=== PATIENT | female | born 1970 | race Caucasian/White ===

== ENCOUNTER 2017-06-05 21:13 | Emergency (ER) | payer SELFPAY ==
[~2017-06-05] VITALS: Ht 139.7 cm; Wt 93.0 kg
[2017-06-05 21:41] VITALS: BP 171/92
[2017-06-05] MEDS ORDERED: traMADol 50 MG TABLET PO ONE (22:00)
[2017-06-05] MEDS ORDERED: TRAM50TA PO (22:24)
--- NOTE | 2017-06-05 22:25 | PHYS DOC ---
Past Medical History Past Medical History: Other Additional Past Medical Histor: cycrodosis, nodules on lung, pancrease cyst, hearing problems, uterine CA Past Surgical History: Hysterectomy Alcohol Use: None Drug Use: None Adult General Chief Complaint Chief Complaint: LOWEREXTREMITY INJURY [facility] HPI Patient is a 47 year old female presents to the emergency department complaints of left knee pain. Patient states on May 26 she fell landing on the knee. She was evaluated at [facility] diagnosed with a patella fracture and asked to follow-up with orthopedics. Patient states that she was unable to follow-up with orthopedics and is here for persistent pain. Patient has been wearing an [id number] purchased knee immobilizer and she states that the immobilizer at the previous hospital was too big. Review of Systems Review of Systems Constitutional: Denies fever or chills [] Eyes: Denies change in visual acuity, redness, or eye pain [] HENT: Denies nasal congestion or sore throat [] Respiratory: Denies cough or shortness of breath [] Cardiovascular: No additional information not addressed in HPI [] GI: Denies abdominal pain, nausea, vomiting, bloody stools or diarrhea [] : Denies dysuria or hematuria [] Musculoskeletal: Left knee pain Integument: Denies rash or skin lesions [] Neurologic: Denies headache, focal weakness or sensory changes [] Endocrine: Denies polyuria or polydipsia [] Current Medications Current Medications Current Medications Medications (Trade) Dose Ordered Sig/Moraima Start Time Stop Time Status Last Admin Dose Admin Tramadol HCl (Ultram) 50 mg 1X ONCE 06/05/17 22:00 06/05/17 22:01 DC 06/05/17 21:55 50 MG Allergies Allergies Allergies Coded Allergies Type Severity Reaction Last Updated Verified No Known Drug Allergies 06/05/17 No Physical Exam Physical Exam Constitutional: Well developed, well nourished, no acute distress, non-toxic appearance. [] Neck: Normal range of motion, no tenderness, supple, no stridor. [] Cardiovascular:Heart rate regular rhythm, no murmur [] Lungs & Thorax: Bilateral breath sounds clear to auscultation [] Skin: Warm, dry, no erythema, no rash. [] Back: No tenderness, no CVA tenderness. [] Extremities: Left lower extremity exam: Left hip and left ankle exam unremarkable. Left knee without swelling without ecchymosis without apparent trauma. She is diffusely tender to palpate. Neurovascular intact distally. Neurologic: Alert and oriented X 3, normal motor function, normal sensory function, no focal deficits noted. [] Psychologic: Affect normal, judgement normal, mood normal. [] Current Patient Data Vital Signs Vital Signs Date Time Temp Pulse Resp B/P (MAP) Pulse Ox O2 Delivery O2 Flow Rate FiO2 06/05/17 21:55 16 97 Room Air 06/05/17 21:41 98.3 67 171/92 (118) 98.3 EKG EKG [] Radiology/Procedures Radiology/Procedures Right x-ray reveals a patella fracture [] Course & Med Decision Making Course & Med Decision Making Knee immobilizer placed by nursing staff. Patient tolerated well. Neurovascular intact distally. Pertinent Labs and Imaging studies reviewed. (See chart for details) [] Dragon Disclaimer Dragon Disclaimer This electronic medical record was generated, in whole or in part, using a voice recognition dictation system. Departure Departure Impression: Primary Impression: Patella fracture Disposition: 01 HOME, SELF-CARE Condition: STABLE Referrals: JOVITA RUSHING DO (PCP) Patient Instructions: Knee Immobilizer, [id number], Patellar Fracture, Adult Additional Instructions: Follow-up with Dr. Rushing tomorrow. You have been provided with a list of orthopedic physicians at [facility], please call and schedule an appointment. Scripts Tramadol Hcl (TRAMADOL HCL) 50 Mg Tablet 50 MG PO Q6H Y for PAIN, #20 TAB Prov: ADELITA SANDERS APRN 06/05/17 Problem Qualifiers Primary Impression: Patella fracture Encounter type: initial encounter Fracture type: closed Fracture morphology : transverse Fracture alignment: displaced Laterality: left Qualified Codes: S82.032A - Displaced transverse fracture of left patella, initial encounter for closed fracture ADELITA SANDERS APRN Jun 05, 2017 22:25
--- NOTE | 2017-06-06 07:18 | RAD ---
Left knee radiographs 06/05/2017 at 2158 hours Indication: History of patellar fracture Comparison: None available Technique: 4 views of the left knee are provided. Findings: There is a mildly distracted fracture of the inferior pole of the patella. The inferior fracture component appears fragmented. There is no fracture or dislocation involving the femur or tibia. There is prepatellar soft tissue swelling. No significant knee joint effusion. Mild medial femorotibial joint space narrowing. Impression: Mildly distracted fracture of the inferior pole of the patella. Correlation with prior radiographs would be of benefit to assess for any significant change.
== END 2017-06-05 23:04 | disposition home or self-care (01) ==
LOC: ER 21:13
DX: S82.092A Other fracture of left patella, initial encounter for closed fracture (principal); W18.39XA Other fall on same level, initial encounter; Y93.89 Activity, other specified; Y92.89 Other specified places as the place of occurrence of the external cause; Y99.8 Other external cause status
CPT/HCPCS: 29505; 73564; 99284-25

== ENCOUNTER 2019-08-02 20:16 | Emergency (ER) | payer MEDICARE, OTHER ==
[~2019-08-02] VITALS: Ht 139.7 cm; Wt 90.7 kg
[~2019-08-02 20:16] MED LIST: TRAM50TA PO
[2019-08-02 21:20] LABS: BILIRUBIN,URINE NEGATIVE (NEG); CLARITY,URINE CLEAR; COLOR,URINE YELLOW; NITRITE,URINE NEGATIVE (NEG); PH,URINE 6.5; PROTEIN,URINE NEGATIVE (NEG-TRACE)
[2019-08-02 21:32] LABS: RBC,URINE RARE /HPF (0-2); WBC,URINE RARE /HPF (0-4)
[2019-08-02 21:33] LABS: BACTERIA,URINE FEW /HPF (0-FEW); SQUAMOUS EPITHELIAL CELL,UR MOD /LPF
[2019-08-03] MEDS ORDERED: IV NORMAL SALINE 1000ML BAG 1,000 ML IV ONE
[2019-08-03] MEDS ORDERED: ONDANSETRON PF 4 MG/2 ML VIAL. IV ONE
[2019-08-03] MEDS ORDERED: KETOROLAC 15 MG/ML VIAL. IV ONE
[2019-08-03] MEDS ORDERED: FAMOTIDINE 20 MG/2 ML VIAL IVP ONE
[2019-08-03 00:22] LABS: BASO # 0.1 x10^3/uL (0.0-0.2); BASO % 1 % (0-3); EOS # 0.2 x10^3/uL (0.0-0.7); EOS % 2 % (0-3); HEMATOCRIT 38.6 % (36.0-47.0); HEMOGLOBIN 12.7 g/dL (12.0-15.5); LYMPH # 2.6 x10^3/uL (1.0-4.8); LYMPH % 23 % (24-48); MEAN CORPUSCULAR HEMOGLOBIN 30 pg (25-35); MEAN CORPUSCULAR HGB CONC 33 g/dL (31-37); MEAN CORPUSCULAR VOLUME 90 fL (79-100); MONO % 9 % (0-9); NEUT # 7.6 x10^3/uL (1.8-7.7); NEUT % 66 % (31-73); PLATELET COUNT 235 x10^3/uL (140-400); RED BLOOD COUNT 4.31 x10^6/uL (3.50-5.40); RED CELL DISTRIBUTION WIDTH 13.5 % (11.5-14.5); WHITE BLOOD COUNT 11.5 x10^3/uL (4.0-11.0)
[2019-08-03 00:30] LABS: CALCIUM 8.4 mg/dL (8.5-10.1); CREATININE 1.1 mg/dL (0.6-1.0); GFR 52.8; POTASSIUM 3.6 mmol/L (3.5-5.1)
[2019-08-03 00:35] LABS: PROTHROMBIN TIME PATIENT 14.5 SEC (11.7-14.0)
[2019-08-03 00:44] LABS: ALBUMIN 3.2 g/dL (3.4-5.0); ALBUMIN/GLOBULIN RATIO 0.8 (1.0-1.7); TOTAL BILIRUBIN 0.3 mg/dL (0.2-1.0); TOTAL PROTEIN 7.2 g/dL (6.4-8.2)
[2019-08-03 00:45] LABS: CREATINE KINASE 59 U/L (26-192)
[2019-08-03] MEDS ORDERED: fentaNYL PF VIAL 100 MCG/2 ML VIAL ONE (01:32)
[2019-08-03] MEDS ORDERED: fentaNYL PF VIAL 100 MCG/2 ML VIAL IV ONE (01:45)
[2019-08-03] MEDS ORDERED: IOHEXOL 240 MG/ML 50ML VIAL. PO ONE (02:00)
[2019-08-03] MEDS ORDERED: CONTRAST GIVEN. MC PRN (02:00)
[2019-08-03] MEDS ORDERED: IOHEXOL 300 MG/ML 100ML VIAL. IV ONE (02:00)
--- NOTE | 2019-08-03 02:38 | PHYS DOC ---
Past Medical History Past Medical History: Cancer, Depression, Hypertension, Hypothyroid, Other Additional Past Medical Histor: sarcoidosis, nodules on lung, pancreatic cyst, hearing problems, uterine CA Past Surgical History: Cholecystectomy, Hysterectomy, Tonsillectomy, Other Additional Past Surgical Histo: Bilateral ear tubes, L mastoidectomy, multiple hernia sx, B hammer toes Past Surgical History hernia repair Additional Information: Nonsmoker Alcohol Use: None Drug Use: None Adult General Chief Complaint Chief Complaint: ABDOMINAL PAIN HPI HPI 49-year-old female presents with worsening abdominal pain over last several d ays. Reports his been having similar type pain for several months. Patient is following currently with a general surgeon with concern for continued hernia despite mesh repair. General surgeon is waiting for patient to lose some extra weight. Patient denies any nausea or vomiting. Denies diarrhea. Denies fever or chills. Patient reports pain became worse and therefore patient presented to the ER for further evaluation. Denies known trauma. Review of Systems Review of Systems Constitutional: Denies fever or chills Eyes: Denies redness or eye pain HENT: Denies nasal congestion or sore throat Respiratory: Denies cough or shortness of breath Cardiovascular: Denies chest pain or palpitations GI: Reports abdominal pain; denies nausea or vomiting : Denies dysuria or hematuria Musculoskeletal: Denies back pain or joint pain Integument: Denies rash or skin lesions Neurologic: Denies headache, focal weakness or sensory changes Complete systems were reviewed and found to be within normal limits, except as documented in this note. Current Medications Current Medications Current Medications Medications (Trade) Dose Ordered Sig/Moraima Start Time Stop Time Status Last Admin Dose Admin Famotidine (Pepcid Vial) 20 mg 1X ONCE 08/03/19 00:00 08/03/19 00:05 DC 08/03/19 00:38 20 MG Fentanyl Citrate (Fentanyl 2ml Vial) 100 mcg STK-MED ONCE 08/03/19 01:32 08/03/19 01:33 DC Info (CONTRAST GIVEN -- Rx MONITORING) 1 each PRN DAILY PRN 08/03/19 02:00 08/05/19 01:59 Iohexol (Omnipaque 240 Mg/ml) 30 ml 1X ONCE 08/03/19 02:00 08/03/19 02:01 DC 08/03/19 02:25 30 ML Iohexol (Omnipaque 300 Mg/ml) 60 ml 1X ONCE 08/03/19 02:00 08/03/19 02:01 DC 08/03/19 02:25 60 ML Ketorolac Tromethamine (Toradol 15mg Vial) 15 mg 1X ONCE 08/03/19 00:00 08/03/19 00:05 DC 08/03/19 00:38 15 MG Ondansetron HCl (Zofran) 4 mg 1X ONCE 08/03/19 00:00 08/03/19 00:05 DC 08/03/19 00:38 4 MG Sodium Chloride 1,000 ml @ 1,000 mls/hr 1X ONCE 08/03/19 00:00 08/03/19 00:59 DC 08/03/19 00:38 1,000 MLS/HR Allergies Allergies Allergies Coded Allergies Type Severity Reaction Last Updated Verified erythromycin base Allergy Unknown GI Upset 08/02/19 Yes Physical Exam Physical Exam Constitutional: Well developed, well nourished, no acute distress, non-toxic appearance HENT: Normocephalic, atraumatic, oropharynx moist Eyes: Conjunctiva normal, no discharge Neck: Normal range of motion, no tenderness, supple Cardiovascular: Heart rate normal, regular rhythm Lungs & Thorax: Bilateral breath sounds clear to auscultation, no wheezing Abdomen: Soft, upper abdominal tenderness bilaterally, obese. Skin: Warm, dry, no erythema, no rash Back: No tenderness, no CVA tenderness Extremities: No tenderness, ROM intact, no edema Neurologic: Alert and oriented X 3, no focal deficits noted Psychologic: Affect normal, judgement normal Current Patient Data Vital Signs Vital Signs Date Time Temp Pulse Resp B/P (MAP) Pulse Ox O2 Delivery O2 Flow Rate FiO2 08/03/19 01:37 69 115/60 (78) 96 Room Air 08/02/19 21:20 97.7 17 97.7 Lab Values Laboratory Tests Test 08/02/19 21:05 08/02/19 21:09 08/03/19 00:05 Urine Collection Type Void Urine Color Yellow Urine Clarity Clear Urine pH 6.5 Urine Specific [place] >=1.030 Urine Protein Negative mg/dL (NEG-TRACE) Urine Glucose (UA) Negative mg/dL (NEG) Urine Ketones (Stick) Negative mg/dL (NEG) Urine Blood Negative (NEG) Urine Nitrite Negative (NEG) Urine Bilirubin Negative (NEG) Urine Urobilinogen Dipstick 1.0 mg/dL (0.2 mg/dL) Urine Leukocyte Esterase Negative (NEG) Urine RBC Rare /HPF (0-2) Urine WBC Rare /HPF (0-4) Urine Squamous Epithelial Cells Mod /LPF Urine Bacteria Few /HPF (0-FEW) Urine Mucus Marked /LPF POC Urine HCG, Qualitative Hcg negative (Negative) White Blood Count 11.5 x10^3/uL (4.0-11.0) H Red Blood Count 4.31 x10^6/uL (3.50-5.40) Hemoglobin 12.7 g/dL (12.0-15.5) Hematocrit 38.6 % (36.0-47.0) Mean Corpuscular Volume 90 fL (79-100) Mean Corpuscular Hemoglobin 30 pg (25-35) Mean Corpuscular Hemoglobin Concent 33 g/dL (31-37) Red Cell Distribution Width 13.5 % (11.5-14.5) Platelet Count 235 x10^3/uL (140-400) Neutrophils (%) (Auto) 66 % (31-73) Lymphocytes (%) (Auto) 23 % (24-48) L Monocytes (%) (Auto) 9 % (0-9) Eosinophils (%) (Auto) 2 % (0-3) Basophils (%) (Auto) 1 % (0-3) Neutrophils # (Auto) 7.6 x10^3/uL (1.8-7.7) Lymphocytes # (Auto) 2.6 x10^3/uL (1.0-4.8) Monocytes # (Auto) 1.0 x10^3/uL (0.0-1.1) Eosinophils # (Auto) 0.2 x10^3/uL (0.0-0.7) Basophils # (Auto) 0.1 x10^3/uL (0.0-0.2) Prothrombin Time 14.5 SEC (11.7-14.0) H Prothrombin Time INR 1.2 (0.8-1.1) H Activated Partial Thromboplast Time 33 SEC (24-38) Sodium Level 144 mmol/L (136-145) Potassium Level 3.6 mmol/L (3.5-5.1) Chloride Level 105 mmol/L (98-107) Carbon Dioxide Level 33 mmol/L (21-32) H Anion Gap 6 (6-14) Blood Urea Nitrogen 18 mg/dL (7-20) Creatinine 1.1 mg/dL (0.6-1.0) H Estimated GFR (Cockcroft-Gault) 52.8 BUN/Creatinine Ratio 16 (6-20) Glucose Level 95 mg/dL (70-99) Calcium Level 8.4 mg/dL (8.5-10.1) L Total Bilirubin 0.3 mg/dL (0.2-1.0) Aspartate Amino Transferase (AST) 28 U/L (15-37) Alanine Aminotransferase (ALT) 36 U/L (14-59) Alkaline Phosphatase 100 U/L (46-116) Creatine Kinase 59 U/L (26-192) Creatine Kinase MB (Mass) 0.9 ng/mL (0.0-3.6) Creatine Kinase MB Relative Index % (0-4) Troponin I Quantitative < 0.017 ng/mL (0.000-0.055) Total Protein 7.2 g/dL (6.4-8.2) Albumin 3.2 g/dL (3.4-5.0) L Albumin/Globulin Ratio 0.8 (1.0-1.7) L Lipase 181 U/L (73-393) Laboratory Tests 08/03/19 00:05 Laboratory Tests 08/03/19 00:05 EKG EKG @0008 NSR at 80bpm, NO ST elevation, V1-V3 nonspecific t wave inversion Radiology/Procedures Radiology/Procedures PROCEDURE: CT ABD PELV W/ORAL&IV CONTRAST CT ABD PELV W/ORAL IV CONTRAST History: Abdominal pain Comparison: None. Technique: After administration of intravenous contrast, helical CT of the abdomen and pelvis was performed from the lung bases through the ischial tuberosities. Coronal and sagittal reconstructions were obtained. 60 mL of Omnipaque renal were used. One or more of the following dose reduction techniques were utilized: Automated exposure control (AEC), Adjustment of mA and/or kV according to patient size, Use of iterative reconstruction technique such as ASiR, CT scan done according to ALARA and image gently/image wisely Abdomen Findings: No consolidation. Right lower lobe calcified granuloma. Multiple small pancreatic parenchyma calcifications consistent with chronic pancreatitis. Anterior along the anterior margin of the head of the pancreas there is a heterogeneous structure with surrounding inflammatory stranding measuring 3.5 x 2.2 x 3.1 cm. Portion of this structure demonstrates peripheral calcification. The liver, spleen, and bilateral adrenal glands are normal. Cholecystectomy. Symmetric renal enhancement. There is no focal renal mass. There is no hydronephrosis. The visualized loops of small bowel are normal. The visualized loops of large bowel are normal. There is no evidence of bowel obstruction. Appendix is normal. There is no free fluid. There is no mesenteric or retroperitoneal adenopathy. The abdominal aorta is normal in caliber. Pelvis Findings: Urinary bladder is normal. No pelvic free fluid. There is no pelvic or inguinal adenopathy. There is no acute bony abnormality. Wide neck ventral hernia containing large and small bowel without evidence of incarceration. IMPRESSION: Along the anterior margin of the pancreatic head is an indeterminate lesion measuring up to 3.5 cm with surrounding inflammatory stranding. This might represent acute on chronic pancreatitis, or possibly sequela of chronic pancreatitis such as calcified pseudocyst. Correlate with laboratory values. Further evaluation with nonemergent MRI should be considered, as a neoplastic process could have a similar appearance. Electronically signed by: Tyrel Leo MD (08/03/2019 3:12 AM) [facility] Course & Med Decision Making Course & Med Decision Making Pertinent Labs and Imaging studies reviewed. (See chart for details) Patient presents with upper abdominal pain with past surgical history of prior hernia repair requiring revision. Patient denies any nausea or vomiting. Symptomatic treatment provided. IV fluid hydration given. EKG stable. Labs obtained and posted to chart. CT abdomen/pelvis with nonspecific pancreatic swelling. Hx of pseudocyst. Lipase WNL. Patient offered admission vs outpatient follow-up with GI. Patient elects to follow up as outpatient. Patient stable for discharge with outpatient follow-up with PCP/GI/General Surgery with contrast. Discussed findings and plan with patient and family, who acknowledge understanding and agreement. Dragon Disclaimer Dragon Disclaimer This electronic medical record was generated, in whole or in part, using a voice recognition dictation system. Departure Departure Impression: Primary Impression: Abdominal pain Additional Impression: Pancreatic lesion Disposition: HOME, SELF-CARE Condition: STABLE Referrals: ROSEANN ESCAMILLA MD (PCP) CORINNE GARCIA MD, SCOTT S MD Patient Instructions: Abdominal Pain (Nonspecific), Incidental Abdominal Radiological Finding Scripts Oxycodone HCl/Acetaminophen (Percocet 5-325 mg Tablet) 1 Each Tablet 0.5-1 EACH PO Q6HRS PRN for PAIN, #14 TAB Prov: CYNTHIA JARRETT DO 08/03/19 Problem Qualifiers Primary Impression: Abdominal pain Abdominal location: upper abdomen, unspecified Qualified Codes: R10.10 - Upper abdominal pain, unspecified CYNTHIA JARRETT DO Aug 03, 2019 02:38
--- NOTE | 2019-08-03 03:16 | RAD ---
CT ABD PELV W/ORAL IV CONTRAST History: Abdominal pain Comparison: None. Technique: After administration of intravenous contrast, helical CT of the abdomen and pelvis was performed from the lung bases through the ischial tuberosities. Coronal and sagittal reconstructions were obtained. 60 mL of Omnipaque renal were used. One or more of the following dose reduction techniques were utilized: Automated exposure control (AEC), Adjustment of mA and/or kV according to patient size, Use of iterative reconstruction technique such as ASiR, CT scan done according to ALARA and image gently/image wisely Abdomen Findings: No consolidation. Right lower lobe calcified granuloma. Multiple small pancreatic parenchyma calcifications consistent with chronic pancreatitis. Anterior along the anterior margin of the head of the pancreas there is a heterogeneous structure with surrounding inflammatory stranding measuring 3.5 x 2.2 x 3.1 cm. Portion of this structure demonstrates peripheral calcification. The liver, spleen, and bilateral adrenal glands are normal. Cholecystectomy. Symmetric renal enhancement. There is no focal renal mass. There is no hydronephrosis. The visualized loops of small bowel are normal. The visualized loops of large bowel are normal. There is no evidence of bowel obstruction. Appendix is normal. There is no free fluid. There is no mesenteric or retroperitoneal adenopathy. The abdominal aorta is normal in caliber. Pelvis Findings: Urinary bladder is normal. No pelvic free fluid. There is no pelvic or inguinal adenopathy. There is no acute bony abnormality. Wide neck ventral hernia containing large and small bowel without evidence of incarceration. IMPRESSION: Along the anterior margin of the pancreatic head is an indeterminate lesion measuring up to 3.5 cm with surrounding inflammatory stranding. This might represent acute on chronic pancreatitis, or possibly sequela of chronic pancreatitis such as calcified pseudocyst. Correlate with laboratory values. Further evaluation with nonemergent MRI should be considered, as a neoplastic process could have a similar appearance. Electronically signed by: Tyrel Leo MD (08/03/2019 3:12 AM) [facility]
[2019-08-03 03:18] VITALS: BP 124/71
[2019-08-03] MEDS ORDERED: OXYC-325 PO (03:38)
--- NOTE | 2019-08-03 05:20 | EKG ---
[facility] [address] [place] [address] Test Date: 2019-08-03 Test Time: 00:09:34 Pat Name: RODERICK JAVIER Department: Room: Gender: F Ampoule Filler: : 1970 Requested By: CYNTHIA JARRETT Order Number: [id number] Reading MD: Measurements Intervals [place] Rate: 80 P: 38 MI: 132 QRS: 32 QRSD: 86 T: 53 QT: 394 QTc: 458 Interpretive Statements SINUS RHYTHM QRS(T) CONTOUR ABNORMALITY CONSIDER ANTEROLATERAL MYOCARDIAL DAMAGE CONSIDER INFERIOR MYOCARDIAL DAMAGE POSSIBLY ABNORMAL ECG RI6.01 No previous ECG available for comparison
== END 2019-08-03 03:54 | disposition home or self-care (01) ==
LOC: ER 20:16
DX: K86.89 Other specified diseases of pancreas (principal); I10 Essential (primary) hypertension; E03.9 Hypothyroidism, unspecified; Z90.49 Acquired absence of other specified parts of digestive tract; Z90.710 Acquired absence of both cervix and uterus; Z98.890 Other specified postprocedural states; Z88.1 Allergy status to other antibiotic agents
CPT/HCPCS: 36415; 74177; 80053; 81001; 81025; 82553; 83690; 84484; 85025; 85610; 85730; 93005; 96374; 96375; 99285; J1885; J2405; J3010; J3490; J7030; Q9966; Q9967

== ENCOUNTER 2019-08-08 19:20 | Inpatient (IN) | payer MEDICARE, OTHER ==
[~2019-08-08] VITALS: Ht 139.7 cm; Wt 90.7 kg
[~2019-08-08 19:20] MED LIST changes: +OXYC-325 PO
[2019-08-08 20:10] LABS: BILIRUBIN,URINE NEGATIVE (NEG); CLARITY,URINE CLEAR; COLOR,URINE YELLOW; NITRITE,URINE NEGATIVE (NEG); PROTEIN,URINE NEGATIVE (NEG-TRACE); UROBILINOGEN,URINE 0.2 mg/dL (0.2 mg/dL)
--- NOTE | 2019-08-08 20:12 | PHYS DOC ---
Past Medical History Past Medical History: Cancer, Depression, Hypertension, Hypothyroid, Other Additional Past Medical Histor: sarcoidosis, nodules on lung, pancreatic cyst, hearing problems, uterine CA Past Surgical History: Cholecystectomy, Hysterectomy, Tonsillectomy, Other Additional Past Surgical Histo: Bilateral ear tubes, L mastoidectomy, multiple hernia sx, B hammer toes Additional Information: Nonsmoker Alcohol Use: None Drug Use: None Adult General Chief Complaint Chief Complaint: ABDOMINAL PAIN HPI HPI 49-year-old female presents with 3 week history of continued abdominal pain with some associated nausea. Patient had been seen in the emergency department on 08/02/19. Patient at that time had had some CT imaging which was concerning for pancreatitis however lipase was within normal limits. 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 Patient was offered admission at that time but had elected to try to follow-up as an outpatient. Patient reports she has been unable to follow up with a GI specialist or her PCP and reports her pain medication is not helping. Denies any fever or chills. Denies trauma. Patient reports a headache today. Review of Systems Review of Systems Constitutional: Denies fever or chills; ports generalized malaise Eyes: Denies redness or eye pain HENT: Denies nasal congestion or sore throat Respiratory: Denies cough or shortness of breath Cardiovascular: Denies chest pain or palpitations GI: Reports abdominal pain and nausea; denies vomiting or diarrhea : Denies dysuria or hematuria Musculoskeletal: Denies back pain or joint pain Integument: Denies rash or skin lesions Neurologic: Reports headache; denies focal weakness or sensory changes Complete systems were reviewed and found to be within normal limits, except as documented in this note. Current Medications Current Medications Current Medications Medications (Trade) Dose Ordered Sig/Moraima Start Time Stop Time Status Last Admin Dose Admin Famotidine (Pepcid Vial) 20 mg 1X ONCE 08/08/19 20:30 08/08/19 20:31 DC 08/08/19 20:33 20 MG Fluconazole (Diflucan) 200 mg 1X ONCE 08/08/19 21:00 08/08/19 21:01 DC 08/08/19 20:47 200 MG Ketorolac Tromethamine (Toradol 15mg Vial) 15 mg 1X ONCE 08/08/19 20:15 08/08/19 20:16 DC 08/08/19 20:33 15 MG Ondansetron HCl (Zofran) 4 mg 1X ONCE 08/08/19 20:30 08/08/19 20:31 DC 08/08/19 20:33 4 MG Sodium Chloride 1,000 ml @ 1,000 mls/hr 1X ONCE 08/08/19 20:30 08/08/19 21:29 DC 08/08/19 20:33 1,000 MLS/HR Allergies Allergies Allergies Coded Allergies Type Severity Reaction Last Updated Verified acetaminophen Allergy Intermediate 08/08/19 Yes oxycodone Allergy Intermediate 08/08/19 Yes erythromycin base Adverse Reaction Intermediate GI Upset 08/08/19 Yes Physical Exam Physical Exam Constitutional: Well developed, well nourished, obese, uncomfortable, non-toxic appearance HENT: Normocephalic, atraumatic, oropharynx moist Eyes: Conjunctiva normal, no discharge Neck: Normal range of motion, no tenderness, supple Cardiovascular: Heart rate normal, regular rhythm Lungs & Thorax: Bilateral breath sounds clear to auscultation, no wheezing Abdomen: Soft, distended, left upper quadrant abdominal tenderness on palpation, no rebound tenderness, no guarding Skin: Warm, dry, no erythema, no rash Back: No tenderness, no CVA tenderness Extremities: No tenderness, ROM intact, no edema Neurologic: Alert and oriented X 3, speech normal, no focal deficits noted Psychologic: Affect normal, judgement normal Current Patient Data Vital Signs Vital Signs Date Time Temp Pulse Resp B/P (MAP) Pulse Ox O2 Delivery O2 Flow Rate FiO2 08/08/19 19:30 98.9 75 18 121/85 (97) 100 Room Air 98.9 Lab Values Laboratory Tests Test 08/08/19 19:20 08/08/19 20:24 Urine Collection Type Unknown Urine Color Yellow Urine Clarity Clear Urine pH 8.0 Urine Specific [place] 1.015 Urine Protein Negative mg/dL (NEG-TRACE) Urine Glucose (UA) Negative mg/dL (NEG) Urine Ketones (Stick) Negative mg/dL (NEG) Urine Blood Negative (NEG) Urine Nitrite Negative (NEG) Urine Bilirubin Negative (NEG) Urine Urobilinogen Dipstick 0.2 mg/dL (0.2 mg/dL) Urine Leukocyte Esterase Negative (NEG) Urine RBC Occ /HPF (0-2) Urine WBC 1-4 /HPF (0-4) Urine Bacteria Moderate /HPF (0-FEW) Urine Mucus Mod /LPF Urine Yeast Present /HPF White Blood Count 10.4 x10^3/uL (4.0-11.0) Red Blood Count 4.13 x10^6/uL (3.50-5.40) Hemoglobin 12.2 g/dL (12.0-15.5) Hematocrit 36.4 % (36.0-47.0) Mean Corpuscular Volume 88 fL (79-100) Mean Corpuscular Hemoglobin 30 pg (25-35) Mean Corpuscular Hemoglobin Concent 34 g/dL (31-37) Red Cell Distribution Width 13.4 % (11.5-14.5) Platelet Count 227 x10^3/uL (140-400) Neutrophils (%) (Auto) 73 % (31-73) Lymphocytes (%) (Auto) 16 % (24-48) L Monocytes (%) (Auto) 8 % (0-9) Eosinophils (%) (Auto) 2 % (0-3) Basophils (%) (Auto) 1 % (0-3) Neutrophils # (Auto) 7.6 x10^3/uL (1.8-7.7) Lymphocytes # (Auto) 1.7 x10^3/uL (1.0-4.8) Monocytes # (Auto) 0.8 x10^3/uL (0.0-1.1) Eosinophils # (Auto) 0.2 x10^3/uL (0.0-0.7) Basophils # (Auto) 0.1 x10^3/uL (0.0-0.2) Prothrombin Time 13.9 SEC (11.7-14.0) Prothrombin Time INR 1.1 (0.8-1.1) Activated Partial Thromboplast Time 34 SEC (24-38) Sodium Level 144 mmol/L (136-145) Potassium Level 3.9 mmol/L (3.5-5.1) Chloride Level 105 mmol/L (98-107) Carbon Dioxide Level 32 mmol/L (21-32) Anion Gap 7 (6-14) Blood Urea Nitrogen 13 mg/dL (7-20) Creatinine 0.9 mg/dL (0.6-1.0) Estimated GFR (Cockcroft-Gault) 66.5 BUN/Creatinine Ratio 14 (6-20) Glucose Level 91 mg/dL (70-99) Lactic Acid Level 1.0 mmol/L (0.4-2.0) Calcium Level 8.7 mg/dL (8.5-10.1) Magnesium Level 1.8 mg/dL (1.8-2.4) Total Bilirubin 0.4 mg/dL (0.2-1.0) Aspartate Amino Transferase (AST) 140 U/L (15-37) H Alanine Aminotransferase (ALT) 157 U/L (14-59) H Alkaline Phosphatase 162 U/L (46-116) H Creatine Kinase 98 U/L (26-192) Creatine Kinase MB (Mass) 1.0 ng/mL (0.0-3.6) Creatine Kinase MB Relative Index 1.0 % (0-4) Troponin I Quantitative < 0.017 ng/mL (0.000-0.055) Total Protein 7.2 g/dL (6.4-8.2) Albumin 3.1 g/dL (3.4-5.0) L Albumin/Globulin Ratio 0.8 (1.0-1.7) L Lipase 568 U/L (73-393) H Laboratory Tests 08/08/19 20:24 Laboratory Tests 08/08/19 20:24 EKG EKG @2006 NSR at 73bpm, NO ST elevation, nonspecific t wave inversion V1-V6 Radiology/Procedures Radiology/Procedures [] Course & Med Decision Making Course & Med Decision Making Pertinent Labs and Imaging studies reviewed. (See chart for details) Patient presents with report of continued abdominal pain with associated nausea. Patient has had a prior history of a hernia and had been seen on 08/02/2019 with concern that pain was secondary to her hernia. CT imaging was performed at that time which noted some inflammatory changes around pancreas. Patient does have a history of a pseudocyst. Lipase at that time was within normal limits. Patient had previously been offered admission but had elected to follow-up as an outpatient. Patient reports she has been unable to follow with her PCP and/or GI specialist. Reports her pain medication does not seem to be helping. Patient presents today reporting "I can't do it anymore ". Patient also complaining of some headache which started today. Abdomen non-peritoneal. Labs obtained and posted to chart. Lipase 560s. LFT slightly elevated. Hx of prior cholecystectomy. UA with yeast noted. Diflucan given. EKG stable. Held further CT imaging due to recent study. Patient requiring admission for further evaluation and treatment. Discussed with Dr. Crowley (hospitalist) who is in agreement with admission. GI consult placed. Discussed findings and plan with patient and family, who acknowledge understanding and agreement. Dragon Disclaimer Dragon Disclaimer This electronic medical record was generated, in whole or in part, using a voice recognition dictation system. Departure Departure Impression: Primary Impression: Intractable abdominal pain Additional Impressions: Failure of outpatient treatment Yeast cystitis Elevated lipase Elevated LFTs Disposition: ADMITTED INPATIENT Admitting Physician: JOSE ALFREDO ([place]) Condition: STABLE Referrals: ROSEANN ESCAMILLA MD (PCP) Problem Qualifiers CYNTHIA JARRETT DO Aug 08, 2019 20:12
[2019-08-08] MEDS ORDERED: KETOROLAC 15 MG/ML VIAL. IV ONE (20:15)
[2019-08-08 20:20] LABS: BACTERIA,URINE MODERATE /HPF (0-FEW); YEAST,URINE PRESENT /HPF
[2019-08-08 20:21] LABS: RBC,URINE OCC /HPF (0-2)
[2019-08-08] MEDS ORDERED: ONDANSETRON PF 4 MG/2 ML VIAL. IV ONE (20:30)
[2019-08-08] MEDS ORDERED: FAMOTIDINE 20 MG/2 ML VIAL IVP ONE (20:30)
[2019-08-08] MEDS ORDERED: IV NORMAL SALINE 1000ML BAG 1,000 ML IV ONE (20:30)
[2019-08-08 20:39] LABS: BASO # 0.1 x10^3/uL (0.0-0.2); BASO % 1 % (0-3); EOS # 0.2 x10^3/uL (0.0-0.7); EOS % 2 % (0-3); HEMATOCRIT 36.4 % (36.0-47.0); HEMOGLOBIN 12.2 g/dL (12.0-15.5); LYMPH # 1.7 x10^3/uL (1.0-4.8); LYMPH % 16 % (24-48); MEAN CORPUSCULAR HEMOGLOBIN 30 pg (25-35); MEAN CORPUSCULAR HGB CONC 34 g/dL (31-37); MEAN CORPUSCULAR VOLUME 88 fL (79-100); MONO # 0.8 x10^3/uL (0.0-1.1); MONO % 8 % (0-9); NEUT # 7.6 x10^3/uL (1.8-7.7); NEUT % 73 % (31-73); PLATELET COUNT 227 x10^3/uL (140-400); RED BLOOD COUNT 4.13 x10^6/uL (3.50-5.40); RED CELL DISTRIBUTION WIDTH 13.4 % (11.5-14.5); WHITE BLOOD COUNT 10.4 x10^3/uL (4.0-11.0)
[2019-08-08 20:48] LABS: CALCIUM 8.7 mg/dL (8.5-10.1); CREATININE 0.9 mg/dL (0.6-1.0); GFR 66.5; POTASSIUM 3.9 mmol/L (3.5-5.1); PROTHROMBIN TIME PATIENT 13.9 SEC (11.7-14.0)
[2019-08-08 20:54] LABS: ALBUMIN 3.1 g/dL (3.4-5.0); ALBUMIN/GLOBULIN RATIO 0.8 (1.0-1.7); MAGNESIUM 1.8 mg/dL (1.8-2.4); TOTAL BILIRUBIN 0.4 mg/dL (0.2-1.0); TOTAL PROTEIN 7.2 g/dL (6.4-8.2)
[2019-08-08] MEDS ORDERED: FLUCONAZOLE 100 MG TABLET. PO ONE (21:00)
[2019-08-08] MEDS ORDERED: ONDANSETRON PF 4 MG/2 ML VIAL. IV PRN (21:45)
[2019-08-08] MEDS ORDERED: fentaNYL PF VIAL 100 MCG/2 ML VIAL IV ONE (22:00)
[2019-08-08 22:20] VITALS: BP 135/80
[2019-08-08] MEDS: fentaNYL PF VIAL 100 MCG/2 ML VIAL IV PRN (23:40)
[2019-08-09] MEDS ORDERED: CALC-56 PO (00:30)
[2019-08-09] MEDS ORDERED: DOCU50CA9 PO (00:30)
[2019-08-09] MEDS ORDERED: LISI-338 PO (00:30)
[2019-08-09] MEDS ORDERED: LEVO137T3 PO (00:30)
[2019-08-09] MEDS ORDERED: PANT20TA2 PO (00:30)
[2019-08-09] MEDS ORDERED: ACET500T33 PO (00:30)
[2019-08-09] MEDS ORDERED: VENL150C PO (00:30)
[2019-08-09] MEDS ORDERED: GLUC1TAB26 PO (00:30)
[2019-08-09] MEDS: fentaNYL PF VIAL 100 MCG/2 ML VIAL IV PRN ×2 (02:40→08:29)
[2019-08-09 02:58] VITALS: BP 124/79
--- NOTE | 2019-08-09 06:16 | EKG ---
[facility] [address] [place] [address] Test Date: 2019-08-08 Test Time: 20:06:00 Pat Name: RODERICK JAVIER Department: Room: 418 Gender: F Shearer [employer]immer: : 1970 Requested By: CYNTHIA JARRETT Order Number: [id number] Reading MD: Monroe Higuera MD Measurements Intervals [place] Rate: 73 P: 34 [place]: 136 QRS: 22 QRSD: 90 T: 4 QT: 390 QTc: 433 Interpretive Statements SINUS RHYTHM LOW LIMB LEAD VOLTAGE QRS(T) CONTOUR ABNORMALITY CONSIDER ANTEROSEPTAL MYOCARDIAL DAMAGE T ABNORMALITY IN INFERIOR LEADS ABNORMAL ECG Electronically Signed On 08-22-2019 21:26:59 CDT by Monroe Higuera MD
[2019-08-09 07:00] VITALS: BP 121/82
[2019-08-09] MEDS ORDERED: ONDANSETRON PF 4 MG/2 ML VIAL. IV PRN (08:00)
[2019-08-09] MEDS: IV NORMAL SALINE 1000ML BAG 1,000 ML IV SCH ×2 (08:26→15:56)
[2019-08-09] MEDS: LISINOPRIL 5 MG TABLET. PO SCH (08:43)
[2019-08-09] MEDS: CALCIUM CARB/VIT D3 500/200 TABLET. PO SCH (08:43)
[2019-08-09] MEDS: DOCUSATE SODIUM 100 MG CAPSULE. PO SCH (08:43)
[2019-08-09] MEDS: VENLAFAXINE 50 MG TABLET. PO SCH ×3 (08:43→22:07)
[2019-08-09] MEDS ORDERED: methylPREDNISolone SOD SUCC PF 125 MG/2 ML VIAL. IV ONE (09:00)
[2019-08-09] MEDS ORDERED: [UNRECOGNIZED DRUG - OTHER] PO SCH (09:00)
[2019-08-09] MEDS ORDERED: guaiFENesin DM 200MG/20MG 10 ML SYRUP PO PRN (09:00)
[2019-08-09] MEDS ORDERED: IPRATRPIUM/ALBUTEROL 0.5/2.5MG 3 ML NEBU. NEB ONE (09:00)
[2019-08-09] MEDS: LEVOTHYROXINE 137 MCG TABLET PO SCH (09:07)
--- NOTE | 2019-08-09 09:27 | PDOC1 ---
History and Physical Date of Admission Date of Admission DATE: 08/09/19 TIME: 09:21 Identification/Chief Complaint Chief Complaint epig pain Source Source: Caregiver, Chart review, Patient History of Present Illness History of Present Illness 49 obese female, hx only seasonal allergies, wheezy for maybe a week or 2 now,but came in for epig pain, was at ER 08/02, acute panc on CT. Sent home, BAck again for epig pain, lipase 563, non toxic appearing, wheezy, GI consulted, will review, STill epig pain but no guarding, NEver smoker, non smoker, only seasonal allergies, never had pFTs done, NON DM, only takes effexor and BP meds. NO known prev hx acute pancreatitis Past Medical History Cardiovascular: HTN, Hyperlipidemia Past Surgical History Past Surgical History: Hysterectomy Family History Family History: Hypertension Social History Smoke: No ALCOHOL: none Drugs: None Current Problem List Problem List Problems Medical Problems: (1) Elevated LFTs Status: Acute (2) Elevated lipase Status: Acute (3) Failure of outpatient treatment Status: Acute (4) Intractable abdominal pain Status: Acute (5) Yeast cystitis Status: Acute Current Medications Current Medications Current Medications Ondansetron HCl (Zofran) 4 mg 1X ONCE IV Last administered on 08/08/19at 20:33; Start 08/08/19 at 20:30; Stop 08/08/19 at 20:31; Status DC Famotidine (Pepcid Vial) 20 mg 1X ONCE IVP Last administered on 08/08/19at 20:33; Start 08/08/19 at 20:30; Stop 08/08/19 at 20:31; Status DC Ketorolac Tromethamine (Toradol 15mg Vial) 15 mg 1X ONCE IV Last administered on 08/08/19at 20:33; Start 08/08/19 at 20:15; Stop 08/08/19 at 20:16; Status DC Sodium Chloride 1,000 ml @ 1,000 mls/hr 1X ONCE IV Last administered on 08/08/19at 20:33; Start 08/08/19 at 20:30; Stop 08/08/19 at 21:29; Status DC Fluconazole (Diflucan) 200 mg 1X ONCE PO Last administered on 08/08/19at 20:47; Start 08/08/19 at 21:00; Stop 08/08/19 at 21:01; Status DC Fentanyl Citrate (Fentanyl 2ml Vial) 50 mcg 1X ONCE IV Last administered on 08/08/19at 21:51; Start 08/08/19 at 22:00; Stop 08/08/19 at 22:01; Status DC Ondansetron HCl (Zofran) 4 mg PRN Q8HRS PRN IV NAUSEA/VOMITING 1ST CHOICE; Start 08/08/19 at 21:45; Stop 08/09/19 at 08:01; Status DC Fentanyl Citrate (Fentanyl 2ml Vial) 50 mcg PRN Q2HRS PRN IV SEVERE PAIN 7-10 Last administered on 08/09/19at 08:29; Start 08/08/19 at 21:45 Sodium Chloride 1,000 ml @ 100 mls/hr Q10H IV Last administered on 08/09/19at 08:29; Start 08/09/19 at 08:00 Ondansetron HCl (Zofran) 4 mg PRN Q6HRS PRN IV NAUSEA/VOMITING 1ST CHOICE; S tart 08/09/19 at 08:00; Stop 08/10/19 at 07:59 Tramadol HCl (Ultram) 50 mg PRN Q6HRS PRN PO MILD TO MODERATE PAIN; Start 08/09/19 at 08:00 Acetaminophen (Tylenol) 500 mg PRN Q6HRS PRN PO MILD PAIN 1-3; Start 08/09/19 at 08:00 Calcium/Vitamin D (Oscal D 500mg/ 200uts) 1 tab DAILY PO Last administered on 08/09/19at 08:44; Start 08/09/19 at 09:00 Levothyroxine Sodium (Synthroid) 137 mcg DAILY06 PO Last administered on 08/09/19at 09:08; Start 08/09/19 at 10:30 Lisinopril (Prinivil) 5 mg DAILY PO Last administered on 08/09/19at 08:44; Start 08/09/19 at 09:00 Docusate Sodium (Colace) 100 mg DAILY PO Last administered on 08/09/19at 08:44; Start 08/09/19 at 09:00 Non-Formulary Medication (Gluc/Servando-Msm#2/ C/D3/Fran/Born (Hdpwnkhfov-Tlgvjbmmayk-Qbe Tab)) 1 tab-cap DAILY PO ; Start 08/09/19 at 09:00; Status UNV Pantoprazole Sodium (Protonix) 40 mg DAILYAC PO ; Start 08/09/19 at 11:30 Venlafaxine HCl (Effexor) 50 mg TID PO Last administered on 08/09/19at 08:44; Start 08/09/19 at 09:00 Albuterol/ Ipratropium (Duoneb) 3 ml RTQID NEB ; Start 08/09/19 at 12:00 Albuterol/ Ipratropium (Duoneb) 3 ml 1X ONCE NEB Last administered on 08/09/19at 09:08; Start 08/09/19 at 09:00; Stop 08/09/19 at 09:01; Status DC Methylprednisolone Sodium Succinate (SOLU-Medrol 125MG VIAL) 125 mg 1X ONCE IV Last administered on 08/09/19at 09:08; Start 08/09/19 at 09:00; Stop 08/09/19 at 09:01; Status DC Methylprednisolone Sodium Succinate (SOLU-Medrol 40MG VIAL) 40 mg Q8HRS IV ; Start 08/09/19 at 14:00 Guaifenesin (Robitussin Dm) 10 ml PRN Q6HRS PRN PO COUGH; Start 08/09/19 at 09:00 Active Scripts Active Reported Rxtqaeavse-Dfmudhdwvsw-Efn Tab (Gluc/Servando-Msm#2/C/D3/Fran/Born) 1 Each Tablet 1 Tab-Cap PO DAILY Effexor Xr (Venlafaxine Hcl) 150 Mg Cap.er.24h 1 Cap PO DAILY Levothyroxine Sodium 137 Mcg Tablet 1 Tab PO DAILY Lisinopril 5 Mg Tablet 1 Tab PO DAILY Protonix (Pantoprazole Sodium) 20 Mg Tablet.dr 1 Tab PO DAILY Stool Softener (Docusate Sodium) 50 Mg Capsule 50 Mg PO DAILY Tylenol Extra Strength (Acetaminophen) 500 Mg Tablet 500 Mg PO Q6HRS PRN Calcium 500 + Vit D 200 Caplet (Calcium Carbonate/Vitamin D3) 1 Each Tablet 1 Each PO DAILY Allergies Allergies: Coded Allergies: oxycodone (Verified Allergy, Intermediate, 08/08/19) erythromycin base (Verified Adverse Reaction, Intermediate, GI Upset , 08/08/19) ROS Review of System as per hpi, all else neg 14 pt system Physical Exam General: Alert, Oriented X3, Cooperative, No acute distress HEENT: Atraumatic, PERRLA Lungs: Normal air movement, Other (sce, wheezy very aunterior and posterior) Heart: S1S2, RRR, no thrills, no rubs, no murmurs Cardiovascular: S1, S2 Breasts: Normal, Rt breast nml w/o mass, Lt breast nml w/o mass, Nipples normal Abdomen: Normal bowel sounds, Soft, No tenderness, No hepatosplenomegaly, No masses Rectal Exam: not examined PELVIC: Nml ext genitalia Extremities: No clubbing, No cyanosis, No edema, Normal pulses, No tenderness/swelling Skin: No rashes, No breakdown, No significant lesion Neuro: Normal gait, Normal speech, Strength at 5/5 X4 ext, Normal tone, Sensation intact, Cranial nerves 3-12 NL, Reflexes 2+ Psych/Mental Status: Mental status NL, Mood NL Vitals Vitals Vital Signs Date Time Temp Pulse Resp B/P (MAP) Pulse Ox O2 Delivery O2 Flow Rate FiO2 08/09/19 09:10 98 Room Air 08/09/19 09:04 2.0 08/09/19 08:44 70 121/82 08/09/19 07:00 97.7 14 97.7 Labs Labs Laboratory Tests Test 08/08/19 19:20 08/08/19 20:24 Urine Collection Type Unknown Urine Color Yellow Urine Clarity Clear Urine pH 8.0 Urine Specific [place] 1.015 Urine Protein Negative mg/dL (NEG-TRACE) Urine Glucose (UA) Negative mg/dL (NEG) Urine Ketones (Stick) Negative mg/dL (NEG) Urine Blood Negative (NEG) Urine Nitrite Negative (NEG) Urine Bilirubin Negative (NEG) Urine Urobilinogen Dipstick 0.2 mg/dL (0.2 mg/dL) Urine Leukocyte Esterase Negative (NEG) Urine RBC Occ /HPF (0-2) Urine WBC 1-4 /HPF (0-4) Urine Bacteria Moderate /HPF (0-FEW) Urine Mucus Mod /LPF Urine Yeast Present /HPF White Blood Count 10.4 x10^3/uL (4.0-11.0) Red Blood Count 4.13 x10^6/uL (3.50-5.40) Hemoglobin 12.2 g/dL (12.0-15.5) Hematocrit 36.4 % (36.0-47.0) Mean Corpuscular Volume 88 fL (79-100) Mean Corpuscular Hemoglobin 30 pg (25-35) Mean Corpuscular Hemoglobin Concent 34 g/dL (31-37) Red Cell Distribution Width 13.4 % (11.5-14.5) Platelet Count 227 x10^3/uL (140-400) Neutrophils (%) (Auto) 73 % (31-73) Lymphocytes (%) (Auto) 16 % (24-48) Monocytes (%) (Auto) 8 % (0-9) Eosinophils (%) (Auto) 2 % (0-3) Basophils (%) (Auto) 1 % (0-3) Neutrophils # (Auto) 7.6 x10^3/uL (1.8-7.7) Lymphocytes # (Auto) 1.7 x10^3/uL (1.0-4.8) Monocytes # (Auto) 0.8 x10^3/uL (0.0-1.1) Eosinophils # (Auto) 0.2 x10^3/uL (0.0-0.7) Basophils # (Auto) 0.1 x10^3/uL (0.0-0.2) Prothrombin Time 13.9 SEC (11.7-14.0) Prothromb Time International Ratio 1.1 (0.8-1.1) Activated Partial Thromboplast Time 34 SEC (24-38) Sodium Level 144 mmol/L (136-145) Potassium Level 3.9 mmol/L (3.5-5.1) Chloride Level 105 mmol/L (98-107) Carbon Dioxide Level 32 mmol/L (21-32) Anion Gap 7 (6-14) Blood Urea Nitrogen 13 mg/dL (7-20) Creatinine 0.9 mg/dL (0.6-1.0) Estimated GFR (Cockcroft-Gault) 66.5 BUN/Creatinine Ratio 14 (6-20) Glucose Level 91 mg/dL (70-99) Lactic Acid Level 1.0 mmol/L (0.4-2.0) Calcium Level 8.7 mg/dL (8.5-10.1) Magnesium Level 1.8 mg/dL (1.8-2.4) Total Bilirubin 0.4 mg/dL (0.2-1.0) Aspartate Amino Transf (AST/SGOT) 140 U/L (15-37) Alanine Aminotransferase (ALT/SGPT) 157 U/L (14-59) Alkaline Phosphatase 162 U/L (46-116) Creatine Kinase 98 U/L (26-192) Creatine Kinase MB (Mass) 1.0 ng/mL (0.0-3.6) Creatine Kinase MB Relative Index 1.0 % (0-4) Troponin I Quantitative < 0.017 ng/mL (0.000-0.055) Total Protein 7.2 g/dL (6.4-8.2) Albumin 3.1 g/dL (3.4-5.0) Albumin/Globulin Ratio 0.8 (1.0-1.7) Lipase 568 U/L (73-393) Laboratory Tests Test 08/08/19 19:20 08/08/19 20:24 Urine Collection Type Unknown Urine Color Yellow Urine Clarity Clear Urine pH 8.0 Urine Specific [place] 1.015 Urine Protein Negative mg/dL (NEG-TRACE) Urine Glucose (UA) Negative mg/dL (NEG) Urine Ketones (Stick) Negative mg/dL (NEG) Urine Blood Negative (NEG) Urine Nitrite Negative (NEG) Urine Bilirubin Negative (NEG) Urine Urobilinogen Dipstick 0.2 mg/dL (0.2 mg/dL) Urine Leukocyte Esterase Negative (NEG) Urine RBC Occ /HPF (0-2) Urine WBC 1-4 /HPF (0-4) Urine Bacteria Moderate /HPF (0-FEW) Urine Mucus Mod /LPF Urine Yeast Present /HPF White Blood Count 10.4 x10^3/uL (4.0-11.0) Red Blood Count 4.13 x10^6/uL (3.50-5.40) Hemoglobin 12.2 g/dL (12.0-15.5) Hematocrit 36.4 % (36.0-47.0) Mean Corpuscular Volume 88 fL (79-100) Mean Corpuscular Hemoglobin 30 pg (25-35) Mean Corpuscular Hemoglobin Concent 34 g/dL (31-37) Red Cell Distribution Width 13.4 % (11.5-14.5) Platelet Count 227 x10^3/uL (140-400) Neutrophils (%) (Auto) 73 % (31-73) Lymphocytes (%) (Auto) 16 % (24-48) Monocytes (%) (Auto) 8 % (0-9) Eosinophils (%) (Auto) 2 % (0-3) Basophils (%) (Auto) 1 % (0-3) Neutrophils # (Auto) 7.6 x10^3/uL (1.8-7.7) Lymphocytes # (Auto) 1.7 x10^3/uL (1.0-4.8) Monocytes # (Auto) 0.8 x10^3/uL (0.0-1.1) Eosinophils # (Auto) 0.2 x10^3/uL (0.0-0.7) Basophils # (Auto) 0.1 x10^3/uL (0.0-0.2) Prothrombin Time 13.9 SEC (11.7-14.0) Prothromb Time International Ratio 1.1 (0.8-1.1) Activated Partial Thromboplast Time 34 SEC (24-38) Sodium Level 144 mmol/L (136-145) Potassium Level 3.9 mmol/L (3.5-5.1) Chloride Level 105 mmol/L (98-107) Carbon Dioxide Level 32 mmol/L (21-32) Anion Gap 7 (6-14) Blood Urea Nitrogen 13 mg/dL (7-20) Creatinine 0.9 mg/dL (0.6-1.0) Estimated GFR (Cockcroft-Gault) 66.5 BUN/Creatinine Ratio 14 (6-20) Glucose Level 91 mg/dL (70-99) Lactic Acid Level 1.0 mmol/L (0.4-2.0) Calcium Level 8.7 mg/dL (8.5-10.1) Magnesium Level 1.8 mg/dL (1.8-2.4) Total Bilirubin 0.4 mg/dL (0.2-1.0) Aspartate Amino Transf (AST/SGOT) 140 U/L (15-37) Alanine Aminotransferase (ALT/SGPT) 157 U/L (14-59) Alkaline Phosphatase 162 U/L (46-116) Creatine Kinase 98 U/L (26-192) Creatine Kinase MB (Mass) 1.0 ng/mL (0.0-3.6) Creatine Kinase MB Relative Index 1.0 % (0-4) Troponin I Quantitative < 0.017 ng/mL (0.000-0.055) Total Protein 7.2 g/dL (6.4-8.2) Albumin 3.1 g/dL (3.4-5.0) Albumin/Globulin Ratio 0.8 (1.0-1.7) Lipase 568 U/L (73-393) VTE Prophylaxis Ordered VTE Prophylaxis Devices: Yes VTE Pharmacological Prophylaxi: Yes Assessment/Plan Assessment/Plan 1. Acute pancreatitis r/o pseudocyst - lipase 563, NPo, IVF, GI, non emergent mRI if needed but i dont thnk she needs it now,pain control - check LIPIDS, non DM non drinker 2. Morbid obesity BMI 46.4 3. WHeezy, seasonal allergies - solu, cough med, CXR 2 views, pulmo, will need OP PFTS 4. HTN, dyslipidmeia, hypothy - chronic stable 5,. HArd of hearing since - has amplifier PLAN: Med surg bed NPO, IVF,. lung meds P=ulmo and gI PAin control OK for other home meds with sips water, ok for ice chips Check lipids Needs to lose weight TONYA LORD MD Aug 09, 2019 09:27
[2019-08-09] MEDS: guaiFENesin DM 200MG/20MG 10 ML SYRUP PO SCH ×4 (09:29→22:10)
[2019-08-09 09:55] LABS: CHOLESTEROL/HDL RATIO 4.4
--- NOTE | 2019-08-09 09:59 | PDOC2 ---
GI CONSULT Reason For Consult: Intractable abd pain, elevated lipase, pseudocyst HPI: HPI: 49 y/o female who has been seen at in the past - most recently the wait in the ER was too long (10 hours) so she came here. Gives h/o LUQ pain wrapping around to back since 2002. Was without insurance for majority of time since then (except the past year) and had three hernia repairs during that time. Pain comes and goes but has been worse for 3 weeks. Denies precipitating events. Throbbing and cramping - better when "motionless" and worse w/ movement or after eating. Some decreased appetite and early satiety w/o weight loss. No n/v, diarrhea, constipation, or bleeding. Presumed h/o GERD on pantoprazole QD for awhile (started for pain and decreased appetite) - not sure if it helps. Normal lipase on 08/03, mildly elevated yesterday, worse today. AST, ALT, and Alk Phos mildly elevated today. On CT in ER on 08/02: multiple small pancreatic parenchyma calcifications consistent with chronic pancreatitis, heterogeneous structure along the anterior margin of the head of the pancreas with surrounding inflammatory stranding and peripheral calcification. Gives h/o pancreatic cyst w/ two previous biopsies (first at [facility] on the [place] and second on ) - reports benign findings. No previous pancreatitis diagnosis. Had EGD and colonoscopy a couple months ago w/ Dr. Grissom at - reportedly normal results except for hemorrhoids. S/p cholecystectomy ~20 years ago - did not have stones. No liver or PUD history (though says "gastritis" in high school). Normal liver on recent CT. No NSAIDs. 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 present during interview. Had parathyroidectomy a couple months ago and supposed to see a mobile home mechanic in January. Surgeon is Dr. Mendoza @ - says hernias/mesh are not causing current pain. Has had some wheezing - started on steroids and to see pulm. Lipid panel also ordered. PMH: PMH: HTN, hypothyroidism, osteoporosis, parathyroidectomy (two), uterine cancer, depression cholecystectomy, hysterectomy, hernia repairs - complicated w/ mesh displacement, hammer toe surgery, pancreas biopsy x 2 FH: Family History: Cancer (mother - unknown kind), Other (mother - pancreatitis) Social History: Smoke: No ALCOHOL: none Drugs: None ROS: GEN: Denies fevers, chills, sweats HEENT: Denies blurred vision, sore throat CV: Denies chest pain RESP: +wheezing GI: Per HPI : Denies hematuria, dysuria ENDO: Denies weight changes NEURO: Denies confusion, dizziness MSK: Denies weakness, joint pain/swelling SKIN: Denies jaundice, pruritus Vitals: Vitals: Vital Signs Date Time Temp Pulse Resp B/P (MAP) Pulse Ox O2 Delivery O2 Flow Rate FiO2 08/09/19 09:10 98 Room Air 08/09/19 09:04 2.0 08/09/19 08:44 70 121/82 08/09/19 07:00 97.7 14 97.7 Labs: Labs: Laboratory Tests Test 08/08/19 19:20 08/08/19 20:24 08/09/19 09:06 Urine Collection Type Unknown Urine Color Yellow Urine Clarity Clear Urine pH 8.0 Urine Specific [place] 1.015 Urine Protein Negative mg/dL (NEG-TRACE) Urine Glucose (UA) Negative mg/dL (NEG) Urine Ketones (Stick) Negative mg/dL (NEG) Urine Blood Negative (NEG) Urine Nitrite Negative (NEG) Urine Bilirubin Negative (NEG) Urine Urobilinogen Dipstick 0.2 mg/dL (0.2 mg/dL) Urine Leukocyte Esterase Negative (NEG) Urine RBC Occ /HPF (0-2) Urine WBC 1-4 /HPF (0-4) Urine Bacteria Moderate /HPF (0-FEW) Urine Mucus Mod /LPF Urine Yeast Present /HPF White Blood Count 10.4 x10^3/uL (4.0-11.0) Red Blood Count 4.13 x10^6/uL (3.50-5.40) Hemoglobin 12.2 g/dL (12.0-15.5) Hematocrit 36.4 % (36.0-47.0) Mean Corpuscular Volume 88 fL (79-100) Mean Corpuscular Hemoglobin 30 pg (25-35) Mean Corpuscular Hemoglobin Concent 34 g/dL (31-37) Red Cell Distribution Width 13.4 % (11.5-14.5) Platelet Count 227 x10^3/uL (140-400) Neutrophils (%) (Auto) 73 % (31-73) Lymphocytes (%) (Auto) 16 % (24-48) Monocytes (%) (Auto) 8 % (0-9) Eosinophils (%) (Auto) 2 % (0-3) Basophils (%) (Auto) 1 % (0-3) Neutrophils # (Auto) 7.6 x10^3/uL (1.8-7.7) Lymphocytes # (Auto) 1.7 x10^3/uL (1.0-4.8) Monocytes # (Auto) 0.8 x10^3/uL (0.0-1.1) Eosinophils # (Auto) 0.2 x10^3/uL (0.0-0.7) Basophils # (Auto) 0.1 x10^3/uL (0.0-0.2) Prothrombin Time 13.9 SEC (11.7-14.0) Prothromb Time International Ratio 1.1 (0.8-1.1) Activated Partial Thromboplast Time 34 SEC (24-38) Sodium Level 144 mmol/L (136-145) Potassium Level 3.9 mmol/L (3.5-5.1) Chloride Level 105 mmol/L (98-107) Carbon Dioxide Level 32 mmol/L (21-32) Anion Gap 7 (6-14) Blood Urea Nitrogen 13 mg/dL (7-20) Creatinine 0.9 mg/dL (0.6-1.0) Estimated GFR (Cockcroft-Gault) 66.5 BUN/Creatinine Ratio 14 (6-20) Glucose Level 91 mg/dL (70-99) Lactic Acid Level 1.0 mmol/L (0.4-2.0) Calcium Level 8.7 mg/dL (8.5-10.1) Magnesium Level 1.8 mg/dL (1.8-2.4) Total Bilirubin 0.4 mg/dL (0.2-1.0) Aspartate Amino Transf (AST/SGOT) 140 U/L (15-37) Alanine Aminotransferase (ALT/SGPT) 157 U/L (14-59) Alkaline Phosphatase 162 U/L (46-116) Creatine Kinase 98 U/L (26-192) Creatine Kinase MB (Mass) 1.0 ng/mL (0.0-3.6) Creatine Kinase MB Relative Index 1.0 % (0-4) Troponin I Quantitative < 0.017 ng/mL (0.000-0.055) Total Protein 7.2 g/dL (6.4-8.2) Albumin 3.1 g/dL (3.4-5.0) Albumin/Globulin Ratio 0.8 (1.0-1.7) Lipase 568 U/L (73-393) 1226 U/L (73-393) Triglycerides Level 90 mg/dL (0-150) Cholesterol Level 163 mg/dL (0-200) LDL Cholesterol, Calculated 108 mg/dL (0-100) VLDL Cholesterol, Calculated 18 mg/dL (0-40) Non-HDL Cholesterol Calculated 126 mg/dL (0-129) HDL Cholesterol 37 mg/dL (40-60) Cholesterol/HDL Ratio 4.4 Allergies: Coded Allergies: oxycodone (Verified Allergy, Intermediate, 08/08/19) erythromycin base (Verified Adverse Reaction, Intermediate, GI Upset , 08/08/19) Medications: Current Medications Medications (Trade) Dose Ordered Sig/Moraima Route PRN Reason Start Time Stop Time Status Last Admin Dose Admin Ondansetron HCl (Zofran) 4 mg 1X ONCE IV 08/08/19 20:30 08/08/19 20:31 DC 08/08/19 20:33 Famotidine (Pepcid Vial) 20 mg 1X ONCE IVP 08/08/19 20:30 08/08/19 20:31 DC 08/08/19 20:33 Ketorolac Tromethamine (Toradol 15mg Vial) 15 mg 1X ONCE IV 08/08/19 20:15 08/08/19 20:16 DC 08/08/19 20:33 Sodium Chloride 1,000 ml @ 1,000 mls/hr 1X ONCE IV 08/08/19 20:30 08/08/19 21:29 DC 08/08/19 20:33 Fluconazole (Diflucan) 200 mg 1X ONCE PO 08/08/19 21:00 08/08/19 21:01 DC 08/08/19 20:47 Fentanyl Citrate (Fentanyl 2ml Vial) 50 mcg 1X ONCE IV 08/08/19 22:00 08/08/19 22:01 DC 08/08/19 21:51 Fentanyl Citrate (Fentanyl 2ml Vial) 50 mcg PRN Q2HRS PRN IV SEVERE PAIN 7-10 08/08/19 21:45 08/09/19 08:29 Sodium Chloride 1,000 ml @ 100 mls/hr Q10H IV 08/09/19 08:00 08/09/19 08:29 Calcium/Vitamin D (Oscal D 500mg/ 200uts) 1 tab DAILY PO 08/09/19 09:00 08/09/19 08:44 Levothyroxine Sodium (Synthroid) 137 mcg DAILY06 PO 08/09/19 10:30 08/09/19 09:08 Lisinopril (Prinivil) 5 mg DAILY PO 08/09/19 09:00 08/09/19 08:44 Docusate Sodium (Colace) 100 mg DAILY PO 08/09/19 09:00 08/09/19 08:44 Venlafaxine HCl (Effexor) 50 mg TID PO 08/09/19 09:00 08/09/19 08:44 Albuterol/ Ipratropium (Duoneb) 3 ml 1X ONCE NEB 08/09/19 09:00 08/09/19 09:01 DC 08/09/19 09:08 Methylprednisolone Sodium Succinate (SOLU-Medrol 125MG VIAL) 125 mg 1X ONCE IV 08/09/19 09:00 08/09/19 09:01 DC 08/09/19 09:08 Guaifenesin (Robitussin Dm) 10 ml QID PO 08/09/19 09:30 08/09/19 09:29 Imaging: Imaging: CT A/P w/ PO & IV contrast 08/02/19 Abdomen Findings: No consolidation. Right lower lobe calcified granuloma. Multiple small pancreatic parenchyma calcifications consistent with chronic pa ncreatitis. Anterior along the anterior margin of the head of the pancreas there is a heterogeneous structure with surrounding inflammatory stranding measuring 3.5 x 2.2 x 3.1 cm. Portion of this structure demonstrates peripheral calcification. The liver, spleen, and bilateral adrenal glands are normal. Cholecystectomy. Symmetric renal enhancement. There is no focal renal mass. There is no hydronephrosis. The visualized loops of small bowel are normal. The visualized loops of large bowel are normal. There is no evidence of bowel obstruction. Appendix is normal. There is no free fluid. There is no mesenteric or retroperitoneal adenopathy. The abdominal aorta is normal in caliber. Pelvis Findings: Urinary bladder is normal. No pelvic free fluid. There is no pelvic or inguinal adenopathy. There is no acute bony abnormality. Wide neck ventral hernia containing large and small bowel without evidence of incarceration. IMPRESSION: Along the anterior margin of the pancreatic head is an indeterminate lesion measuring up to 3.5 cm with surrounding inflammatory stranding. This might represent acute on chronic pancreatitis, or possibly sequela of chronic pancreatitis such as calcified pseudocyst. Correlate with laboratory values. Further evaluation with nonemergent MRI should be considered, as a neoplastic process could have a similar appearance. PE: GEN: NAD HEENT: Atraumatic, PERRL LUNGS: +some wheezing, NC 2L HEART: RRR ABD: midline scar from previous hernia repairs, "sore all over" - worse from epigastrium to LUQ and around to left flank EXTREMITY: No edema SKIN: No rashes, no jaundice NEURO/PSYCH: A & O �3 A/P: A/P: Chronic abd pain - since 2002 - worse x 3 weeks ?h/o GERD, decreased appetite, early satiety - on PPI Elevated lipase and LFTs, abnormal pancreas imaging - no previous diagnosis of pancreatitis but has had 2 biopsies of pancreatic cyst CRC screen - colonoscopy this year @ S/p cholecystectomy H/o hernia repairs w/ mesh - sees surgeon at ?FH pancreatitis -- Will ask for records from previous pancreas biopsies and 'scopes. Agree w/ PPI. Lipase more elevated today w/ ongoing discomfort - can keep to sips of water and ice chips for now. ANA BANG Aug 09, 2019 09:59
[2019-08-09] MEDS: ACETAMINOPHEN 500 MG TABLET PO PRN ×2 (10:51→19:54)
[2019-08-09] MEDS: PANTOPRAZOLE 40 MG TABLET.DR. PO SCH (10:51)
[2019-08-09 11:00] VITALS: BP 133/72
[2019-08-09] MEDS: IPRATRPIUM/ALBUTEROL 0.5/2.5MG 3 ML NEBU. NEB SCH ×3 (12:08→19:44)
[2019-08-09] MEDS: methylPREDNISolone SOD SUCC PF 40 MG/ML VIAL. IV SCH ×2 (13:05→21:00)
[2019-08-09] MEDS ORDERED: methylPREDNISolone SOD SUCC PF 40 MG/ML VIAL. IV SCH (14:00)
--- NOTE | 2019-08-09 14:11 | CONS ---
DATE OF CONSULTATION: 08/09/2019 PULMONARY CONSULTATION ATTENDING PHYSICIAN: Dr. Miranda. REASON FOR CONSULTATION: Wheezing. HISTORY OF PRESENT ILLNESS: The patient is 49 years old who came into the hospital with complaint of epigastric pain and she has been evaluated for pancreatitis. I have been asked to see her for further evaluation of her wheezing. The patient has seasonal allergies. She says the wheezing is sometimes at nighttime and occasionally during the day as well and the wheezing is usually worse during the spring season. She does not smoke cigarettes. She has never had been formally diagnosed with asthma. She does not take any inhalers. Her chest x-ray did not reveal any infiltrates. I have been asked to see her for further evaluation. CT abdomen and pelvis on 08/02/19 did not reveal any parenchymal infiltrates in the bases. PAST MEDICAL HISTORY: Significant for hypertension and hyperlipidemia. SURGERIES: Hysterectomy and cholecystectomy. FAMILY HISTORY: Hypertension. SOCIAL HISTORY: Nonsmoker. ALLERGIES: ERYTHROMYCIN AND OXYCODONE. MEDICATIONS: All reviewed as listed in the MRAD. REVIEW OF SYSTEMS: Ten-point system obtained. Pertinent positives discussed in my history of present illness, otherwise noncontributory. All systems that were negative were reviewed as well. PHYSICAL EXAMINATION: VITAL SIGNS: Reviewed. Blood pressure 133/72, afebrile, pulse ox 98% on 2 liters. NECK: Supple. LUNGS: Clear now. CARDIOVASCULAR: With a regular rate. ABDOMEN: Soft, obese. EXTREMITIES: With no pitting edema. LABORATORY DATA: Reviewed. White cell count 10.4, hemoglobin 12.2, platelets normal. IMPRESSION: 1. Bronchospasm, likely related to mild reactive airway disease. She has seasonal allergies and usually symptoms flare up during the springtime more than rest of the year. At present, she does not have any postnasal drainage. She would benefit from steroid inhaler. 2. Acute pancreatitis. Workup per Gastroenterology and primary care. RECOMMENDATIONS: 1. Clinically much better. Continue to taper steroids. 2. Continue DuoNebs. 3. Add Pulmicort. 4. As an outpatient, she will benefit from Flovent inhaler. 5. We will follow along with you. Discussed with the patient's . BRANDAN TORRES MD DR: MARINO/ida JOB#: [id number] / [id number]
--- NOTE | 2019-08-09 14:40 | RAD ---
EXAM: PA and Lateral Views of the Chest DATE: 08/09/2019 10:31 AM INDICATION: Wheezing COMPARISON: No Prior FINDINGS: The heart is not enlarged. Mediastinal and hilar contours are normal. No focal parenchymal airspace opacity. Linear opacities left lung base likely scarring/atelectasis. No pleural effusion or pneumothorax. IMPRESSION: 1. No evidence for acute cardiopulmonary process. 2. Linear opacities left lung base likely scarring/atelectasis. Electronically signed by: Brain Cantu MD (08/09/2019 2:37 PM) [facility]
[2019-08-09 15:00] VITALS: BP 137/77
[2019-08-09] MEDS: traMADol 50 MG TABLET PO PRN ×2 (15:03→22:08)
[2019-08-09] MEDS: LIPASE/PROTEAS/AMYLAS 10/32/42 CAPSULE.DR. PO SCH (15:55)
[2019-08-09 19:00] VITALS: BP 133/74
[2019-08-09] MEDS: BUDESONIDE 0.5 MG/2 ML NEBU. NEB SCH (19:44)
[2019-08-09 22:47] VITALS: BP 118/74
[2019-08-10] VITALS (7 sets, daily range): BP systolic 113–126; BP diastolic 47–69
[2019-08-10] MEDS: ACETAMINOPHEN 500 MG TABLET PO PRN ×2 (01:59→12:33)
[2019-08-10] MEDS: IV NORMAL SALINE 1000ML BAG 1,000 ML IV SCH ×2 (04:29→14:00)
[2019-08-10] MEDS: LEVOTHYROXINE 137 MCG TABLET PO SCH (06:00)
[2019-08-10] MEDS: traMADol 50 MG TABLET PO PRN ×3 (06:04→20:46)
[2019-08-10] MEDS: BUDESONIDE 0.5 MG/2 ML NEBU. NEB SCH ×2 (07:41→19:27)
[2019-08-10] MEDS: IPRATRPIUM/ALBUTEROL 0.5/2.5MG 3 ML NEBU. NEB SCH ×4 (07:41→19:27)
[2019-08-10] MEDS: PANTOPRAZOLE 40 MG TABLET.DR. PO SCH (08:44)
[2019-08-10] MEDS: CALCIUM CARB/VIT D3 500/200 TABLET. PO SCH (08:44)
[2019-08-10] MEDS: LISINOPRIL 5 MG TABLET. PO SCH (08:44)
[2019-08-10] MEDS: DOCUSATE SODIUM 100 MG CAPSULE. PO SCH (08:44)
[2019-08-10] MEDS: VENLAFAXINE 50 MG TABLET. PO SCH ×3 (08:44→20:43)
[2019-08-10] MEDS: methylPREDNISolone SOD SUCC PF 40 MG/ML VIAL. IV SCH ×2 (08:45→10:45)
[2019-08-10] MEDS: guaiFENesin DM 200MG/20MG 10 ML SYRUP PO SCH ×4 (08:45→20:44)
[2019-08-10] MEDS: LIPASE/PROTEAS/AMYLAS 10/32/42 CAPSULE.DR. PO SCH ×3 (08:45→17:21)
--- NOTE | 2019-08-10 09:25 | PDOC ---
Subjective: Subjective: Feeling "rough." Abd pain might be slightly better - back pain is worse w/ deep breathing. Tolerating clears, not really interested in eating more. Belching, no flatus or stool. Says someone mentioned having an MRI yesterday - she had one at [facility] in 2013 and ideally would not repeat this. Objective: Objective: Reviewed paper chart - no records received from or [facility]. Vital Signs: Vital Signs Date Time Temp Pulse Resp B/P (MAP) Pulse Ox O2 Delivery O2 Flow Rate FiO2 08/10/19 08:45 48 124/67 08/10/19 07:49 94 Room Air 08/10/19 07:15 98.3 16 98.3 08/09/19 12:10 2.0 Imaging: CXR IMPRESSION: 1. No evidence for acute cardiopulmonary process. 2. Linear opacities left lung base likely scarring/atelectasis. PE: GEN: NAD - was asleep LUNGS: room air HEART: RRR ABD: pretty quiet, soft, less LUQ discomfort today NEURO/PSYCH: A & O �3 A/P: Chronic abd pain ?chronic pancreatitis (h/o benign pancreatic cyst), ?GERD -- Continue PPI and pancreatic enzymes. No outside records yet. Will review w/ Dr. Schuler. ANA BANG Aug 10, 2019 09:25
--- NOTE | 2019-08-10 09:38 | PDOC ---
PROGRESS NOTES Chief Complaint Chief Complaint 1. Acute idioapthic pancreatitis r/o pseudocyst -non drinker, Triglycerides normal, no GB dse 2. Morbid obesity BMI 46.4 3. WHeezy, seasonal allergies -better - flovent on dc, CXR NAD 4. HTN, hypothy - chronic stable 5,. HArd of hearing since - has amplifier History of Present Illness History of Present Illness Still epigastric pain radiating to back NO fevers LIapse up to 1226 from 563- on liq diet GI note reviewed, ? pseudocyst read on CT Ambulating, at bedside She non toxic appearing NO more wheezing! - flovent on dc per pulmo note PLAN: COnt IVF and liq diet COnt ambulating ad gilberto REcheck lipase tmr Dw TRial of pancreatic enzyme per gI recs - i put the order in if they are agreeable with my choice but can change as deemed appropriate Vitals Vitals Vital Signs Date Time Temp Pulse Resp B/P (MAP) Pulse Ox O2 Delivery O2 Flow Rate FiO2 08/10/19 08:45 48 124/67 08/10/19 07:49 94 Room Air 08/10/19 07:15 98.3 16 98.3 08/09/19 12:10 2.0 Physical Exam General: Alert, Oriented X3, Cooperative, No acute distress Heart: Regular rate, Normal S1, Normal S2 Lungs: Clear Abdomen: Normal bowel sounds, Soft, No tenderness, No hepatosplenomegaly, No masses Extremities: No clubbing, No cyanosis, No edema, Normal pulses, No tenderness/swelling Skin: No rashes, No breakdown, No significant lesion Review of Systems Review of Systems better cough, no nausea or emesis or fever, still epig pain and abd pain Assessment and Plan Assessmemt and Plan Problems Medical Problems: (1) Acute pancreatitis Status: Acute (2) Dyslipidemia Status: Chronic (3) Elevated LFTs Status: Acute (4) Elevated lipase Status: Acute (5) Failure of outpatient treatment Status: Acute (6) HTN (hypertension) Status: Chronic (7) Hypothyroidism Status: Chronic (8) Intractable abdominal pain Status: Acute (9) Yeast cystitis Status: Acute Comment Review of Relevant I have reviewed the following items kira (where applicable) has been applied. Labs Laboratory Tests Test 08/08/19 19:20 08/08/19 20:24 08/09/19 09:06 Urine Collection Type Unknown Urine Color Yellow Urine Clarity Clear Urine pH 8.0 Urine Specific [place] 1.015 Urine Protein Negative mg/dL (NEG-TRACE) Urine Glucose (UA) Negative mg/dL (NEG) Urine Ketones (Stick) Negative mg/dL (NEG) Urine Blood Negative (NEG) Urine Nitrite Negative (NEG) Urine Bilirubin Negative (NEG) Urine Urobilinogen Dipstick 0.2 mg/dL (0.2 mg/dL) Urine Leukocyte Esterase Negative (NEG) Urine RBC Occ /HPF (0-2) Urine WBC 1-4 /HPF (0-4) Urine Bacteria Moderate /HPF (0-FEW) Urine Mucus Mod /LPF Urine Yeast Present /HPF White Blood Count 10.4 x10^3/uL (4.0-11.0) Red Blood Count 4.13 x10^6/uL (3.50-5.40) Hemoglobin 12.2 g/dL (12.0-15.5) Hematocrit 36.4 % (36.0-47.0) Mean Corpuscular Volume 88 fL (79-100) Mean Corpuscular Hemoglobin 30 pg (25-35) Mean Corpuscular Hemoglobin Concent 34 g/dL (31-37) Red Cell Distribution Width 13.4 % (11.5-14.5) Platelet Count 227 x10^3/uL (140-400) Neutrophils (%) (Auto) 73 % (31-73) Lymphocytes (%) (Auto) 16 % (24-48) Monocytes (%) (Auto) 8 % (0-9) Eosinophils (%) (Auto) 2 % (0-3) Basophils (%) (Auto) 1 % (0-3) Neutrophils # (Auto) 7.6 x10^3/uL (1.8-7.7) Lymphocytes # (Auto) 1.7 x10^3/uL (1.0-4.8) Monocytes # (Auto) 0.8 x10^3/uL (0.0-1.1) Eosinophils # (Auto) 0.2 x10^3/uL (0.0-0.7) Basophils # (Auto) 0.1 x10^3/uL (0.0-0.2) Prothrombin Time 13.9 SEC (11.7-14.0) Prothromb Time International Ratio 1.1 (0.8-1.1) Activated Partial Thromboplast Time 34 SEC (24-38) Sodium Level 144 mmol/L (136-145) Potassium Level 3.9 mmol/L (3.5-5.1) Chloride Level 105 mmol/L (98-107) Carbon Dioxide Level 32 mmol/L (21-32) Anion Gap 7 (6-14) Blood Urea Nitrogen 13 mg/dL (7-20) Creatinine 0.9 mg/dL (0.6-1.0) Estimated GFR (Cockcroft-Gault) 66.5 BUN/Creatinine Ratio 14 (6-20) Glucose Level 91 mg/dL (70-99) Lactic Acid Level 1.0 mmol/L (0.4-2.0) Calcium Level 8.7 mg/dL (8.5-10.1) Magnesium Level 1.8 mg/dL (1.8-2.4) Total Bilirubin 0.4 mg/dL (0.2-1.0) Aspartate Amino Transf (AST/SGOT) 140 U/L (15-37) Alanine Aminotransferase (ALT/SGPT) 157 U/L (14-59) Alkaline Phosphatase 162 U/L (46-116) Creatine Kinase 98 U/L (26-192) Creatine Kinase MB (Mass) 1.0 ng/mL (0.0-3.6) Creatine Kinase MB Relative Index 1.0 % (0-4) Troponin I Quantitative < 0.017 ng/mL (0.000-0.055) Total Protein 7.2 g/dL (6.4-8.2) Albumin 3.1 g/dL (3.4-5.0) Albumin/Globulin Ratio 0.8 (1.0-1.7) Lipase 568 U/L (73-393) 1226 U/L (73-393) Triglycerides Level 90 mg/dL (0-150) Cholesterol Level 163 mg/dL (0-200) LDL Cholesterol, Calculated 108 mg/dL (0-100) VLDL Cholesterol, Calculated 18 mg/dL (0-40) Non-HDL Cholesterol Calculated 126 mg/dL (0-129) HDL Cholesterol 37 mg/dL (40-60) Cholesterol/HDL Ratio 4.4 Medications Current Medications Ondansetron HCl (Zofran) 4 mg 1X ONCE IV Last administered on 08/08/19 20:33; Start 08/08/19 at 20:30; Stop 08/08/19 at 20:31; Status DC Famotidine (Pepcid Vial) 20 mg 1X ONCE IVP Last administered on 08/08/19at 20:33; Start 08/08/19 at 20:30; Stop 08/08/19 at 20:31; Status DC Ketorolac Tromethamine (Toradol 15mg Vial) 15 mg 1X ONCE IV Last administered on 08/08/19 20:33; Start 08/08/19 at 20:15; Stop 08/08/19 at 20:16; Status DC Sodium Chloride 1,000 ml @ 1,000 mls/hr 1X ONCE IV Last administered on 08/08/19 20:33; Start 08/08/19 at 20:30; Stop 08/08/19 at 21:29; Status DC Fluconazole (Diflucan) 200 mg 1X ONCE PO Last administered on 08/08/19at 20:47; Start 08/08/19 at 21:00; Stop 08/08/19 at 21:01; Status DC Fentanyl Citrate (Fentanyl 2ml Vial) 50 mcg 1X ONCE IV Last administered on 08/08/19at 21:51; Start 08/08/19 at 22:00; Stop 08/08/19 at 22:01; Status DC Ondansetron HCl (Zofran) 4 mg PRN Q8HRS PRN IV NAUSEA/VOMITING 1ST CHOICE; Start 08/08/19 at 21:45; Stop 08/09/19 at 08:01; Status DC Fentanyl Citrate (Fentanyl 2ml Vial) 50 mcg PRN Q2HRS PRN IV SEVERE PAIN 7-10 Last administered on 08/09/19at 08:29; Start 08/08/19 at 21:45 Sodium Chloride 1,000 ml @ 100 mls/hr Q10H IV Last administered on 08/10/19at 04:29; Start 08/09/19 at 08:00 Ondansetron HCl (Zofran) 4 mg PRN Q6HRS PRN IV NAUSEA/VOMITING 1ST CHOICE; Start 08/09/19 at 08:00; Stop 08/10/19 at 07:59; Status DC Tramadol HCl (Ultram) 50 mg PRN Q6HRS PRN PO MILD TO MODERATE PAIN Last administered on 08/10/19 06:04; Start 08/09/19 at 08:00 Acetaminophen (Tylenol) 500 mg PRN Q6HRS PRN PO MILD PAIN 1-3 Last administered on 08/10/19at 01:59; Start 08/09/19 at 08:00 Calcium/Vitamin D (Oscal D 500mg/ 200uts) 1 tab DAILY PO Last administered on 08/10/19 08:45; Start 08/09/19 at 09:00 Levothyroxine Sodium (Synthroid) 137 mcg DAILY06 PO Last administered on 08/10/19 06:00; Start 08/09/19 at 10:30 Lisinopril (Prinivil) 5 mg DAILY PO Last administered on 08/10/19 08:45; Start 08/09/19 at 09:00 Docusate Sodium (Colace) 100 mg DAILY PO Last administered on 08/10/19 08:45; Start 08/09/19 at 09:00 Non-Formulary Medication (Gluc/Servando-Msm#2/ C/D3/Fran/Born (Byozysemik-Eupnvjdyohg-Ufx Tab)) 1 tab-cap DAILY PO ; Start 08/09/19 at 09:00; Status UNV Pantoprazole Sodium (Protonix) 40 mg DAILYAC PO Last administered on 08/10/19at 08:45; Start 08/09/19 at 11:30 Venlafaxine HCl (Effexor) 50 mg TID PO Last administered on 08/10/19 08:45; Start 08/09/19 at 09:00 Albuterol/ Ipratropium (Duoneb) 3 ml RTQID NEB Last administered on 08/10/19at 07:41; Start 08/09/19 at 12:00 Albuterol/ Ipratropium (Duoneb) 3 ml 1X ONCE NEB Last administered on 08/09/19 09:08; Start 08/09/19 at 09:00; Stop 08/09/19 at 09:01; Status DC Methylprednisolone Sodium Succinate (SOLU-Medrol 125MG VIAL) 125 mg 1X ONCE IV Last administered on 08/09/19at 09:08; Start 08/09/19 at 09:00; Stop 08/09/19 at 09:01; Status DC Methylprednisolone Sodium Succinate (SOLU-Medrol 40MG VIAL) 40 mg Q8HRS IV ; Start 08/09/19 at 14:00; Stop 08/09/19 at 13:01; Status DC Guaifenesin (Robitussin Dm) 10 ml PRN Q6HRS PRN PO COUGH; Start 08/09/19 at 09:00; Stop 08/09/19 at 09:21; Status DC Guaifenesin (Robitussin Dm) 10 ml QID PO Last administered on 08/10/19at 08:45; Start 08/09/19 at 09:30 Albuterol Sulfate (Ventolin Neb Soln) 2.5 mg PRN Q4HRS PRN NEB SHORTNESS OF BREATH; Start 08/09/19 at 09:30 Methylprednisolone Sodium Succinate (SOLU-Medrol 40MG VIAL) 40 mg BID IV Last administered on 08/10/19at 08:45; Start 08/09/19 at 13:15 Budesonide (Pulmicort) 0.5 mg RTBID NEB Last administered on 08/10/19at 07:41; Start 08/09/19 at 20:00 Amylase/Lipase/ Protease (Zenpep 10,000) 2 cap TIDWMEALS PO Last administered on 08/10/19at 08:45; Start 08/09/19 at 17:00 Amylase/Lipase/ Protease (Zenpep 5,000) 2 cap TIDWMEALS PO ; Start 08/10/19 at 12:00; Status UNV Active Scripts Active Reported Nglvdsppfl-Teilmwvjfsi-Une Tab (Gluc/Servando-Msm#2/C/D3/Fran/Born) 1 Each Tablet 1 Tab-Cap PO DAILY Effexor Xr (Venlafaxine Hcl) 150 Mg Cap.er.24h 1 Cap PO DAILY Levothyroxine Sodium 137 Mcg Tablet 1 Tab PO DAILY Lisinopril 5 Mg Tablet 1 Tab PO DAILY Protonix (Pantoprazole Sodium) 20 Mg Tablet.dr 1 Tab PO DAILY Stool Softener (Docusate Sodium) 50 Mg Capsule 50 Mg PO DAILY Tylenol Extra Strength (Acetaminophen) 500 Mg Tablet 500 Mg PO Q6HRS PRN Calcium 500 + Vit D 200 Caplet (Calcium Carbonate/Vitamin D3) 1 Each Tablet 1 Each PO DAILY Vitals/I & O Vital Sign - Last 24 Hours 08/09/19 08/09/19 08/09/19 08/09/19 11:00 12:10 15:00 15:03 Temp 97.9 97.4 97.9 97.4 Pulse 64 80 Resp 14 14 B/P (MAP) 133/72 (92) 137/77 (97) Pulse Ox 96 98 92 98 O2 Delivery Nasal Cannula Nasal Cannula Room Air Room Air O2 Flow Rate 2.0 2.0 08/09/19 08/09/19 08/09/19 08/09/19 15:55 16:13 19:00 19:46 Temp 98.3 98.3 Pulse 74 Resp 14 B/P (MAP) 133/74 (93) Pulse Ox 98 98 98 93 O2 Delivery Room Air Room Air Room Air Room Air 08/09/19 08/09/19 08/09/19 08/09/19 19:50 22:11 22:47 23:20 Temp 97.6 97.6 Pulse 70 Resp 20 18 20 B/P (MAP) 118/74 (89) Pulse Ox 94 O2 Delivery Room Air Room Air Room Air Room Air 08/10/19 08/10/19 08/10/19 08/10/19 03:00 06:04 07:15 07:26 Temp 97.8 98.3 97.8 98.3 Pulse 73 48 Resp 18 20 16 B/P (MAP) 113/63 (80) 124/67 (86) Pulse Ox 91 95 O2 Delivery Room Air Room Air Room Air Room Air 08/10/19 08/10/19 08/10/19 07:31 07:49 08:45 Pulse 48 B/P (MAP) 124/67 Pulse Ox 94 94 O2 Delivery Room Air Room Air Intake and Output 08/09/19 08/09/19 08/10/19 14:59 22:59 06:59 Intake Total 50 ml 0 ml 2400 ml Balance 50 ml 0 ml 2400 ml TONYA LORD MD Aug 10, 2019 09:38
--- NOTE | 2019-08-10 10:45 | PDOC ---
PULMONARY PROGRESS NOTES Subjective no wheezing, or soa Vitals Vital Signs Date Time Temp Pulse Resp B/P (MAP) Pulse Ox O2 Delivery O2 Flow Rate FiO2 08/10/19 08:45 48 124/67 08/10/19 07:49 94 Room Air 08/10/19 07:15 98.3 16 98.3 08/09/19 12:10 2.0 General: Alert, No acute distress Lungs: Clear Cardiovascular: S1, S2 Abdomen: Soft Neuro Exam: Alert Extremities: No Edema Skin: Warm Labs Laboratory Tests Test 08/08/19 19:20 08/08/19 20:24 08/09/19 09:06 Urine Collection Type Unknown Urine Color Yellow Urine Clarity Clear Urine pH 8.0 Urine Specific [place] 1.015 Urine Protein Negative mg/dL (NEG-TRACE) Urine Glucose (UA) Negative mg/dL (NEG) Urine Ketones (Stick) Negative mg/dL (NEG) Urine Blood Negative (NEG) Urine Nitrite Negative (NEG) Urine Bilirubin Negative (NEG) Urine Urobilinogen Dipstick 0.2 mg/dL (0.2 mg/dL) Urine Leukocyte Esterase Negative (NEG) Urine RBC Occ /HPF (0-2) Urine WBC 1-4 /HPF (0-4) Urine Bacteria Moderate /HPF (0-FEW) Urine Mucus Mod /LPF Urine Yeast Present /HPF White Blood Count 10.4 x10^3/uL (4.0-11.0) Red Blood Count 4.13 x10^6/uL (3.50-5.40) Hemoglobin 12.2 g/dL (12.0-15.5) Hematocrit 36.4 % (36.0-47.0) Mean Corpuscular Volume 88 fL (79-100) Mean Corpuscular Hemoglobin 30 pg (25-35) Mean Corpuscular Hemoglobin Concent 34 g/dL (31-37) Red Cell Distribution Width 13.4 % (11.5-14.5) Platelet Count 227 x10^3/uL (140-400) Neutrophils (%) (Auto) 73 % (31-73) Lymphocytes (%) (Auto) 16 % (24-48) Monocytes (%) (Auto) 8 % (0-9) Eosinophils (%) (Auto) 2 % (0-3) Basophils (%) (Auto) 1 % (0-3) Neutrophils # (Auto) 7.6 x10^3/uL (1.8-7.7) Lymphocytes # (Auto) 1.7 x10^3/uL (1.0-4.8) Monocytes # (Auto) 0.8 x10^3/uL (0.0-1.1) Eosinophils # (Auto) 0.2 x10^3/uL (0.0-0.7) Basophils # (Auto) 0.1 x10^3/uL (0.0-0.2) Prothrombin Time 13.9 SEC (11.7-14.0) Prothromb Time International Ratio 1.1 (0.8-1.1) Activated Partial Thromboplast Time 34 SEC (24-38) Sodium Level 144 mmol/L (136-145) Potassium Level 3.9 mmol/L (3.5-5.1) Chloride Level 105 mmol/L (98-107) Carbon Dioxide Level 32 mmol/L (21-32) Anion Gap 7 (6-14) Blood Urea Nitrogen 13 mg/dL (7-20) Creatinine 0.9 mg/dL (0.6-1.0) Estimated GFR (Cockcroft-Gault) 66.5 BUN/Creatinine Ratio 14 (6-20) Glucose Level 91 mg/dL (70-99) Lactic Acid Level 1.0 mmol/L (0.4-2.0) Calcium Level 8.7 mg/dL (8.5-10.1) Magnesium Level 1.8 mg/dL (1.8-2.4) Total Bilirubin 0.4 mg/dL (0.2-1.0) Aspartate Amino Transf (AST/SGOT) 140 U/L (15-37) Alanine Aminotransferase (ALT/SGPT) 157 U/L (14-59) Alkaline Phosphatase 162 U/L (46-116) Creatine Kinase 98 U/L (26-192) Creatine Kinase MB (Mass) 1.0 ng/mL (0.0-3.6) Creatine Kinase MB Relative Index 1.0 % (0-4) Troponin I Quantitative < 0.017 ng/mL (0.000-0.055) Total Protein 7.2 g/dL (6.4-8.2) Albumin 3.1 g/dL (3.4-5.0) Albumin/Globulin Ratio 0.8 (1.0-1.7) Lipase 568 U/L (73-393) 1226 U/L (73-393) Triglycerides Level 90 mg/dL (0-150) Cholesterol Level 163 mg/dL (0-200) LDL Cholesterol, Calculated 108 mg/dL (0-100) VLDL Cholesterol, Calculated 18 mg/dL (0-40) Non-HDL Cholesterol Calculated 126 mg/dL (0-129) HDL Cholesterol 37 mg/dL (40-60) Cholesterol/HDL Ratio 4.4 Medications Active Scripts Medications Dose Route/Sig Max Daily Dose Days Date Category Rilqzurmws-Wgltnqyaacs-Pkh Tab (Gluc/Servando-Msm#2/C/D3/Fran/Born) 1 Each Tablet 1 Tab-Cap PO DAILY 08/09/19 Reported Effexor Xr (Venlafaxine Hcl) 150 Mg Cap.er.24h 1 Cap PO DAILY 08/09/19 Reported Levothyroxine Sodium 137 Mcg Tablet 1 Tab PO DAILY 08/09/19 Reported Lisinopril 5 Mg Tablet 1 Tab PO DAILY 08/09/19 Reported Protonix (Pantoprazole Sodium) 20 Mg Tablet.dr 1 Tab PO DAILY 08/09/19 Reported Stool Softener (Docusate Sodium) 50 Mg Capsule 50 Mg PO DAILY 08/09/19 Reported Tylenol Extra Strength (Acetaminophen) 500 Mg Tablet 500 Mg PO Q6HRS PRN 08/09/19 Reported Calcium 500 + Vit D 200 Caplet (Calcium Carbonate/Vitamin D3) 1 Each Tablet 1 Each PO DAILY 08/09/19 Reported Impression . 1. Bronchospasm, likely related to mild reactive airway disease. She has seasonal allergies and usually symptoms flare up during the springtime more than rest of the year. At present, she does not have any postnasal drainage. She would benefit from steroid inhaler a sOP. wheezing resolved on pulmicort 2. Acute pancreatitis. Workup per Gastroenterology and primary care. Plan . 1. Clinically much better. Continue to taper steroids. 2. Continue DuoNebs. 3. Pulmicort. 4. As an outpatient, she will benefit from Flovent inhaler. 5. We will follow along with you as needed.. Discussed with the patient's . BRANDAN TORRES MD Aug 10, 2019 10:45
[2019-08-10] MEDS: fentaNYL PF VIAL 100 MCG/2 ML VIAL IV PRN ×2 (14:42→22:09)
[2019-08-11] MEDS: IV NORMAL SALINE 1000ML BAG 1,000 ML IV SCH ×3 (00:43→20:00)
[2019-08-11 02:38] VITALS: BP 129/65
[2019-08-11] MEDS: fentaNYL PF VIAL 100 MCG/2 ML VIAL IV PRN ×3 (04:56→23:38)
[2019-08-11] MEDS: LEVOTHYROXINE 137 MCG TABLET PO SCH (05:55)
[2019-08-11 07:00] VITALS: BP 166/83
[2019-08-11] MEDS: BUDESONIDE 0.5 MG/2 ML NEBU. NEB SCH ×2 (08:46→19:59)
[2019-08-11] MEDS: IPRATRPIUM/ALBUTEROL 0.5/2.5MG 3 ML NEBU. NEB SCH ×4 (08:46→19:59)
[2019-08-11] MEDS: CALCIUM CARB/VIT D3 500/200 TABLET. PO SCH (09:05)
[2019-08-11] MEDS: VENLAFAXINE 50 MG TABLET. PO SCH ×3 (09:05→20:50)
[2019-08-11] MEDS: PANTOPRAZOLE 40 MG TABLET.DR. PO SCH (09:05)
[2019-08-11] MEDS: LISINOPRIL 5 MG TABLET. PO SCH (09:05)
[2019-08-11] MEDS: DOCUSATE SODIUM 100 MG CAPSULE. PO SCH (09:05)
[2019-08-11] MEDS: LIPASE/PROTEAS/AMYLAS 10/32/42 CAPSULE.DR. PO SCH ×3 (09:06→17:39)
[2019-08-11] MEDS: guaiFENesin DM 200MG/20MG 10 ML SYRUP PO SCH ×4 (09:06→20:50)
--- NOTE | 2019-08-11 09:28 | PDOC ---
PROGRESS NOTES Chief Complaint Chief Complaint 1. Acute idioapthic pancreatitis r/o pseudocyst -non drinker, Triglycerides normal, no GB dse 2. Morbid obesity BMI 46.4 3. WHeezy, seasonal allergies -better - flovent on dc, CXR NAD 4. HTN, hypothy - chronic stable 5,. HArd of hearing since - has amplifier History of Present Illness History of Present Illness Still epigastric pain radiating to back BUt ,lipase down to 466 NO fevers GI note reviewed, waiting for recirds [facility] re recent CT - i followed up with RN and corporation secretary ( khushboo signed a waiver to release records) Ambulating, at bedside She non toxic appearing but claims food made pain worse? NO more wheezing! - flovent on dc per pulmo note dry intertriginous areas - but might benefit from a shower? PLAN: COnt IVF - might need to back down NPO - will wait for gI, she is agreeable, whatever need to be done (first episode pancreatitis known, non etoh, normal TG and non dm) COnt ambulating ad gilberto REcheck lipase tmr/labs Dw TRial of pancreatic enzyme per gI recs - i put the order in if they are agr eeable with my choice but can change as deemed appropriate ff up [facility] ct scan Vitals Vitals Vital Signs Date Time Temp Pulse Resp B/P (MAP) Pulse Ox O2 Delivery O2 Flow Rate FiO2 08/11/19 09:06 57 166/83 08/11/19 08:48 95 Room Air 08/11/19 07:00 97.6 16 97.6 08/11/19 02:38 2.0 Physical Exam General: Alert, Oriented X3, Cooperative, No acute distress Heart: Regular rate, Normal S1, Normal S2 Lungs: Clear Abdomen: Normal bowel sounds, Soft, No tenderness, No hepatosplenomegaly, No masses Extremities: No clubbing, No cyanosis, No edema, Normal pulses, No tenderness/swelling Skin: No rashes, No breakdown, No significant lesion Labs LABS Laboratory Tests Test 08/11/19 05:55 Lipase 488 U/L (73-393) Review of Systems Review of Systems abd pain, some intermittent nausea, but no emesis, fevers, dry intertriginous areas Assessment and Plan Assessmemt and Plan Problems Medical Problems: (1) Acute pancreatitis Status: Acute (2) Dyslipidemia Status: Chronic (3) Elevated LFTs Status: Acute (4) Elevated lipase Status: Acute (5) Failure of outpatient treatment Status: Acute (6) HTN (hypertension) Status: Chronic (7) Hypothyroidism Status: Chronic (8) Intractable abdominal pain Status: Acute (9) Yeast cystitis Status: Acute Comment Review of Relevant I have reviewed the following items kira (where applicable) has been applied. Labs Laboratory Tests Test 08/11/19 05:55 Lipase 488 U/L (73-393) Laboratory Tests Test 08/11/19 05:55 Lipase 488 U/L (73-393) Microbiology 08/08/19 Urine Culture - Final, Complete 08/08/19 Urine Culture Result 1 (LEIGHTON) - Final, Complete Medications Current Medications Ondansetron HCl (Zofran) 4 mg 1X ONCE IV Last administered on 08/08/19at 20:33; Start 08/08/19 at 20:30; Stop 08/08/19 at 20:31; Status DC Famotidine (Pepcid Vial) 20 mg 1X ONCE IVP Last administered on 08/08/19at 20:33; Start 08/08/19 at 20:30; Stop 08/08/19 at 20:31; Status DC Ketorolac Tromethamine (Toradol 15mg Vial) 15 mg 1X ONCE IV Last administered on 08/08/19at 20:33; Start 08/08/19 at 20:15; Stop 08/08/19 at 20:16; Status DC Sodium Chloride 1,000 ml @ 1,000 mls/hr 1X ONCE IV Last administered on 08/08/19at 20:33; Start 08/08/19 at 20:30; Stop 08/08/19 at 21:29; Status DC Fluconazole (Diflucan) 200 mg 1X ONCE PO Last administered on 08/08/19at 20:47; Start 08/08/19 at 21:00; Stop 08/08/19 at 21:01; Status DC Fentanyl Citrate (Fentanyl 2ml Vial) 50 mcg 1X ONCE IV Last administered on 08/08/19at 21:51; Start 08/08/19 at 22:00; Stop 08/08/19 at 22:01; Status DC Ondansetron HCl (Zofran) 4 mg PRN Q8HRS PRN IV NAUSEA/VOMITING 1ST CHOICE; Start 08/08/19 at 21:45; Stop 08/09/19 at 08:01; Status DC Fentanyl Citrate (Fentanyl 2ml Vial) 50 mcg PRN Q2HRS PRN IV SEVERE PAIN 7-10 Last administered on 08/11/19at 04:56; Start 08/08/19 at 21:45 Sodium Chloride 1,000 ml @ 100 mls/hr Q10H IV Last administered on 08/11/19at 00:43; Start 08/09/19 at 08:00 Ondansetron HCl (Zofran) 4 mg PRN Q6HRS PRN IV NAUSEA/VOMITING 1ST CHOICE; Start 08/09/19 at 08:00; Stop 08/10/19 at 07:59; Status DC Tramadol HCl (Ultram) 50 mg PRN Q6HRS PRN PO MILD TO MODERATE PAIN Last administered on 08/10/19at 20:46; Start 08/09/19 at 08:00 Acetaminophen (Tylenol) 500 mg PRN Q6HRS PRN PO MILD PAIN 1-3 Last administered on 08/10/19 12:33; Start 08/09/19 at 08:00 Calcium/Vitamin D (Oscal D 500mg/ 200uts) 1 tab DAILY PO Last administered on 08/11/19 09:06; Start 08/09/19 at 09:00 Levothyroxine Sodium (Synthroid) 137 mcg DAILY06 PO Last administered on 08/11/19 05:56; Start 08/09/19 at 10:30 Lisinopril (Prinivil) 5 mg DAILY PO Last administered on 08/11/19 09:06; Start 08/09/19 at 09:00 Docusate Sodium (Colace) 100 mg DAILY PO Last administered on 08/11/19 09:06; Start 08/09/19 at 09:00 Non-Formulary Medication (Gluc/Servando-Msm#2/ C/D3/Fran/Born (Mpbsujapfx-Lhwpmypajtn-Jff Tab)) 1 tab-cap DAILY PO ; Start 08/09/19 at 09:00; Status UNV Pantoprazole Sodium (Protonix) 40 mg DAILYAC PO Last administered on 08/11/19 09:06; Start 08/09/19 at 11:30 Venlafaxine HCl (Effexor) 50 mg TID PO Last administered on 9/18/19at 09:06; Start 08/09/19 at 09:00 Albuterol/ Ipratropium (Duoneb) 3 ml RTQID NEB Last administered on 08/11/19at 08:46; Start 08/09/19 at 12:00 Albuterol/ Ipratropium (Duoneb) 3 ml 1X ONCE NEB Last administered on 08/09/19at 09:08; Start 08/09/19 at 09:00; Stop 08/09/19 at 09:01; Status DC Methylprednisolone Sodium Succinate (SOLU-Medrol 125MG VIAL) 125 mg 1X ONCE IV Last administered on 08/09/19at 09:08; Start 08/09/19 at 09:00; Stop 08/09/19 at 09:01; Status DC Methylprednisolone Sodium Succinate (SOLU-Medrol 40MG VIAL) 40 mg Q8HRS IV ; Start 08/09/19 at 14:00; Stop 08/09/19 at 13:01; Status DC Guaifenesin (Robitussin Dm) 10 ml PRN Q6HRS PRN PO COUGH; Start 08/09/19 at 09:00; Stop 08/09/19 at 09:21; Status DC Guaifenesin (Robitussin Dm) 10 ml QID PO Last administered on 08/11/19at 09:06; Start 08/09/19 at 09:30 Albuterol Sulfate (Ventolin Neb Soln) 2.5 mg PRN Q4HRS PRN NEB SHORTNESS OF BREATH; Start 08/09/19 at 09:30 Methylprednisolone Sodium Succinate (SOLU-Medrol 40MG VIAL) 40 mg BID IV Last administered on 08/10/19at 08:45; Start 08/09/19 at 13:15; Stop 08/10/19 at 10:47; Status DC Budesonide (Pulmicort) 0.5 mg RTBID NEB Last administered on 08/11/19at 08:46; Start 08/09/19 at 20:00 Amylase/Lipase/ Protease (Zenpep 10,000) 2 cap TIDWMEALS PO Last administered on 08/11/19at 09:06; Start 08/09/19 at 17:00 Amylase/Lipase/ Protease (Zenpep 5,000) 2 cap TIDWMEALS PO ; Start 08/10/19 at 12:00; Status UNV Methylprednisolone Sodium Succinate (SOLU-Medrol 40MG VIAL) 40 mg QD IV ; Start 08/10/19 at 10:45 Active Scripts Active Reported Azomtravyk-Tgotugibijw-Beo Tab (Gluc/Servando-Msm#2/C/D3/Fran/Born) 1 Each Tablet 1 Tab-Cap PO DAILY Effexor Xr (Venlafaxine Hcl) 150 Mg Cap.er.24h 1 Cap PO DAILY Levothyroxine Sodium 137 Mcg Tablet 1 Tab PO DAILY Lisinopril 5 Mg Tablet 1 Tab PO DAILY Protonix (Pantoprazole Sodium) 20 Mg Tablet.dr 1 Tab PO DAILY Stool Softener (Docusate Sodium) 50 Mg Capsule 50 Mg PO DAILY Tylenol Extra Strength (Acetaminophen) 500 Mg Tablet 500 Mg PO Q6HRS PRN Calcium 500 + Vit D 200 Caplet (Calcium Carbonate/Vitamin D3) 1 Each Tablet 1 Each PO DAILY Vitals/I & O Vital Sign - Last 24 Hours 08/10/19 08/10/19 08/10/19 08/10/19 11:17 11:24 12:33 14:29 Temp 97.8 97.8 Pulse 71 Resp 18 B/P (MAP) 118/55 (76) Pulse Ox 96 O2 Delivery Room Air Room Air Room Air Room Air 08/10/19 08/10/19 08/10/19 08/10/19 14:46 15:04 15:36 16:19 Temp 97.4 97.4 Pulse 69 Resp 20 B/P (MAP) 124/69 (87) Pulse Ox 96 O2 Delivery Room Air Room Air Room Air Room Air 08/10/19 08/10/19 08/10/19 08/10/19 17:45 19:00 19:27 19:35 Temp 97.5 98.4 97.5 98.4 Pulse 69 70 Resp 20 18 B/P (MAP) 124/69 (87) 124/47 (72) Pulse Ox 96 90 95 O2 Delivery Room Air Room Air Room Air Room Air O2 Flow Rate 2.0 08/10/19 08/10/19 08/10/19 08/10/19 20:46 22:09 22:13 22:44 Resp 20 20 20 20 O2 Delivery Room Air Room Air Room Air 08/10/19 08/11/19 08/11/19 08/11/19 22:56 02:38 04:56 06:05 Temp 98.4 98.2 98.4 98.2 Pulse 63 56 Resp 18 18 20 20 B/P (MAP) 126/63 (84) 129/65 (86) Pulse Ox 94 100 O2 Delivery Room Air Room Air Room Air O2 Flow Rate 2.0 2.0 08/11/19 08/11/19 08/11/19 07:00 08:48 09:06 Temp 97.6 97.6 Pulse 57 57 Resp 16 B/P (MAP) 166/83 (110) 166/83 Pulse Ox 96 95 O2 Delivery Room Air Room Air Intake and Output 08/10/19 08/10/19 08/11/19 15:00 23:00 07:00 Intake Total 960 ml 2400 ml Balance 960 ml 2400 ml TNOYA LORD MD Aug 11, 2019 09:28
[2019-08-11 11:00] VITALS: BP 147/64
--- NOTE | 2019-08-11 11:36 | PDOC ---
PULMONARY PROGRESS NOTES Subjective no wheezing, or soa Vitals Vital Signs Date Time Temp Pulse Resp B/P (MAP) Pulse Ox O2 Delivery O2 Flow Rate FiO2 08/11/19 09:06 57 166/83 08/11/19 08:48 95 Room Air 08/11/19 07:00 97.6 16 97.6 08/11/19 02:38 2.0 General: Alert, No acute distress Lungs: Clear Cardiovascular: S1, S2 Abdomen: Soft Neuro Exam: Alert Extremities: No Edema Skin: Warm Labs Laboratory Tests Test 08/11/19 05:55 Lipase 488 U/L (73-393) Laboratory Tests Test 08/11/19 05:55 Lipase 488 U/L (73-393) Medications Active Scripts Medications Dose Route/Sig Max Daily Dose Days Date Category Bqxaxdvzev-Dkubgoiieju-Xmk Tab (Gluc/Servando-Msm#2/C/D3/Fran/Born) 1 Each Tablet 1 Tab-Cap PO DAILY 08/09/19 Reported Effexor Xr (Venlafaxine Hcl) 150 Mg Cap.er.24h 1 Cap PO DAILY 08/09/19 Reported Levothyroxine Sodium 137 Mcg Tablet 1 Tab PO DAILY 08/09/19 Reported Lisinopril 5 Mg Tablet 1 Tab PO DAILY 08/09/19 Reported Protonix (Pantoprazole Sodium) 20 Mg Tablet.dr 1 Tab PO DAILY 08/09/19 Reported Stool Softener (Docusate Sodium) 50 Mg Capsule 50 Mg PO DAILY 08/09/19 Reported Tylenol Extra Strength (Acetaminophen) 500 Mg Tablet 500 Mg PO Q6HRS PRN 08/09/19 Reported Calcium 500 + Vit D 200 Caplet (Calcium Carbonate/Vitamin D3) 1 Each Tablet 1 Each PO DAILY 08/09/19 Reported Impression . 1. Bronchospasm, likely related to mild reactive airway disease. She has seasonal allergies and usually symptoms flare up during the springtime more than rest of the year. At present, she does not have any postnasal drainage. She would benefit from steroid inhaler a sOP. wheezing resolved on pulmicort 2. Acute pancreatitis. Workup per Gastroenterology and primary care. Plan . 1. Clinically much better. Continue to taper steroids. 2. Continue DuoNebs. 3. Pulmicort. 4. As an outpatient, she will benefit from Flovent inhaler. 5. We will follow along with you as needed.. Discussed with the patient's . BRANDAN TORRES MD Aug 11, 2019 11:36
[2019-08-11] MEDS: methylPREDNISolone SOD SUCC PF 40 MG/ML VIAL. IV SCH (11:39)
--- NOTE | 2019-08-11 14:03 | PDOC ---
Subjective: Subjective: Back pain worse - "burning inside." LUQ discomfort w/ clears, waves of nausea. Feels hot. wants to know if her parathyroid issue contributes. Objective: Objective: pulls up MyChart from [facility] on phone: EUS: PD 1-2mm, CBD 3mm, hypoechoic pancreatic lesion filled with debris w/ peripheral calcifications (?resolving pseudocyst) - biopsy showed acellular debris c/w cyst Colonoscopy: 4mm sigmoid polyp (no path I saw) and external hemorrhoids Vital Signs: Vital Signs Date Time Temp Pulse Resp B/P (MAP) Pulse Ox O2 Delivery O2 Flow Rate FiO2 08/11/19 12:42 Room Air 08/11/19 12:08 95 08/11/19 11:00 98.4 63 16 147/64 (91) 98.4 08/11/19 02:38 2.0 Labs: Laboratory Tests Test 08/11/19 05:55 Lipase 488 U/L URINE CULTURE Final Final report URINE CULTURE RES 1 Final No growth PE: GEN: uncomfortable ABD: LUQ discomfort, NABS, soft SKIN: skin is warm, very light red rash left flank NEURO/PSYCH: A & O �3 A/P: Chronic abd pain Pancreatic cyst, ?chronic pancreatitis -- Back pain is worse today. Tolerating clears but has LUQ pain. Will review w/ Dr. Schuler. ANA BANG Aug 11, 2019 14:03
[2019-08-11 15:00] VITALS: BP 157/94
[2019-08-11] MEDS: ACETAMINOPHEN 500 MG TABLET PO PRN (17:39)
[2019-08-11 19:00] VITALS: BP 155/64
[2019-08-11] MEDS: traMADol 50 MG TABLET PO PRN (20:50)
[2019-08-11 23:00] VITALS: BP 162/87
[2019-08-12] MEDS: fentaNYL PF VIAL 100 MCG/2 ML VIAL IV PRN ×4 (01:58→16:27)
[2019-08-12 02:31] VITALS: BP 173/86
[2019-08-12 05:01] LABS: ALBUMIN 3.1 g/dL (3.4-5.0); ALBUMIN/GLOBULIN RATIO 0.8 (1.0-1.7); CALCIUM 8.2 mg/dL (8.5-10.1); CREATININE 0.8 mg/dL (0.6-1.0); GFR 76.2; TOTAL BILIRUBIN 0.3 mg/dL (0.2-1.0); TOTAL PROTEIN 6.8 g/dL (6.4-8.2)
[2019-08-12] MEDS ORDERED: MORPHINE SULFATE 4 MG/ML VIAL. IV ONE (06:00)
[2019-08-12] MEDS: LEVOTHYROXINE 137 MCG TABLET PO SCH (06:30)
[2019-08-12] MEDS: PANTOPRAZOLE 40 MG TABLET.DR. PO SCH (06:30)
[2019-08-12] MEDS: IV NORMAL SALINE 1000ML BAG 1,000 ML IV SCH ×2 (06:39→15:14)
[2019-08-12 07:00] VITALS: BP 155/85
[2019-08-12] MEDS: BUDESONIDE 0.5 MG/2 ML NEBU. NEB SCH ×2 (07:13→19:43)
[2019-08-12] MEDS: IPRATRPIUM/ALBUTEROL 0.5/2.5MG 3 ML NEBU. NEB SCH ×4 (07:13→19:43)
--- NOTE | 2019-08-12 07:59 | PDOC ---
PULMONARY PROGRESS NOTES Subjective feeling much better denies shortness of breath, denies cough Remains on room air Vitals Vital Signs Date Time Temp Pulse Resp B/P (MAP) Pulse Ox O2 Delivery O2 Flow Rate FiO2 08/12/19 07:40 16 08/12/19 07:14 95 Room Air 08/12/19 02:51 2.0 08/12/19 02:31 98.2 57 173/86 (115) 98.2 ROS: No Nausea, No Chest Pain, No Increase Cough General: Alert, No acute distress Lungs: Clear Cardiovascular: S1, S2 Abdomen: Soft Neuro Exam: Alert Extremities: No Edema Skin: Warm Labs Laboratory Tests Test 08/11/19 05:55 08/12/19 03:38 Lipase 488 U/L (73-393) 413 U/L (73-393) Sodium Level 142 mmol/L (136-145) Potassium Level 4.0 mmol/L (3.5-5.1) Chloride Level 107 mmol/L (98-107) Carbon Dioxide Level 26 mmol/L (21-32) Anion Gap 9 (6-14) Blood Urea Nitrogen 16 mg/dL (7-20) Creatinine 0.8 mg/dL (0.6-1.0) Estimated GFR (Cockcroft-Gault) 76.2 BUN/Creatinine Ratio 20 (6-20) Glucose Level 110 mg/dL (70-99) Calcium Level 8.2 mg/dL (8.5-10.1) Total Bilirubin 0.3 mg/dL (0.2-1.0) Aspartate Amino Transf (AST/SGOT) 69 U/L (15-37) Alanine Aminotransferase (ALT/SGPT) 181 U/L (14-59) Alkaline Phosphatase 183 U/L (46-116) Total Protein 6.8 g/dL (6.4-8.2) Albumin 3.1 g/dL (3.4-5.0) Albumin/Globulin Ratio 0.8 (1.0-1.7) Laboratory Tests Test 08/12/19 03:38 Sodium Level 142 mmol/L (136-145) Potassium Level 4.0 mmol/L (3.5-5.1) Chloride Level 107 mmol/L (98-107) Carbon Dioxide Level 26 mmol/L (21-32) Anion Gap 9 (6-14) Blood Urea Nitrogen 16 mg/dL (7-20) Creatinine 0.8 mg/dL (0.6-1.0) Estimated GFR (Cockcroft-Gault) 76.2 BUN/Creatinine Ratio 20 (6-20) Glucose Level 110 mg/dL (70-99) Calcium Level 8.2 mg/dL (8.5-10.1) Total Bilirubin 0.3 mg/dL (0.2-1.0) Aspartate Amino Transf (AST/SGOT) 69 U/L (15-37) Alanine Aminotransferase (ALT/SGPT) 181 U/L (14-59) Alkaline Phosphatase 183 U/L (46-116) Total Protein 6.8 g/dL (6.4-8.2) Albumin 3.1 g/dL (3.4-5.0) Albumin/Globulin Ratio 0.8 (1.0-1.7) Lipase 413 U/L (73-393) Medications Active Scripts Medications Dose Route/Sig Max Daily Dose Days Date Category Hsrnjvfdxz-Ftomgnaiiwl-Cqx Tab (Gluc/Servando-Msm#2/C/D3/Fran/Born) 1 Each Tablet 1 Tab-Cap PO DAILY 08/09/19 Reported Effexor Xr (Venlafaxine Hcl) 150 Mg Cap.er.24h 1 Cap PO DAILY 08/09/19 Reported Levothyroxine Sodium 137 Mcg Tablet 1 Tab PO DAILY 08/09/19 Reported Lisinopril 5 Mg Tablet 1 Tab PO DAILY 08/09/19 Reported Protonix (Pantoprazole Sodium) 20 Mg Tablet.dr 1 Tab PO DAILY 08/09/19 Reported Stool Softener (Docusate Sodium) 50 Mg Capsule 50 Mg PO DAILY 08/09/19 Reported Tylenol Extra Strength (Acetaminophen) 500 Mg Tablet 500 Mg PO Q6HRS PRN 08/09/19 Reported Calcium 500 + Vit D 200 Caplet (Calcium Carbonate/Vitamin D3) 1 Each Tablet 1 Each PO DAILY 08/09/19 Reported Impression . 1. Bronchospasm, likely related to mild reactive airway disease. 2. Seasonal allergies increased symptoms during spring 3. Acute pancreatitis. 4.Transaminitis Plan . 1. Clinically much better. Continue to taper steroids. 2. Continue DuoNebs. 3. Pulmicort. 4. As an outpatient, she will benefit from Flovent inhaler. 5. We will follow along with you as needed. 7. GI and IM recs for elevated LFT and pancreatitis 6.Discussed with RN . BRANDAN TORRES MD Aug 12, 2019 07:59
--- NOTE | 2019-08-12 08:29 | PDOC ---
Infectious Disease Note Vital Sign Vital Signs Vital Signs Date Time Temp Pulse Resp B/P (MAP) Pulse Ox O2 Delivery O2 Flow Rate FiO2 08/12/19 07:40 16 08/12/19 07:14 95 Room Air 08/12/19 02:51 2.0 08/12/19 02:31 98.2 57 173/86 (115) 98.2 Labs Lab Laboratory Tests Test 08/12/19 03:38 Sodium Level 142 mmol/L (136-145) Potassium Level 4.0 mmol/L (3.5-5.1) Chloride Level 107 mmol/L (98-107) Carbon Dioxide Level 26 mmol/L (21-32) Anion Gap 9 (6-14) Blood Urea Nitrogen 16 mg/dL (7-20) Creatinine 0.8 mg/dL (0.6-1.0) Estimated GFR (Cockcroft-Gault) 76.2 BUN/Creatinine Ratio 20 (6-20) Glucose Level 110 mg/dL (70-99) Calcium Level 8.2 mg/dL (8.5-10.1) Total Bilirubin 0.3 mg/dL (0.2-1.0) Aspartate Amino Transf (AST/SGOT) 69 U/L (15-37) Alanine Aminotransferase (ALT/SGPT) 181 U/L (14-59) Alkaline Phosphatase 183 U/L (46-116) Total Protein 6.8 g/dL (6.4-8.2) Albumin 3.1 g/dL (3.4-5.0) Albumin/Globulin Ratio 0.8 (1.0-1.7) Lipase 413 U/L (73-393) Micro Microbiology 08/08/19 Urine Culture - Final, Complete 08/08/19 Urine Culture Result 1 (LEIGHTON) - Final, Complete Objective Assessment Skin lesions - bug bites/scratches but no evidence of shingle Musculoskeletal back pain. Has a point tenderness left mid thoracic next to spine. reproducible ? "knot" Pancreatitis Emycin allergy - upset stomach - has tolerated Azithromycin Plan Plan of Care No need for antivirals Thank you D/w and nursing # [id number] MANUEL ROLAND MD Aug 12, 2019 08:29
[2019-08-12] MEDS: LIDOCAINE (700MG/PATCH) PATCH. TD SCH (08:38)
[2019-08-12] MEDS: traMADol 50 MG TABLET PO SCH ×4 (08:39→20:36)
[2019-08-12] MEDS: guaiFENesin DM 200MG/20MG 10 ML SYRUP PO SCH ×4 (08:39→20:35)
[2019-08-12] MEDS: DOCUSATE SODIUM 100 MG CAPSULE. PO SCH (08:40)
[2019-08-12] MEDS: VENLAFAXINE 50 MG TABLET. PO SCH ×3 (08:40→20:36)
[2019-08-12] MEDS: CALCIUM CARB/VIT D3 500/200 TABLET. PO SCH (08:40)
[2019-08-12] MEDS: LIPASE/PROTEAS/AMYLAS 10/32/42 CAPSULE.DR. PO SCH ×3 (08:40→16:26)
[2019-08-12] MEDS: LISINOPRIL 5 MG TABLET. PO SCH (08:40)
--- NOTE | 2019-08-12 09:06 | PDOC ---
PROGRESS NOTES Chief Complaint Chief Complaint impression 1. Acute idioapthic pancreatitis r/o pseudocyst -non drinker, Along the anterior margin of the pancreatic head is an indeterminate lesion measuring up to 3.5 cm with surrounding inflammatory stranding. This might represent acute on chronic pancreatitis, or possibly sequela of chronic pancreatitis such as calcified pseudocyst. 2. Morbid obesity BMI 46.4 3. WHeezy, seasonal allergies -better - flovent on dc, CXR NAD 4. HTN, hypothy - chronic stable 5,. HArd of hearing since - has amplifier 6. Skin lesions - bug bites/scratches no evidence of shingles 7. cxr c/w Linear opacities left lung base likely scarring/atelectasis. 8. morbid obesity 9. transaminitis 08/12 Not improving. Thoroughly evaluated in the past @ [facility] 27 min pt exam, chart review, > 50% of time spent with exam, chart review, pt care coordination History of Present Illness History of Present Illness Still epigastric pain radiating to back BUt ,lipase down to 466 NO fevers GI note reviewed, waiting for recirds [facility] re recent CT - i followed up with RN and head of history ( khushboo signed a waiver to release records) Ambulating, at bedside She non toxic appearing but claims food made pain worse? NO more wheezing! - flovent on dc per pulmo note dry intertriginous areas - but might benefit from a shower? PLAN: COnt IVF - might need to back down NPO - will wait for gI, she is agreeable, whatever need to be done (first episode pancreatitis known, non etoh, normal TG and non dm) COnt ambulating ad gilberto REcheck lipase tmr/labs Dw TRial of pancreatic enzyme per gI recs - i put the order in if they are agreeable with my choice but can change as deemed appropriate ff up [facility] ct scan Vitals Vitals Vital Signs Date Time Temp Pulse Resp B/P (MAP) Pulse Ox O2 Delivery O2 Flow Rate FiO2 08/12/19 08:40 63 155/85 08/12/19 08:40 18 Room Air 08/12/19 07:14 95 08/12/19 07:00 97.7 97.7 08/12/19 02:51 2.0 Physical Exam General: Alert, Oriented X3, Cooperative, No acute distress Heart: Regular rate, Normal S1, Normal S2 Lungs: Clear Abdomen: Normal bowel sounds, Soft, No tenderness, No hepatosplenomegaly, No masses Extremities: No clubbing, No cyanosis, No edema, Normal pulses, No tenderness/swelling Skin: No rashes, No breakdown, No significant lesion Labs LABS Comparison: None. Technique: After administration of intravenous contrast, helical CT of the abdomen and pelvis was performed from the lung bases through the ischial tuberosities. Coronal and sagittal reconstructions were obtained. 60 mL of Omnipaque renal were used. One or more of the following dose reduction techniques were utilized: Automated exposure control (AEC), Adjustment of mA and/or kV according to patient size, Use of iterative reconstruction technique such as ASiR, CT scan done according to ALARA and image gently/image wisely Abdomen Findings: No consolidation. Right lower lobe calcified granuloma. Multiple small pancreatic parenchyma calcifications consistent with chronic pancreatitis. Anterior along the anterior margin of the head of the pancreas there is a heterogeneous structure with surrounding inflammatory stranding measuring 3.5 x 2.2 x 3.1 cm. Portion of this structure demonstrates peripheral calcification. The liver, spleen, and bilateral adrenal glands are normal. Cholecystectomy. Symmetric renal enhancement. There is no focal renal mass. There is no hydronephrosis. The visualized loops of small bowel are normal. The visualized loops of large bowel are normal. There is no evidence of bowel obstruction. Appendix is normal. There is no free fluid. There is no mesenteric or retroperitoneal adenopathy. The abdominal aorta is normal in caliber. Pelvis Findings: Urinary bladder is normal. No pelvic free fluid. There is no pelvic or inguinal adenopathy. There is no acute bony abnormality. Wide neck ventral hernia containing large and small bowel without evidence of incarceration. IMPRESSION: Along the anterior margin of the pancreatic head is an indeterminate lesion measuring up to 3.5 cm with surrounding inflammatory stranding. This might represent acute on chronic pancreatitis, or possibly sequela of chronic pancreatitis such as calcified pseudocyst. Correlate with laboratory values. Further evaluation with nonemergent MRI should be considered, as a neoplastic process could have a similar appearance. Electronically signed by: Tyrel Leo MD (08/03/2019 3:12 AM) [facility] EXAM: PA and Lateral Views of the Chest DATE: 08/09/2019 10:31 AM INDICATION: Wheezing COMPARISON: No Prior FINDINGS: The heart is not enlarged. Mediastinal and hilar contours are normal. No focal parenchymal airspace opacity. Linear opacities left lung base likely scarring/atelectasis. No pleural effusion or pneumothorax. IMPRESSION: 1. No evidence for acute cardiopulmonary process. 2. Linear opacities left lung base likely scarring/atelectasis. Electronically signed by: Brain Cantu MD (08/09/2019 2:37 PM) [facility] Laboratory Tests Test 08/12/19 03:38 Sodium Level 142 mmol/L (136-145) Potassium Level 4.0 mmol/L (3.5-5.1) Chloride Level 107 mmol/L (98-107) Carbon Dioxide Level 26 mmol/L (21-32) Anion Gap 9 (6-14) Blood Urea Nitrogen 16 mg/dL (7-20) Creatinine 0.8 mg/dL (0.6-1.0) Estimated GFR (Cockcroft-Gault) 76.2 BUN/Creatinine Ratio 20 (6-20) Glucose Level 110 mg/dL (70-99) Calcium Level 8.2 mg/dL (8.5-10.1) Total Bilirubin 0.3 mg/dL (0.2-1.0) Aspartate Amino Transf (AST/SGOT) 69 U/L (15-37) Alanine Aminotransferase (ALT/SGPT) 181 U/L (14-59) Alkaline Phosphatase 183 U/L (46-116) Total Protein 6.8 g/dL (6.4-8.2) Albumin 3.1 g/dL (3.4-5.0) Albumin/Globulin Ratio 0.8 (1.0-1.7) Lipase 413 U/L (73-393) Assessment and Plan Assessmemt and Plan Problems Medical Problems: (1) Acute pancreatitis Status: Acute (2) Dyslipidemia Status: Chronic (3) Elevated LFTs Status: Acute (4) Elevated lipase Status: Acute (5) Failure of outpatient treatment Status: Acute (6) HTN (hypertension) Status: Chronic (7) Hypothyroidism Status: Chronic (8) Intractable abdominal pain Status: Acute (9) Yeast cystitis Status: Acute Comment Review of Relevant I have reviewed the following items kira (where applicable) has been applied. Labs Laboratory Tests Test 08/11/19 05:55 08/12/19 03:38 Lipase 488 U/L (73-393) 413 U/L (73-393) Sodium Level 142 mmol/L (136-145) Potassium Level 4.0 mmol/L (3.5-5.1) Chloride Level 107 mmol/L (98-107) Carbon Dioxide Level 26 mmol/L (21-32) Anion Gap 9 (6-14) Blood Urea Nitrogen 16 mg/dL (7-20) Creatinine 0.8 mg/dL (0.6-1.0) Estimated GFR (Cockcroft-Gault) 76.2 BUN/Creatinine Ratio 20 (6-20) Glucose Level 110 mg/dL (70-99) Calcium Level 8.2 mg/dL (8.5-10.1) Total Bilirubin 0.3 mg/dL (0.2-1.0) Aspartate Amino Transf (AST/SGOT) 69 U/L (15-37) Alanine Aminotransferase (ALT/SGPT) 181 U/L (14-59) Alkaline Phosphatase 183 U/L (46-116) Total Protein 6.8 g/dL (6.4-8.2) Albumin 3.1 g/dL (3.4-5.0) Albumin/Globulin Ratio 0.8 (1.0-1.7) Laboratory Tests Test 08/12/19 03:38 Sodium Level 142 mmol/L (136-145) Potassium Level 4.0 mmol/L (3.5-5.1) Chloride Level 107 mmol/L (98-107) Carbon Dioxide Level 26 mmol/L (21-32) Anion Gap 9 (6-14) Blood Urea Nitrogen 16 mg/dL (7-20) Creatinine 0.8 mg/dL (0.6-1.0) Estimated GFR (Cockcroft-Gault) 76.2 BUN/Creatinine Ratio 20 (6-20) Glucose Level 110 mg/dL (70-99) Calcium Level 8.2 mg/dL (8.5-10.1) Total Bilirubin 0.3 mg/dL (0.2-1.0) Aspartate Amino Transf (AST/SGOT) 69 U/L (15-37) Alanine Aminotransferase (ALT/SGPT) 181 U/L (14-59) Alkaline Phosphatase 183 U/L (46-116) Total Protein 6.8 g/dL (6.4-8.2) Albumin 3.1 g/dL (3.4-5.0) Albumin/Globulin Ratio 0.8 (1.0-1.7) Lipase 413 U/L (73-393) Microbiology 08/08/19 Urine Culture - Final, Complete 08/08/19 Urine Culture Result 1 (LEIGHTON) - Final, Complete Medications Current Medications Ondansetron HCl (Zofran) 4 mg 1X ONCE IV Last administered on 08/08/19 20:33; Start 08/08/19 at 20:30; Stop 08/08/19 at 20:31; Status DC Famotidine (Pepcid Vial) 20 mg 1X ONCE IVP Last administered on 08/08/19at 20:33; Start 08/08/19 at 20:30; Stop 08/08/19 at 20:31; Status DC Ketorolac Tromethamine (Toradol 15mg Vial) 15 mg 1X ONCE IV Last administered on 08/08/19at 20:33; Start 08/08/19 at 20:15; Stop 08/08/19 at 20:16; Status DC Sodium Chloride 1,000 ml @ 1,000 mls/hr 1X ONCE IV Last administered on 08/08/19at 20:33; Start 08/08/19 at 20:30; Stop 08/08/19 at 21:29; Status DC Fluconazole (Diflucan) 200 mg 1X ONCE PO Last administered on 08/08/19at 20:47; Start 08/08/19 at 21:00; Stop 08/08/19 at 21:01; Status DC Fentanyl Citrate (Fentanyl 2ml Vial) 50 mcg 1X ONCE IV Last administered on 08/08/19at 21:51; Start 08/08/19 at 22:00; Stop 08/08/19 at 22:01; Status DC Ondansetron HCl (Zofran) 4 mg PRN Q8HRS PRN IV NAUSEA/VOMITING 1ST CHOICE; Start 08/08/19 at 21:45; Stop 08/09/19 at 08:01; Status DC Fentanyl Citrate (Fentanyl 2ml Vial) 50 mcg PRN Q2HRS PRN IV SEVERE PAIN 7-10 Last administered on 08/12/19at 07:06; Start 08/08/19 at 21:45 Sodium Chloride 1,000 ml @ 100 mls/hr Q10H IV Last administered on 08/12/19at 06:39; Start 08/09/19 at 08:00 Ondansetron HCl (Zofran) 4 mg PRN Q6HRS PRN IV NAUSEA/VOMITING 1ST CHOICE; Start 08/09/19 at 08:00; Stop 08/10/19 at 07:59; Status DC Tramadol HCl (Ultram) 50 mg PRN Q6HRS PRN PO MILD TO MODERATE PAIN Last administered on 08/11/19 20:51; Start 08/09/19 at 08:00; Stop 08/12/19 at 06:02; Status DC Acetaminophen (Tylenol) 500 mg PRN Q6HRS PRN PO MILD PAIN 1-3 Last administered on 08/11/19 17:39; Start 08/09/19 at 08:00 Calcium/Vitamin D (Oscal D 500mg/ 200uts) 1 tab DAILY PO Last administered on 08/12/19 08:40; Start 08/09/19 at 09:00 Levothyroxine Sodium (Synthroid) 137 mcg DAILY06 PO Last administered on 08/12/19 06:30; Start 08/09/19 at 10:30 Lisinopril (Prinivil) 5 mg DAILY PO Last administered on 08/12/19 08:40; Start 08/09/19 at 09:00 Docusate Sodium (Colace) 100 mg DAILY PO Last administered on 08/12/19 08:40; Start 08/09/19 at 09:00 Non-Formulary Medication (Gluc/Servando-Msm#2/ C/D3/Fran/Born (Wbebjxgefz-Sifegivtujk-Kxd Tab)) 1 tab-cap DAILY PO ; Start 08/09/19 at 09:00; Status UNV Pantoprazole Sodium (Protonix) 40 mg DAILYAC PO Last administered on 08/12/19 06:30; Start 08/09/19 at 11:30 Venlafaxine HCl (Effexor) 50 mg TID PO Last administered on 08/12/19 08:40; Start 08/09/19 at 09:00 Albuterol/ Ipratropium (Duoneb) 3 ml RTQID NEB Last administered on 08/12/19 07:13; Start 08/09/19 at 12:00 Albuterol/ Ipratropium (Duoneb) 3 ml 1X ONCE NEB Last administered on 9/16/19at 09:08; Start 08/09/19 at 09:00; Stop 08/09/19 at 09:01; Status DC Methylprednisolone Sodium Succinate (SOLU-Medrol 125MG VIAL) 125 mg 1X ONCE IV Last administered on 08/09/19at 09:08; Start 08/09/19 at 09:00; Stop 08/09/19 at 09:01; Status DC Methylprednisolone Sodium Succinate (SOLU-Medrol 40MG VIAL) 40 mg Q8HRS IV ; Start 08/09/19 at 14:00; Stop 08/09/19 at 13:01; Status DC Guaifenesin (Robitussin Dm) 10 ml PRN Q6HRS PRN PO COUGH; Start 08/09/19 at 09:00; Stop 08/09/19 at 09:21; Status DC Guaifenesin (Robitussin Dm) 10 ml QID PO Last administered on 08/12/19at 08:40; Start 08/09/19 at 09:30 Albuterol Sulfate (Ventolin Neb Soln) 2.5 mg PRN Q4HRS PRN NEB SHORTNESS OF NISHANT ATH; Start 08/09/19 at 09:30 Methylprednisolone Sodium Succinate (SOLU-Medrol 40MG VIAL) 40 mg BID IV Last administered on 08/10/19at 08:45; Start 08/09/19 at 13:15; Stop 08/10/19 at 10:47; Status DC Budesonide (Pulmicort) 0.5 mg RTBID NEB Last administered on 08/12/19at 07:13; Start 08/09/19 at 20:00 Amylase/Lipase/ Protease (Zenpep 10,000) 2 cap TIDWMEALS PO Last administered o n 08/12/19at 08:40; Start 08/09/19 at 17:00 Amylase/Lipase/ Protease (Zenpep 5,000) 2 cap TIDWMEALS PO ; Start 08/10/19 at 12:00; Status UNV Methylprednisolone Sodium Succinate (SOLU-Medrol 40MG VIAL) 40 mg QD IV Last administered on 08/11/19at 11:45; Start 08/10/19 at 10:45; Stop 08/12/19 at 08:36; Status DC Tramadol HCl (Ultram) 50 mg QID PO Last administered on 08/12/19at 08:40; Start 08/12/19 at 09:00 Morphine Sulfate (Morphine Sulfate) 4 mg 1X ONCE IV Last administered on 08/12/19at 06:09; Start 08/12/19 at 06:00; Stop 08/12/19 at 06:04; Status DC Lidocaine (Lidoderm) 1 patch DAILY TD Last administered on 08/12/19at 08:40; Start 08/12/19 at 09:00 Miscellaneous (Lidoderm Patch Removal) 1 ea [facility] ; Start 08/12/19 at 21:00 Methylprednisolone Sodium Succinate (SOLU-Medrol 40MG VIAL) 30 mg DAILY IV ; Start 08/12/19 at 10:45 Active Scripts Active Reported Dzmclpjcox-Ihciwzzgoqk-Fql Tab (Gluc/Servando-Msm#2/C/D3/Fran/Born) 1 Each Tablet 1 Tab-Cap PO DAILY Effexor Xr (Venlafaxine Hcl) 150 Mg Cap.er.24h 1 Cap PO DAILY Levothyroxine Sodium 137 Mcg Tablet 1 Tab PO DAILY Lisinopril 5 Mg Tablet 1 Tab PO DAILY Protonix (Pantoprazole Sodium) 20 Mg Tablet.dr 1 Tab PO DAILY Stool Softener (Docusate Sodium) 50 Mg Capsule 50 Mg PO DAILY Tylenol Extra Strength (Acetaminophen) 500 Mg Tablet 500 Mg PO Q6HRS PRN Calcium 500 + Vit D 200 Caplet (Calcium Carbonate/Vitamin D3) 1 Each Tablet 1 Each PO DAILY Vitals/I & O Vital Sign - Last 24 Hours 08/11/19 08/11/19 08/11/19 08/11/19 08:00 08:48 09:06 11:00 Temp 98.4 98.4 Pulse 57 63 Resp 16 B/P (MAP) 166/83 147/64 (91) Pulse Ox 95 94 O2 Delivery Room Air Room Air Room Air 08/11/19 08/11/19 08/11/19 08/11/19 11:45 12:08 12:42 15:00 Temp 97.9 97.9 Pulse 62 Resp 16 B/P (MAP) 157/94 (115) Pulse Ox 95 97 O2 Delivery Room Air Room Air Room Air Room Air 08/11/19 08/11/19 08/11/19 08/11/19 15:39 19:00 20:00 20:00 Temp 97.6 97.6 Pulse 62 Resp 18 B/P (MAP) 155/64 (94) Pulse Ox 95 96 95 O2 Delivery Room Air Room Air Room Air Room Air O2 Flow Rate 2.0 08/11/19 08/11/19 08/11/19 08/11/19 20:00 20:51 21:59 23:00 Temp 98.2 98.2 Pulse 61 Resp 18 B/P (MAP) 162/87 (112) Pulse Ox 95 95 95 98 O2 Delivery Room Air Room Air Room Air Room Air O2 Flow Rate 2.0 2.0 08/11/19 08/12/19 08/12/19 08/12/19 23:38 01:36 01:59 02:31 Temp 98.2 98.2 Pulse 57 Resp 18 B/P (MAP) 173/86 (115) Pulse Ox 98 98 98 96 O2 Delivery Room Air Room Air Room Air Room Air O2 Flow Rate 2.0 2.0 08/12/19 08/12/19 08/12/19 08/12/19 02:51 04:13 06:09 07:00 Temp 97.7 97.7 Pulse 63 Resp 16 B/P (MAP) 155/85 (108) Pulse Ox 96 96 96 95 O2 Delivery Room Air Room Air Room Air Room Air O2 Flow Rate 2.0 08/12/19 08/12/19 08/12/19 08/12/19 07:05 07:06 07:14 07:40 Resp 16 Pulse Ox 96 96 95 O2 Delivery Room Air Room Air Room Air 08/12/19 08/12/19 08:40 08:40 Pulse 63 Resp 18 B/P (MAP) 155/85 O2 Delivery Room Air Intake and Output 08/11/19 08/12/19 08/12/19 17:00 01:00 09:00 Intake Total 640 ml 480 ml Balance 640 ml 480 ml AZEB HOLLY MD Aug 12, 2019 09:06
--- NOTE | 2019-08-12 10:06 | PDOC ---
Subjective: Subjective: Feels "rough" again. Increased pain at 5:00 a.m. - left upper back and now lower too, also epigastric tracking to LUQ. Thought she might need to stool - no results. [place] worse after cream of wheat (pain-worse - no n/v). asks if she could have pancreatic cancer, what the next step is, etc - also wants to know if she could have an MRI because with abdominal pain in the past, she was diagnosed with a disc problem in her back. Objective: Objective: D/w/ Dr. Da Silva - not Shingles. Reviewed CT A/P from (per 's computer) - mentions diverticulosis. Vital Signs: Vital Signs Date Time Temp Pulse Resp B/P (MAP) Pulse Ox O2 Delivery O2 Flow Rate FiO2 08/12/19 09:33 18 Room Air 08/12/19 08:40 63 155/85 08/12/19 07:14 95 08/12/19 07:00 97.7 97.7 08/12/19 02:51 2.0 Labs: Laboratory Tests Test 08/12/19 03:38 Sodium Level 142 mmol/L Potassium Level 4.0 mmol/L Chloride Level 107 mmol/L Carbon Dioxide Level 26 mmol/L Anion Gap 9 Blood Urea Nitrogen 16 mg/dL Creatinine 0.8 mg/dL Estimated GFR (Cockcroft-Gault) 76.2 BUN/Creatinine Ratio 20 Glucose Level 110 mg/dL Calcium Level 8.2 mg/dL Total Bilirubin 0.3 mg/dL Aspartate Amino Transf (AST/SGOT) 69 U/L Alanine Aminotransferase (ALT/SGPT) 181 U/L Alkaline Phosphatase 183 U/L Total Protein 6.8 g/dL Albumin 3.1 g/dL Albumin/Globulin Ratio 0.8 Lipase 413 U/L PE: GEN: looks uncomfortable as has the past several days LUNGS: room air HEART: RRR ABD: quiet BS, soft, epigastric and LUQ tenderness - maybe toward LLQ today - now has lidocaine patch left lower back NEURO/PSYCH: A & O �3 A/P: Chronic abd and back pain Pancreatic cyst, ?chronic pancreatitis -- Not improving. Thoroughly evaluated in the past @ and [facility]. Had CT on 08/02 - ?re-image - will review w/ Dr. Schuler. ANA BANG Aug 12, 2019 10:06
[2019-08-12] MEDS: methylPREDNISolone SOD SUCC PF 40 MG/ML VIAL. IV SCH (10:45)
[2019-08-12 11:00] VITALS: BP 128/86
[2019-08-12 15:00] VITALS: BP 148/88
[2019-08-12 19:00] VITALS: BP 144/79
[2019-08-12] MEDS: HYDROcodone/APAP 5/325MG 1 TAB TABLET PO PRN (20:36)
[2019-08-12] MEDS: PATCH REMOVAL. MC SCH (21:00)
[2019-08-12 23:00] VITALS: BP 178/101
[2019-08-13] VITALS (7 sets, daily range): BP systolic 148–201; BP diastolic 77–98
[2019-08-13] MEDS: hydrALAZINE 20 MG/ML VIAL. IVP PRN (00:11)
[2019-08-13] MEDS: fentaNYL PF VIAL 100 MCG/2 ML VIAL IV PRN ×5 (00:12→22:50)
[2019-08-13] MEDS: IV NORMAL SALINE 1000ML BAG 1,000 ML IV SCH ×3 (02:00→22:00)
--- NOTE | 2019-08-13 03:14 | CONS ---
DATE OF CONSULTATION: 08/12/2019 REQUESTING PHYSICIAN: KARLA Merida, nurse practitioner. REASON FOR CONSULTATION: Questionable shingles. HISTORY OF PRESENT ILLNESS: The patient is a pleasant 49-year-old female who was admitted secondary to abdominal pain, subsequently has been found to have acute pancreatitis. Apparently, she has findings of chronic pancreatitis in the past and she has been evaluated by [facility]. She was complaining of some back pain, particularly in the left side. Some burning in the area when she gets into a certain position and she had developed some questionable rash on the back. Hence, I was consulted. Currently, the patient is sitting upright in bed. She has not been having any overt fevers, chills, or sweats, but she does get hot and cold at times. She has no headaches. No sore throat. No cough. No problems with her ears. She has no gross shortness of air. She has no chest discomfort. She does have occasional wheezing. No dysuria, frequency, urgency. She did have some nausea. No cramps or diarrhea. PAST MEDICAL HISTORY: Positive for hypertension, hypothyroidism, osteoporosis, uterine cancer, and depression. PAST SURGICAL HISTORY: Positive for parathyroidectomy, cholecystectomy, hysterectomy, hernia repairs with mesh displacement, hammertoe surgery, pancreas biopsy x 2. REVIEW OF SYSTEMS: Otherwise negative. ALLERGIES: LISTED ERYTHROMYCIN, WHICH CAUSES NAUSEA AND VOMITING, BUT SHE HAS TOLERATED AZITHROMYCIN, OXYCODONE IS ALSO LISTED. SOCIAL HISTORY: She is and has a history of smoking. She has dogs at home. FAMILY HISTORY: Positive for cancer and pancreatitis. CURRENT MEDICATIONS: Albuterol nebulizer, Pulmicort, Colace, Synthroid, Prinivil, Solu-Medrol, pantoprazole, Ultram, and Effexor. PHYSICAL EXAMINATION: VITAL SIGNS: She has been afebrile, temperature is 97.7, pulse 63, respirations 16, blood pressure 155/85, and satting 95% on room air. CONSTITUTIONAL: She is in bed. She is cooperative. She is in no acute distress. HEENT: Pupils equal and reactive. Normal conjunctivae. Oral cavity, pharynx was clear. NECK: Supple. Good range of motion, no JVD. LUNGS: Without wheeze. HEART: S1, S2. ABDOMEN: Obese and soft. There is some tenderness. EXTREMITIES: Without clubbing, cyanosis. She has no gross edema. She has multiple scabs and little dried lesions consistent with bug bites and scratches on her both lower extremities and her upper extremities. On the left thoracic mid area of her back, she has a faint erythematous area. There are no vesicles. It was not raised, is not grossly tender. She does have point tenderness just off the left side of her spine in the mid thoracic area that is reproducible on palpation. NEUROLOGIC: She is nonfocal. PSYCHIATRIC: Affect is appropriate. LABORATORY DATA: On arrival, white count was 10.4, hemoglobin 12.2, platelets 227, neutrophils 73, lymphs are 16. Glucose today 110, creatinine 0.8, AST 69, ALT 181, alkaline phosphatase 183, lipase 413. Urine culture is negative. Chest x-ray, no acute pulmonary process, but some linear opacities suggestive of scarring atelectasis. IMPRESSION: 1. Skin lesions, bug bites/scratches, but no evidence of shingles. 2. Musculoskeletal back pain. She has point tenderness at the left mid thoracic next to her spine, it is reproducible with questionable "knot," which she has had previously. 3. Pancreatitis. 4. ERYTHROMYCIN ALLERGY causes upset stomach, but she has tolerated azithromycin. RECOMMENDATIONS: Currently, no need for antivirals. Thank you for allowing me to participate in the patient's care. If you have any questions, please do not hesitate to contact me. This was discussed with and nursing. MANUEL ROLAND MD DR: JOHN/ida JOB#: [id number] / [id number]
[2019-08-13] MEDS: LEVOTHYROXINE 137 MCG TABLET PO SCH (06:14)
[2019-08-13] MEDS: PANTOPRAZOLE 40 MG TABLET.DR. PO SCH (06:14)
[2019-08-13] MEDS: BUDESONIDE 0.5 MG/2 ML NEBU. NEB SCH ×2 (07:45→20:11)
[2019-08-13] MEDS: IPRATRPIUM/ALBUTEROL 0.5/2.5MG 3 ML NEBU. NEB SCH ×4 (07:45→20:11)
[2019-08-13] MEDS: LIDOCAINE (700MG/PATCH) PATCH. TD SCH (08:42)
[2019-08-13] MEDS: methylPREDNISolone SOD SUCC PF 40 MG/ML VIAL. IV SCH (08:42)
[2019-08-13] MEDS: LISINOPRIL 5 MG TABLET. PO SCH (08:42)
[2019-08-13] MEDS: guaiFENesin DM 200MG/20MG 10 ML SYRUP PO SCH ×4 (08:42→21:06)
[2019-08-13] MEDS: DOCUSATE SODIUM 100 MG CAPSULE. PO SCH (08:43)
[2019-08-13] MEDS: VENLAFAXINE 50 MG TABLET. PO SCH ×3 (08:43→21:07)
[2019-08-13] MEDS: traMADol 50 MG TABLET PO SCH ×4 (08:43→21:07)
[2019-08-13] MEDS: LIPASE/PROTEAS/AMYLAS 10/32/42 CAPSULE.DR. PO SCH ×3 (08:43→17:13)
[2019-08-13] MEDS: CALCIUM CARB/VIT D3 500/200 TABLET. PO SCH (08:43)
--- NOTE | 2019-08-13 10:10 | PDOC ---
PROGRESS NOTES Chief Complaint Chief Complaint impression 1. Acute idioapthic pancreatitis r/o pseudocyst -non drinker, PAIN WORSE 08/13 Along the anterior margin of the pancreatic head is an indeterminate lesion measuring up to 3.5 cm with surrounding inflammatory stranding. This might represent acute on chronic pancreatitis, or possibly sequela of chronic pancreatitis such as calcified pseudocyst. 2. Morbid obesity BMI 46.4 3. WHeezy, seasonal allergies -better - flovent on dc, CXR NAD 4. HTN, hypothy - chronic stable 5,. HArd of hearing since - has amplifier 6. Skin lesions - bug bites/scratches no evidence of shingles 7. cxr c/w Linear opacities left lung base likely scarring/atelectasis. 8. morbid obesity 9. transaminitis 08/12 Not improving. Thoroughly evaluated in the past @ [facility] 08/[facility] pain worse, MRI DEFERRED TO GI 37 min pt exam, chart review, > 50% of time spent with exam, chart review, pt care coordination History of Present Illness History of Present Illness Still epigastric pain radiating to back BUt ,lipase down to 466 NO fevers GI note reviewed, waiting for records [facility] re recent [facility] - i followed up with RN and assistant secretary ( khushboo signed a waiver to release records) Ambulating, at bedside She non toxic appearing but claims food made pain worse? NO more wheezing! - flovent on dc per pulmo note dry intertriginous areas - but might benefit from a shower? PLAN: COnt IVF - COnt ambulating ad gilberto REcheck lipase tmr/labs Dw TRial of pancreatic enzyme per gI recs - i put the order in if they are agreeable with my choice but can change as deemed appropriate ff up [facility] ct scan Vitals Vitals Vital Signs Date Time Temp Pulse Resp B/P (MAP) Pulse Ox O2 Delivery O2 Flow Rate FiO2 08/13/19 09:52 16 Room Air 08/13/19 08:43 54 174/98 08/13/19 07:45 92 08/13/19 07:00 98.5 98.5 Physical Exam General: Alert, Oriented X3, Cooperative, No acute distress, mild distress Heart: Regular rate, Normal S1, Normal S2 Lungs: Clear Abdomen: Normal bowel sounds, Soft, No tenderness, No hepatosplenomegaly, No masses Extremities: No clubbing, No cyanosis, No edema, Normal pulses, No tenderness/swelling Skin: No rashes, No breakdown, No significant lesion Assessment and Plan Assessmemt and Plan Problems Medical Problems: (1) Acute pancreatitis Status: Acute (2) Dyslipidemia Status: Chronic (3) Elevated LFTs Status: Acute (4) Elevated lipase Status: Acute (5) Failure of outpatient treatment Status: Acute (6) HTN (hypertension) Status: Chronic (7) Hypothyroidism Status: Chronic (8) Intractable abdominal pain Status: Acute (9) Yeast cystitis Status: Acute Comment Review of Relevant I have reviewed the following items kira (where applicable) has been applied. Labs Laboratory Tests Test 08/12/19 03:38 Sodium Level 142 mmol/L (136-145) Potassium Level 4.0 mmol/L (3.5-5.1) Chloride Level 107 mmol/L (98-107) Carbon Dioxide Level 26 mmol/L (21-32) Anion Gap 9 (6-14) Blood Urea Nitrogen 16 mg/dL (7-20) Creatinine 0.8 mg/dL (0.6-1.0) Estimated GFR (Cockcroft-Gault) 76.2 BUN/Creatinine Ratio 20 (6-20) Glucose Level 110 mg/dL (70-99) Calcium Level 8.2 mg/dL (8.5-10.1) Total Bilirubin 0.3 mg/dL (0.2-1.0) Aspartate Amino Transf (AST/SGOT) 69 U/L (15-37) Alanine Aminotransferase (ALT/SGPT) 181 U/L (14-59) Alkaline Phosphatase 183 U/L (46-116) Total Protein 6.8 g/dL (6.4-8.2) Albumin 3.1 g/dL (3.4-5.0) Albumin/Globulin Ratio 0.8 (1.0-1.7) Lipase 413 U/L (73-393) Microbiology 08/08/19 Urine Culture - Final, Complete 08/08/19 Urine Culture Result 1 (LEIGHTON) - Final, Complete Medications Current Medications Ondansetron HCl (Zofran) 4 mg 1X ONCE IV Last administered on 08/08/19at 20:33; Start 08/08/19 at 20:30; Stop 08/08/19 at 20:31; Status DC Famotidine (Pepcid Vial) 20 mg 1X ONCE IVP Last administered on 08/08/19at 20:33; Start 08/08/19 at 20:30; Stop 08/08/19 at 20:31; Status DC Ketorolac Tromethamine (Toradol 15mg Vial) 15 mg 1X ONCE IV Last administered on 08/08/19at 20:33; Start 08/08/19 at 20:15; Stop 08/08/19 at 20:16; Status DC Sodium Chloride 1,000 ml @ 1,000 mls/hr 1X ONCE IV Last administered on 08/08/19at 20:33; Start 08/08/19 at 20:30; Stop 08/08/19 at 21:29; Status DC Fluconazole (Diflucan) 200 mg 1X ONCE PO Last administered on 08/08/19at 20:47; Start 08/08/19 at 21:00; Stop 08/08/19 at 21:01; Status DC Fentanyl Citrate (Fentanyl 2ml Vial) 50 mcg 1X ONCE IV Last administered on 08/08/19at 21:51; Start 08/08/19 at 22:00; Stop 08/08/19 at 22:01; Status DC Ondansetron HCl (Zofran) 4 mg PRN Q8HRS PRN IV NAUSEA/VOMITING 1ST CHOICE; Start 08/08/19 at 21:45; Stop 08/09/19 at 08:01; Status DC Fentanyl Citrate (Fentanyl 2ml Vial) 50 mcg PRN Q2HRS PRN IV SEVERE PAIN 7-10 Last administered on 08/13/19at 06:14; Start 08/08/19 at 21:45 Sodium Chloride 1,000 ml @ 100 mls/hr Q10H IV Last administered on 08/13/19at 09:42; Start 08/09/19 at 08:00 Ondansetron HCl (Zofran) 4 mg PRN Q6HRS PRN IV NAUSEA/VOMITING 1ST CHOICE; St art 08/09/19 at 08:00; Stop 08/10/19 at 07:59; Status DC Tramadol HCl (Ultram) 50 mg PRN Q6HRS PRN PO MILD TO MODERATE PAIN Last administered on 08/11/19at 20:51; Start 08/09/19 at 08:00; Stop 08/12/19 at 06:02; Status DC Acetaminophen (Tylenol) 500 mg PRN Q6HRS PRN PO MILD PAIN 1-3 Last administered on 08/11/19 17:39; Start 08/09/19 at 08:00 Calcium/Vitamin D (Oscal D 500mg/ 200uts) 1 tab DAILY PO Last administered on 08/13/19at 08:43; Start 08/09/19 at 09:00 Levothyroxine Sodium (Synthroid) 137 mcg DAILY06 PO Last administered on 08/13/19 06:14; Start 08/09/19 at 10:30 Lisinopril (Prinivil) 5 mg DAILY PO Last administered on 08/13/19 08:43; Start 08/09/19 at 09:00 Docusate Sodium (Colace) 100 mg DAILY PO Last administered on 08/13/19 08:43; Start 08/09/19 at 09:00 Non-Formulary Medication (Gluc/Servando-Msm#2/ C/D3/Fran/Born (Gcvuueorue-Loqwwcliswr-Ful Tab)) 1 tab-cap DAILY PO ; Start 08/09/19 at 09:00; Status UNV Pantoprazole Sodium (Protonix) 40 mg DAILYAC PO Last administered on 08/13/19 06:14; Start 08/09/19 at 11:30 Venlafaxine HCl (Effexor) 50 mg TID PO Last administered on 08/13/19 08:43; Start 08/09/19 at 09:00 Albuterol/ Ipratropium (Duoneb) 3 ml RTQID NEB Last administered on 08/13/19at 07:45; Start 08/09/19 at 12:00 Albuterol/ Ipratropium (Duoneb) 3 ml 1X ONCE NEB Last administered on 08/09/19at 09:08; Start 08/09/19 at 09:00; Stop 08/09/19 at 09:01; Status DC Methylprednisolone Sodium Succinate (SOLU-Medrol 125MG VIAL) 125 mg 1X ONCE IV Last administered on 08/09/19at 09:08; Start 08/09/19 at 09:00; Stop 08/09/19 at 09:01; Status DC Methylprednisolone Sodium Succinate (SOLU-Medrol 40MG VIAL) 40 mg Q8HRS IV ; Start 08/09/19 at 14:00; Stop 08/09/19 at 13:01; Status DC Guaifenesin (Robitussin Dm) 10 ml PRN Q6HRS PRN PO COUGH; Start 08/09/19 at 09:00; Stop 08/09/19 at 09:21; Status DC Guaifenesin (Robitussin Dm) 10 ml QID PO Last administered on 08/13/19at 08:43; Start 08/09/19 at 09:30 Albuterol Sulfate (Ventolin Neb Soln) 2.5 mg PRN Q4HRS PRN NEB SHORTNESS OF BREATH; Start 08/09/19 at 09:30 Methylprednisolone Sodium Succinate (SOLU-Medrol 40MG VIAL) 40 mg BID IV Last administered on 08/10/19at 08:45; Start 08/09/19 at 13:15; Stop 08/10/19 at 10:47; Status DC Budesonide (Pulmicort) 0.5 mg RTBID NEB Last administered on 08/13/19at 07:45; Start 08/09/19 at 20:00 Amylase/Lipase/ Protease (Zenpep 10,000) 2 cap TIDWMEALS PO Last administered on 08/13/19 08:43; Start 08/09/19 at 17:00 Amylase/Lipase/ Protease (Zenpep 5,000) 2 cap TIDWMEALS PO ; Start 08/10/19 at 12:00; Status UNV Methylprednisolone Sodium Succinate (SOLU-Medrol 40MG VIAL) 40 mg QD IV Last administered on 08/11/19at 11:45; Start 08/10/19 at 10:45; Stop 08/12/19 at 08:36; Status DC Tramadol HCl (Ultram) 50 mg QID PO Last administered on 08/13/19 08:43; Start 08/12/19 at 09:00 Morphine Sulfate (Morphine Sulfate) 4 mg 1X ONCE IV Last administered on 08/12/19 06:09; Start 08/12/19 at 06:00; Stop 08/12/19 at 06:04; Status DC Lidocaine (Lidoderm) 1 patch DAILY TD Last administered on 08/13/19at 08:43; Start 08/12/19 at 09:00 Miscellaneous (Lidoderm Patch Removal) 1 ea QHS MC Last administered on 08/13/19at 00:00; Start 08/12/19 at 21:00 Methylprednisolone Sodium Succinate (SOLU-Medrol 40MG VIAL) 30 mg DAILY IV Last administered on 08/13/19at 08:43; Start 08/12/19 at 10:45 Acetaminophen/ Hydrocodone Bitart (Lortab 5/325) 1 tab PRN Q4HRS PRN PO PAIN Last administered on 08/12/19at 20:39; Start 08/12/19 at 20:30 Hydralazine HCl (Apresoline Inj) 10 mg PRN Q4HRS PRN IVP ELEVATED BP, SEE COMMENTS Last administered on 08/13/19at 00:12; Start 08/13/19 at 00:00 Active Scripts Active Reported Unpzqoabnu-Tvpsvoetajj-Suu Tab (Gluc/Servando-Msm#2/C/D3/Fran/Born) 1 Each Tablet 1 Tab-Cap PO DAILY Effexor Xr (Venlafaxine Hcl) 150 Mg Cap.er.24h 1 Cap PO DAILY Levothyroxine Sodium 137 Mcg Tablet 1 Tab PO DAILY Lisinopril 5 Mg Tablet 1 Tab PO DAILY Protonix (Pantoprazole Sodium) 20 Mg Tablet.dr 1 Tab PO DAILY Stool Softener (Docusate Sodium) 50 Mg Capsule 50 Mg PO DAILY Tylenol Extra Strength (Acetaminophen) 500 Mg Tablet 500 Mg PO Q6HRS PRN Calcium 500 + Vit D 200 Caplet (Calcium Carbonate/Vitamin D3) 1 Each Tablet 1 Each PO DAILY Vitals/I & O Vital Sign - Last 24 Hours 08/12/19 08/12/19 08/12/19 08/12/19 08:40 08:40 09:33 11:00 Temp 97.9 97.9 Pulse 63 59 Resp 18 18 16 B/P (MAP) 155/85 128/86 (100) Pulse Ox 96 O2 Delivery Room Air Room Air Room Air 08/12/19 08/12/19 08/12/19 08/12/19 11:34 12:28 13:37 15:00 Temp 98.5 98.5 Pulse 75 Resp 16 16 16 B/P (MAP) 148/88 (108) Pulse Ox 94 93 O2 Delivery Room Air Room Air Room Air Room Air 08/12/19 08/12/19 08/12/19 08/12/19 16:27 16:27 17:05 17:59 Resp 16 16 16 16 O2 Delivery Room Air Room Air Room Air Room Air 08/12/19 08/12/19 08/12/19 08/12/19 19:00 19:40 19:44 19:44 Temp 97.7 97.7 Pulse 60 Resp 16 B/P (MAP) 144/79 (100) Pulse Ox 96 94 94 O2 Delivery Room Air Room Air Room Air Room Air 08/12/19 08/12/19 08/12/19 08/12/19 20:39 20:39 23:00 23:14 Temp 97.7 97.7 Pulse 58 Resp 16 B/P (MAP) 178/101 (126) Pulse Ox 92 O2 Delivery Room Air Room Air Room Air Room Air 08/12/19 08/13/19 08/13/19 08/13/19 23:14 00:10 00:12 00:12 Pulse 53 53 Resp 20 B/P (MAP) 201/91 (127) 201/91 O2 Delivery Room Air Room Air Room Air 08/13/19 08/13/19 08/13/19 08/13/19 02:27 03:00 06:14 07:00 Temp 98.6 98.5 98.6 98.5 Pulse 81 54 Resp 16 14 B/P (MAP) 156/77 (103) 174/98 (123) Pulse Ox 90 92 O2 Delivery Room Air Room Air Room Air Room Air 08/13/19 08/13/19 08/13/19 08/13/19 07:37 07:45 08:43 08:43 Pulse 54 Resp 16 B/P (MAP) 174/98 Pulse Ox 92 O2 Delivery Room Air Room Air Room Air 08/13/19 09:52 Resp 16 O2 Delivery Room Air Intake and Output 08/12/19 08/13/19 08/13/19 16:59 00:59 08:59 Intake Total 320 ml 180 ml Balance 320 ml 180 ml AZEB HOLLY MD Aug 13, 2019 10:10
--- NOTE | 2019-08-13 12:43 | PDOC ---
Subjective: Subjective: Back pain is worse today - "spasms" - epigastric and LUQ pain also - "I think they're connected." Tolerating diet. Hasn't stooled. again asks about having an MRI to check pancreas. Objective: Vital Signs: Vital Signs Date Time Temp Pulse Resp B/P (MAP) Pulse Ox O2 Delivery O2 Flow Rate FiO2 08/13/19 12:27 16 Room Air 08/13/19 11:21 98 08/13/19 11:00 97.9 55 166/91 (116) 97.9 PE: GEN: uncomfortable LUNGS: room air HEART: RRR ABD: vague tenderness epigastrium and LUQ - stable NEURO/PSYCH: A & O �3 A/P: Chronic abd and back pain - worse today - on pancreatic enzymes and PPI Pancreatic cyst - evaluated w/ recent EUS/biopsy (benign) at [facility] -- Again discussed w/ - not sure MRI of abd would give us more information considering recent EUS. Will review w/ Dr. Schuler. ?pain management Add Miralax, etc. ?need for IV steroids ANA BANG Aug 13, 2019 12:43
[2019-08-13] MEDS ORDERED: BISACODYL 5 MG TABLET.DR. PO PRN (12:45)
[2019-08-13] MEDS ORDERED: POLYETHYLENE GLYCOL 3350 17 GM PACKET. PO PRN (12:45)
[2019-08-13] MEDS: POLYETHYLENE GLYCOL 3350 17 GM PACKET. PO SCH (14:13)
[2019-08-13] MEDS: HYDROcodone/APAP 5/325MG 1 TAB TABLET PO PRN (20:10)
[2019-08-13] MEDS: PATCH REMOVAL. MC SCH (21:00)
[2019-08-14] MEDS: hydrALAZINE 20 MG/ML VIAL. IVP PRN (02:45)
[2019-08-14 02:55] VITALS: BP 196/90
[2019-08-14] MEDS: LEVOTHYROXINE 137 MCG TABLET PO SCH (06:20)
[2019-08-14] MEDS: PANTOPRAZOLE 40 MG TABLET.DR. PO SCH (06:20)
[2019-08-14] MEDS: HYDROcodone/APAP 5/325MG 1 TAB TABLET PO PRN (06:21)
[2019-08-14 07:00] VITALS: BP 158/93
--- NOTE | 2019-08-14 07:33 | PDOC ---
PROGRESS NOTES Chief Complaint Chief Complaint impression 1. Acute idioapthic pancreatitis r/o pseudocyst -non drinker, PAIN WORSE 08/13 Along the anterior margin of the pancreatic head is an indeterminate lesion measuring up to 3.5 cm with surrounding inflammatory stranding. This might represent acute on chronic pancreatitis, or possibly sequela of chronic pancreatitis such as calcified pseudocyst. 2. Morbid obesity BMI 46.4 3. WHeezy, seasonal allergies -better - flovent on dc, CXR NAD 4. HTN, hypothy - chronic stable 5,. HArd of hearing since - has amplifier 6. Skin lesions - bug bites/scratches no evidence of shingles 7. cxr c/w Linear opacities left lung base likely scarring/atelectasis. 8. morbid obesity 9. transaminitis 08/12 Not improving. Thoroughly evaluated in the past @ [facility] 08/[facility] pain worse, MRI DEFERRED TO GI [facility] c/w lots of stool, try enema fleetsx 1 37 min pt exam, chart review, > 50% of time spent with exam, chart review, pt care coordination History of Present Illness History of Present Illness Still epigastric pain radiating to back BUt ,lipase down to 466 NO fevers GI note reviewed, waiting for records [facility] re recent [facility] - i followed up with RN and audio visual secretary ( alreday signed a waiver to release records) Ambulating, at bedside She non toxic appearing but claims food made pain worse? NO more wheezing! - flovent on dc per pulmo note dry intertriginous areas - but might benefit from a shower? PLAN: COnt IVF - COnt ambulating ad gilberto REcheck lipase tmr/labs Dw TRial of pancreatic enzyme per gI recs - i put the order in if they are agreeable with my choice but can change as deemed appropriate ff up [facility] ct scan Vitals Vitals Vital Signs Date Time Temp Pulse Resp B/P (MAP) Pulse Ox O2 Delivery O2 Flow Rate FiO2 08/14/19 07:23 18 Room Air 08/14/19 02:55 98.6 60 196/90 (125) 95 98.6 08/13/19 15:13 3.0 Physical Exam General: Alert, Oriented X3, Cooperative, No acute distress, mild distress Heart: Regular rate, Normal S1, Normal S2 Lungs: Clear Abdomen: Normal bowel sounds, Soft, No tenderness, No hepatosplenomegaly, No masses Extremities: No clubbing, No cyanosis, No edema, Normal pulses, No tenderness/swelling Skin: No rashes, No breakdown, No significant lesion Labs LABS ndication: Pain. Left-sided abdominal pain. TECHNIQUE: Acute abdomen series. COMPARISON: None FINDINGS: Heart is normal in size. Lungs are clear. No pneumothorax or large pleural effusion. No subdiaphragmatic lucency to suggest large pneumoperitoneum. Visualized bony thorax within normal limits. No abnormally dilated bowel loops. Moderate diffuse colonic stool burden. Visualized bones are within normal limits. IMPRESSION: Moderate diffuse colonic stool burden. No radiographic evidence of high-grade bowel obstruction. Electronically signed by: Ezequiel Mon DO (08/14/2019 7:50 AM) [facility] Assessment and Plan Assessmemt and Plan Problems Medical Problems: (1) Acute pancreatitis Status: Acute (2) Dyslipidemia Status: Chronic (3) Elevated LFTs Status: Acute (4) Elevated lipase Status: Acute (5) Failure of outpatient treatment Status: Acute (6) HTN (hypertension) Status: Chronic (7) Hypothyroidism Status: Chronic (8) Intractable abdominal pain Status: Acute (9) Yeast cystitis Status: Acute Comment Review of Relevant I have reviewed the following items kira (where applicable) has been applied. Labs Microbiology 08/08/19 Urine Culture - Final, Complete 08/08/19 Urine Culture Result 1 (LEIGHTON) - Final, Complete Medications Current Medications Ondansetron HCl (Zofran) 4 mg 1X ONCE IV Last administered on 08/08/19at 20:33; Start 08/08/19 at 20:30; Stop 08/08/19 at 20:31; Status DC Famotidine (Pepcid Vial) 20 mg 1X ONCE IVP Last administered on 08/08/19at 20:33; Start 08/08/19 at 20:30; Stop 08/08/19 at 20:31; Status DC Ketorolac Tromethamine (Toradol 15mg Vial) 15 mg 1X ONCE IV Last administered on 08/08/19at 20:33; Start 08/08/19 at 20:15; Stop 08/08/19 at 20:16; Status DC Sodium Chloride 1,000 ml @ 1,000 mls/hr 1X ONCE IV Last administered on 08/08/19at 20:33; Start 08/08/19 at 20:30; Stop 08/08/19 at 21:29; Status DC Fluconazole (Diflucan) 200 mg 1X ONCE PO Last administered on 08/08/19 20:47; Start 08/08/19 at 21:00; Stop 08/08/19 at 21:01; Status DC Fentanyl Citrate (Fentanyl 2ml Vial) 50 mcg 1X ONCE IV Last administered on 08/08/19 21:51; Start 08/08/19 at 22:00; Stop 08/08/19 at 22:01; Status DC Ondansetron HCl (Zofran) 4 mg PRN Q8HRS PRN IV NAUSEA/VOMITING 1ST CHOICE; Start 08/08/19 at 21:45; Stop 08/09/19 at 08:01; Status DC Fentanyl Citrate (Fentanyl 2ml Vial) 50 mcg PRN Q2HRS PRN IV SEVERE PAIN 7-10 Last administered on 08/13/19at 22:50; Start 08/08/19 at 21:45 Sodium Chloride 1,000 ml @ 100 mls/hr Q10H IV Last administered on 08/13/19at 12:27; Start 08/09/19 at 08:00 Ondansetron HCl (Zofran) 4 mg PRN Q6HRS PRN IV NAUSEA/VOMITING 1ST CHOICE; Start 08/09/19 at 08:00; Stop 08/10/19 at 07:59; Status DC Tramadol HCl (Ultram) 50 mg PRN Q6HRS PRN PO MILD TO MODERATE PAIN Last administered on 08/11/19 20:51; Start 08/09/19 at 08:00; Stop 08/12/19 at 06:02 ; Status DC Acetaminophen (Tylenol) 500 mg PRN Q6HRS PRN PO MILD PAIN 1-3 Last administered on 08/11/19 17:39; Start 08/09/19 at 08:00 Calcium/Vitamin D (Oscal D 500mg/ 200uts) 1 tab DAILY PO Last administered on 08/13/19 08:43; Start 08/09/19 at 09:00 Levothyroxine Sodium (Synthroid) 137 mcg DAILY06 PO Last administered on 08/14/19 06:21; Start 08/09/19 at 10:30 Lisinopril (Prinivil) 5 mg DAILY PO Last administered on 9/20/19at 08:43; Start 08/09/19 at 09:00 Docusate Sodium (Colace) 100 mg DAILY PO Last administered on 08/13/19at 08:43; Start 08/09/19 at 09:00 Non-Formulary Medication (Gluc/Servando-Msm#2/ C/D3/Fran/Born (Gluco bjzrl-Vgsgydekkwl-Zyi Tab)) 1 tab-cap DAILY PO ; Start 08/09/19 at 09:00; Status UNV Pantoprazole Sodium (Protonix) 40 mg DAILYAC PO Last administered on 08/14/19at 06:21; Start 08/09/19 at 11:30 Venlafaxine HCl (Effexor) 50 mg TID PO Last administered on 08/13/19at 21:07; Start 08/09/19 at 09:00 Albuterol/ Ipratropium (Duoneb) 3 ml RTQID NEB Last administered on 08/13/19at 20:11; Start 08/09/19 at 12:00 Albuterol/ Ipratropium (Duoneb) 3 ml 1X ONCE NEB Last administered on 08/09/19at 09:08; Start 08/09/19 at 09:00; Stop 08/09/19 at 09:01; Status DC Methylprednisolone Sodium Succinate (SOLU-Medrol 125MG VIAL) 125 mg 1X ONCE IV Last administered on 08/09/19at 09:08; Start 08/09/19 at 09:00; Stop 08/09/19 at 09:01; Status DC Methylprednisolone Sodium Succinate (SOLU-Medrol 40MG VIAL) 40 mg Q8HRS IV ; Start 08/09/19 at 14:00; Stop 08/09/19 at 13:01; Status DC Guaifenesin (Robitussin Dm) 10 ml PRN Q6HRS PRN PO COUGH; Start 08/09/19 at 09:00; Stop 08/09/19 at 09:21; Status DC Guaifenesin (Robitussin Dm) 10 ml QID PO Last administered on 08/13/19at 21:07; Start 08/09/19 at 09:30 Albuterol Sulfate (Ventolin Neb Soln) 2.5 mg PRN Q4HRS PRN NEB SHORTNESS OF BREATH; Start 08/09/19 at 09:30 Methylprednisolone Sodium Succinate (SOLU-Medrol 40MG VIAL) 40 mg BID IV Last administered on 08/10/19at 08:45; Start 08/09/19 at 13:15; Stop 08/10/19 at 10:47; Status DC Budesonide (Pulmicort) 0.5 mg RTBID NEB Last administered on 08/13/19at 20:11; Start 08/09/19 at 20:00 Amylase/Lipase/ Protease (Zenpep 10,000) 2 cap TIDWMEALS PO Last administered on 08/13/19at 17:13; Start 08/09/19 at 17:00 Amylase/Lipase/ Protease (Zenpep 5,000) 2 cap TIDWMEALS PO ; Start 08/10/19 at 12:00; Status UNV Methylprednisolone Sodium Succinate (SOLU-Medrol 40MG VIAL) 40 mg QD IV Last administered on 08/11/19at 11:45; Start 08/10/19 at 10:45; Stop 08/12/19 at 08:36; Status DC Tramadol HCl (Ultram) 50 mg QID PO Last administered on 08/13/19at 21:07; Start 08/12/19 at 09:00 Morphine Sulfate (Morphine Sulfate) 4 mg 1X ONCE IV Last administered on at 06:09; Start 08/12/19 at 06:00; Stop 08/12/19 at 06:04; Status DC Lidocaine (Lidoderm) 1 patch DAILY TD Last administered on 08/13/19at 08:43; Start 08/12/19 at 09:00 Miscellaneous (Lidoderm Patch Removal) 1 ea QHS MC Last administered on 08/13/19 at 21:07; Start 08/12/19 at 21:00 Methylprednisolone Sodium Succinate (SOLU-Medrol 40MG VIAL) 30 mg DAILY IV Last administered on 08/13/19at 08:43; Start 08/12/19 at 10:45 Acetaminophen/ Hydrocodone Bitart (Lortab 5/325) 1 tab PRN Q4HRS PRN PO PAIN Last administered on 08/14/19at 06:21; Start 08/12/19 at 20:30 Hydralazine HCl (Apresoline Inj) 10 mg PRN Q4HRS PRN IVP ELEVATED BP, SEE COMMENTS Last administered on 08/14/19at 02:45; Start 08/13/19 at 00:00 Polyethylene Glycol (miraLAX PACKET) 17 gm PRN DAILY PRN PO CONSTIPATION; Start 08/13/19 at 12:45 Polyethylene Glycol (miraLAX PACKET) 17 gm DAILY PO Last administered on 08/13/19at 14:14; Start 08/13/19 at 13:00 Bisacodyl (Dulcolax Tab) 5 mg PRN DAILY PRN PO CONSTIPATION; Start 08/13/19 at 12:45 Active Scripts Active Reported Teedkcsyci-Doqasflvfzz-Udt Tab (Gluc/Servando-Msm#2/C/D3/Fran/Born) 1 Each Tablet 1 Tab-Cap PO DAILY Effexor Xr (Venlafaxine Hcl) 150 Mg Cap.er.24h 1 Cap PO DAILY Levothyroxine Sodium 137 Mcg Tablet 1 Tab PO DAILY Lisinopril 5 Mg Tablet 1 Tab PO DAILY Protonix (Pantoprazole Sodium) 20 Mg Tablet.dr 1 Tab PO DAILY Stool Softener (Docusate Sodium) 50 Mg Capsule 50 Mg PO DAILY Tylenol Extra Strength (Acetaminophen) 500 Mg Tablet 500 Mg PO Q6HRS PRN Calcium 500 + Vit D 200 Caplet (Calcium Carbonate/Vitamin D3) 1 Each Tablet 1 Each PO DAILY Vitals/I & O Vital Sign - Last 24 Hours 08/13/19 08/13/19 08/13/19 08/13/19 07:37 07:45 08:00 08:43 Pulse 54 B/P (MAP) 174/98 Pulse Ox 92 O2 Delivery Room Air Room Air Room Air 08/13/19 08/13/19 08/13/19 08/13/19 08:43 09:52 11:00 11:21 Temp 97.9 97.9 Pulse 55 Resp 16 16 14 B/P (MAP) 166/91 (116) Pulse Ox 96 98 O2 Delivery Room Air Room Air Room Air Room Air 08/13/19 08/13/19 08/13/19 08/13/19 11:30 12:27 12:27 13:48 Resp 22 16 16 16 O2 Delivery Room Air Room Air Room Air Room Air 08/13/19 08/13/19 08/13/19 08/13/19 14:14 15:00 15:13 15:14 Temp 98.5 98.5 Pulse 66 Resp 20 14 16 B/P (MAP) 159/90 (113) Pulse Ox 96 97 O2 Delivery Room Air Room Air Nasal Cannula Room Air O2 Flow Rate 3.0 08/13/19 08/13/19 08/13/19 08/13/19 17:13 18:15 19:00 20:00 Temp 97.4 97.4 Pulse 64 Resp 16 16 18 B/P (MAP) 148/82 (104) Pulse Ox 96 O2 Delivery Room Air Room Air Room Air Room Air 08/13/19 08/13/19 08/13/19 08/13/19 20:10 20:11 21:07 22:04 Resp 18 20 16 O2 Delivery Room Air Room Air Room Air Room Air 08/13/19 08/13/19 08/13/19 08/14/19 22:04 22:50 23:00 00:13 Temp 98.1 98.1 Pulse 57 Resp 16 16 18 14 B/P (MAP) 173/79 (110) Pulse Ox 94 O2 Delivery Room Air Room Air Room Air Room Air 08/14/19 08/14/19 08/14/19 08/14/19 02:45 02:55 06:21 07:23 Temp 98.6 98.6 Pulse 60 60 Resp 18 16 18 B/P (MAP) 196/90 196/90 (125) Pulse Ox 95 O2 Delivery Room Air Room Air Room Air Intake and Output 08/13/19 08/13/19 08/14/19 15:00 23:00 07:00 Intake Total 360 ml 220 ml Balance 360 ml 220 ml AZEB HOLLY MD Aug 14, 2019 07:33
--- NOTE | 2019-08-14 07:53 | RAD ---
Indication: Pain. Left-sided abdominal pain. TECHNIQUE: Acute abdomen series. COMPARISON: None FINDINGS: Heart is normal in size. Lungs are clear. No pneumothorax or large pleural effusion. No subdiaphragmatic lucency to suggest large pneumoperitoneum. Visualized bony thorax within normal limits. No abnormally dilated bowel loops. Moderate diffuse colonic stool burden. Visualized bones are within normal limits. IMPRESSION: Moderate diffuse colonic stool burden. No radiographic evidence of high-grade bowel obstruction. Electronically signed by: Ezequiel Mon DO (08/14/2019 7:50 AM) [facility]
[2019-08-14] MEDS: IV NORMAL SALINE 1000ML BAG 1,000 ML IV SCH (08:00)
[2019-08-14] MEDS: IPRATRPIUM/ALBUTEROL 0.5/2.5MG 3 ML NEBU. NEB SCH ×4 (08:40→19:34)
[2019-08-14] MEDS: BUDESONIDE 0.5 MG/2 ML NEBU. NEB SCH ×2 (08:40→19:34)
[2019-08-14 09:00] LABS: ALBUMIN 3.3 g/dL (3.4-5.0); ALBUMIN/GLOBULIN RATIO 1.1 (1.0-1.7); GFR 58.9; POTASSIUM 3.2 mmol/L (3.5-5.1); TOTAL BILIRUBIN 0.4 mg/dL (0.2-1.0); TOTAL PROTEIN 6.3 g/dL (6.4-8.2)
[2019-08-14] MEDS: LIDOCAINE (700MG/PATCH) PATCH. TD SCH (09:00)
[2019-08-14] MEDS: guaiFENesin DM 200MG/20MG 10 ML SYRUP PO SCH ×3 (09:00→17:00)
[2019-08-14 09:15] LABS: BASO % 0 % (0-3); EOS # 0.1 x10^3/uL (0.0-0.7); EOS % 1 % (0-3); HEMATOCRIT 36.4 % (36.0-47.0); HEMOGLOBIN 11.9 g/dL (12.0-15.5); LYMPH # 3.6 x10^3/uL (1.0-4.8); LYMPH % 24 % (24-48); MEAN CORPUSCULAR HEMOGLOBIN 29 pg (25-35); MEAN CORPUSCULAR HGB CONC 33 g/dL (31-37); MEAN CORPUSCULAR VOLUME 90 fL (79-100); MONO # 1.1 x10^3/uL (0.0-1.1); MONO % 7 % (0-9); NEUT # 10.4 x10^3/uL (1.8-7.7); NEUT % 69 % (31-73); PLATELET COUNT 216 x10^3/uL (140-400); RED BLOOD COUNT 4.05 x10^6/uL (3.50-5.40); RED CELL DISTRIBUTION WIDTH 13.9 % (11.5-14.5); WHITE BLOOD COUNT 15.2 x10^3/uL (4.0-11.0)
[2019-08-14] MEDS: CALCIUM CARB/VIT D3 500/200 TABLET. PO SCH (09:25)
[2019-08-14] MEDS: LIPASE/PROTEAS/AMYLAS 10/32/42 CAPSULE.DR. PO SCH ×3 (09:25→17:00)
[2019-08-14] MEDS: DOCUSATE SODIUM 100 MG CAPSULE. PO SCH (09:25)
[2019-08-14] MEDS: LISINOPRIL 5 MG TABLET. PO SCH (09:26)
[2019-08-14] MEDS: POLYETHYLENE GLYCOL 3350 17 GM PACKET. PO SCH (09:26)
[2019-08-14] MEDS: traMADol 50 MG TABLET PO SCH ×3 (09:26→17:01)
[2019-08-14] MEDS: VENLAFAXINE 50 MG TABLET. PO SCH ×3 (09:26→21:32)
[2019-08-14] MEDS: methylPREDNISolone SOD SUCC PF 40 MG/ML VIAL. IV SCH (09:33)
[2019-08-14 10:16] LABS: % BANDS 1 % (0-9); % EOS 1 % (0-5); % LYMPHS 30 % (24-48); % MONOS 5 % (0-10); % SEGS 63 % (35-66); NUCLEATED RBC 1; PLT ESTIMATE ADEQUATE (ADEQUATE)
[2019-08-14 10:17] LABS: POLYCHROMASIA OCCASIONAL
[2019-08-14 11:00] VITALS: BP 161/97
[2019-08-14] MEDS: fentaNYL PF VIAL 100 MCG/2 ML VIAL IV PRN (11:47)
[2019-08-14] MEDS ORDERED: SODIUM PHOSPHATES 19/7GM 133 ML ENEMA. PR PRN (12:30)
[2019-08-14] MEDS ORDERED: POTASSIUM CHLORIDE 20 MEQ TABLET.ER. PO ONE (12:30)
[2019-08-14] MEDS ORDERED: DOCUSATE SODIUM 283 MG/5 ML ENEMA. PR ONE (13:00)
[2019-08-14] MEDS: hydroCHLOROthiazide 12.5 MG CAPSULE PO SCH (13:35)
[2019-08-14] MEDS: LISINOPRIL 10 MG TABLET PO SCH (13:35)
[2019-08-14 15:00] VITALS: BP 162/94
[2019-08-14] MEDS ORDERED: MAGNESIUM CITRATE 296 ML SOLUTION. PO PRN (18:45)
[2019-08-14 19:00] VITALS: BP 146/81
[2019-08-14] MEDS: KETOROLAC 15 MG/ML VIAL. IV PRN (19:25)
[2019-08-14] MEDS ORDERED: guaiFENesin DM 200MG/20MG 10 ML SYRUP PO PRN (19:45)
[2019-08-14] MEDS: PATCH REMOVAL. MC SCH (21:00)
[2019-08-14 23:02] VITALS: BP 151/75
[2019-08-15 03:00] VITALS: BP 160/96
[2019-08-15] MEDS: KETOROLAC 15 MG/ML VIAL. IV PRN ×3 (05:00→21:52)
[2019-08-15 05:57] LABS: BASO % 0 % (0-3); EOS # 0.1 x10^3/uL (0.0-0.7); EOS % 0 % (0-3); HEMOGLOBIN 12.4 g/dL (12.0-15.5); LYMPH # 2.8 x10^3/uL (1.0-4.8); LYMPH % 16 % (24-48); MEAN CORPUSCULAR HEMOGLOBIN 29 pg (25-35); MEAN CORPUSCULAR HGB CONC 33 g/dL (31-37); MEAN CORPUSCULAR VOLUME 90 fL (79-100); MONO # 1.4 x10^3/uL (0.0-1.1); MONO % 8 % (0-9); NEUT # 13.4 x10^3/uL (1.8-7.7); NEUT % 76 % (31-73); PLATELET COUNT 246 x10^3/uL (140-400); RED BLOOD COUNT 4.24 x10^6/uL (3.50-5.40); RED CELL DISTRIBUTION WIDTH 14.1 % (11.5-14.5); WHITE BLOOD COUNT 17.7 x10^3/uL (4.0-11.0)
[2019-08-15] MEDS: LEVOTHYROXINE 137 MCG TABLET PO SCH (05:57)
[2019-08-15 06:19] LABS: ALBUMIN 3.3 g/dL (3.4-5.0); ALBUMIN/GLOBULIN RATIO 0.9 (1.0-1.7); CALCIUM 8.6 mg/dL (8.5-10.1); GFR 58.9; POTASSIUM 3.6 mmol/L (3.5-5.1); TOTAL BILIRUBIN 0.4 mg/dL (0.2-1.0)
[2019-08-15 07:00] VITALS: BP 145/84
[2019-08-15] MEDS: IPRATRPIUM/ALBUTEROL 0.5/2.5MG 3 ML NEBU. NEB SCH ×3 (07:18→15:29)
[2019-08-15] MEDS: BUDESONIDE 0.5 MG/2 ML NEBU. NEB SCH ×2 (07:18→19:44)
[2019-08-15] MEDS: LIPASE/PROTEAS/AMYLAS 10/32/42 CAPSULE.DR. PO SCH ×3 (08:00→17:00)
[2019-08-15] MEDS: PANTOPRAZOLE 40 MG TABLET.DR. PO SCH (08:00)
[2019-08-15] MEDS: POTASSIUM CHLORIDE 20 MEQ TABLET.ER. PO SCH (08:01)
--- NOTE | 2019-08-15 08:03 | PDOC ---
PROGRESS NOTES Chief Complaint Chief Complaint impression 1. Acute idioapthic pancreatitis r/o pseudocyst -non drinker, PAIN WORSE 08/13, narcotics reduced Along the anterior margin of the pancreatic head is an indeterminate lesion measuring up to 3.5 cm with surrounding inflammatory stranding. This might represent acute on chronic pancreatitis, or possibly sequela of chronic pancreatitis such as calcified pseudocyst. 2. Morbid obesity BMI 46.4 3. WHeezy, seasonal allergies -better - flovent on dc, CXR NAD 4. HTN, hypothy - chronic stable 5,. HArd of hearing since - has amplifier 6. Skin lesions - bug bites/scratches no evidence of shingles 7. cxr c/w Linear opacities left lung base likely scarring/atelectasis. 8. morbid obesity 9. transaminitis 10. UNCONTROLLED PAIN 11. LEUKOCYTOSIS 08/12 Not improving. Thoroughly evaluated in the past @ [facility] 08/13 pain worse, MRI DEFERRED TO GI kub c/w lots of stool, try enema fleetsx 1 08/14 08/15 large BM YESTERDAY, HELPED PAIN INLY ABOUT 5% WILL SONO TODAY ABD, CONT PAIN RX ADD IV ZOSYN, BLOOD CULTURE 36 min pt exam, chart review, > 50% of time spent with exam, chart review, pt care coordination History of Present Illness History of Present Illness Still epigastric pain radiating to back BUt ,lipase down to 466 NO fevers GI note reviewed, waiting for records [facility] re recent CT - i followed up with RN and national secretary ( khushboo signed a waiver to release records) Ambulating, at bedside She non toxic appearing but claims food made pain worse? NO more wheezing! - flovent on dc per pulmo note dry intertriginous areas - but might benefit from a shower? PLAN: COnt IVF - COnt ambulating ad gilberto REcheck lipase tmr/labs Dw TRial of pancreatic enzyme per [facility]I recs - i put the order in if they are agreeable with my choice but can change as deemed appropriate ff up [facility] ct scan Vitals Vitals Vital Signs Date Time Temp Pulse Resp B/P (MAP) Pulse Ox O2 Delivery O2 Flow Rate FiO2 08/15/19 07:21 97 Room Air 08/15/19 03:00 99.0 64 20 160/96 (117) 99.0 Physical Exam General: Alert, Oriented X3, Cooperative, No acute distress, mild distress Heart: Regular rate, Normal S1, Normal S2 Lungs: Clear Abdomen: Normal bowel sounds, Soft, No tenderness, No hepatosplenomegaly, No masses Extremities: No clubbing, No cyanosis, No edema, Normal pulses, No tenderness/swelling Skin: No rashes, No breakdown, No significant lesion Labs LABS Laboratory Tests Test 08/14/19 08:20 08/15/19 05:00 White Blood Count 15.2 x10^3/uL (4.0-11.0) 17.7 x10^3/uL (4.0-11.0) Red Blood Count 4.05 x10^6/uL (3.50-5.40) 4.24 x10^6/uL (3.50-5.40) Hemoglobin 11.9 g/dL (12.0-15.5) 12.4 g/dL (12.0-15.5) Hematocrit 36.4 % (36.0-47.0) 38.0 % (36.0-47.0) Mean Corpuscular Volume 90 fL (79-100) 90 fL (79-100) Mean Corpuscular Hemoglobin 29 pg (25-35) 29 pg (25-35) Mean Corpuscular Hemoglobin Concent 33 g/dL (31-37) 33 g/dL (31-37) Red Cell Distribution Width 13.9 % (11.5-14.5) 14.1 % (11.5-14.5) Platelet Count 216 x10^3/uL (140-400) 246 x10^3/uL (140-400) Neutrophils (%) (Auto) 69 % (31-73) 76 % (31-73) Lymphocytes (%) (Auto) 24 % (24-48) 16 % (24-48) Monocytes (%) (Auto) 7 % (0-9) 8 % (0-9) Eosinophils (%) (Auto) 1 % (0-3) 0 % (0-3) Basophils (%) (Auto) 0 % (0-3) 0 % (0-3) Neutrophils # (Auto) 10.4 x10^3/uL (1.8-7.7) 13.4 x10^3/uL (1.8-7.7) Lymphocytes # (Auto) 3.6 x10^3/uL (1.0-4.8) 2.8 x10^3/uL (1.0-4.8) Monocytes # (Auto) 1.1 x10^3/uL (0.0-1.1) 1.4 x10^3/uL (0.0-1.1) Eosinophils # (Auto) 0.1 x10^3/uL (0.0-0.7) 0.1 x10^3/uL (0.0-0.7) Basophils # (Auto) 0.0 x10^3/uL (0.0-0.2) 0.0 x10^3/uL (0.0-0.2) Segmented Neutrophils % 63 % (35-66) Band Neutrophils % 1 % (0-9) Lymphocytes % 30 % (24-48) Monocytes % 5 % (0-10) Eosinophils % 1 % (0-5) Nucleated Red Blood Cells 1 Platelet Estimate Adequate (ADEQUATE) Polychromasia Occasional Sodium Level 145 mmol/L (136-145) 144 mmol/L (136-145) Potassium Level 3.2 mmol/L (3.5-5.1) 3.6 mmol/L (3.5-5.1) Chloride Level 104 mmol/L (98-107) 104 mmol/L (98-107) Carbon Dioxide Level 33 mmol/L (21-32) 34 mmol/L (21-32) Anion Gap 8 (6-14) 6 (6-14) Blood Urea Nitrogen 16 mg/dL (7-20) 21 mg/dL (7-20) Creatinine 1.0 mg/dL (0.6-1.0) 1.0 mg/dL (0.6-1.0) Estimated GFR (Cockcroft-Gault) 58.9 58.9 BUN/Creatinine Ratio 16 (6-20) 21 (6-20) Glucose Level 100 mg/dL (70-99) 80 mg/dL (70-99) Calcium Level 8.0 mg/dL (8.5-10.1) 8.6 mg/dL (8.5-10.1) Total Bilirubin 0.4 mg/dL (0.2-1.0) 0.4 mg/dL (0.2-1.0) Aspartate Amino Transf (AST/SGOT) 24 U/L (15-37) 19 U/L (15-37) Alanine Aminotransferase (ALT/SGPT) 103 U/L (14-59) 91 U/L (14-59) Alkaline Phosphatase 176 U/L (46-116) 160 U/L (46-116) Total Protein 6.3 g/dL (6.4-8.2) 7.0 g/dL (6.4-8.2) Albumin 3.3 g/dL (3.4-5.0) 3.3 g/dL (3.4-5.0) Albumin/Globulin Ratio 1.1 (1.0-1.7) 0.9 (1.0-1.7) Assessment and Plan Assessmemt and Plan Problems Medical Problems: (1) Acute pancreatitis Status: Acute (2) Dyslipidemia Status: Chronic (3) Elevated LFTs Status: Acute (4) Elevated lipase Status: Acute (5) Failure of outpatient treatment Status: Acute (6) HTN (hypertension) Status: Chronic (7) Hypothyroidism Status: Chronic (8) Intractable abdominal pain Status: Acute (9) Yeast cystitis Status: Acute Comment Review of Relevant I have reviewed the following items kira (where applicable) has been applied. Labs Laboratory Tests Test 08/14/19 08:20 08/15/19 05:00 White Blood Count 15.2 x10^3/uL (4.0-11.0) 17.7 x10^3/uL (4.0-11.0) Red Blood Count 4.05 x10^6/uL (3.50-5.40) 4.24 x10^6/uL (3.50-5.40) Hemoglobin 11.9 g/dL (12.0-15.5) 12.4 g/dL (12.0-15.5) Hematocrit 36.4 % (36.0-47.0) 38.0 % (36.0-47.0) Mean Corpuscular Volume 90 fL (79-100) 90 fL (79-100) Mean Corpuscular Hemoglobin 29 pg (25-35) 29 pg (25-35) Mean Corpuscular Hemoglobin Concent 33 g/dL (31-37) 33 g/dL (31-37) Red Cell Distribution Width 13.9 % (11.5-14.5) 14.1 % (11.5-14.5) Platelet Count 216 x10^3/uL (140-400) 246 x10^3/uL (140-400) Neutrophils (%) (Auto) 69 % (31-73) 76 % (31-73) Lymphocytes (%) (Auto) 24 % (24-48) 16 % (24-48) Monocytes (%) (Auto) 7 % (0-9) 8 % (0-9) Eosinophils (%) (Auto) 1 % (0-3) 0 % (0-3) Basophils (%) (Auto) 0 % (0-3) 0 % (0-3) Neutrophils # (Auto) 10.4 x10^3/uL (1.8-7.7) 13.4 x10^3/uL (1.8-7.7) Lymphocytes # (Auto) 3.6 x10^3/uL (1.0-4.8) 2.8 x10^3/uL (1.0-4.8) Monocytes # (Auto) 1.1 x10^3/uL (0.0-1.1) 1.4 x10^3/uL (0.0-1.1) Eosinophils # (Auto) 0.1 x10^3/uL (0.0-0.7) 0.1 x10^3/uL (0.0-0.7) Basophils # (Auto) 0.0 x10^3/uL (0.0-0.2) 0.0 x10^3/uL (0.0-0.2) Segmented Neutrophils % 63 % (35-66) Band Neutrophils % 1 % (0-9) Lymphocytes % 30 % (24-48) Monocytes % 5 % (0-10) Eosinophils % 1 % (0-5) Nucleated Red Blood Cells 1 Platelet Estimate Adequate (ADEQUATE) Polychromasia Occasional Sodium Level 145 mmol/L (136-145) 144 mmol/L (136-145) Potassium Level 3.2 mmol/L (3.5-5.1) 3.6 mmol/L (3.5-5.1) Chloride Level 104 mmol/L (98-107) 104 mmol/L (98-107) Carbon Dioxide Level 33 mmol/L (21-32) 34 mmol/L (21-32) Anion Gap 8 (6-14) 6 (6-14) Blood Urea Nitrogen 16 mg/dL (7-20) 21 mg/dL (7-20) Creatinine 1.0 mg/dL (0.6-1.0) 1.0 mg/dL (0.6-1.0) Estimated GFR (Cockcroft-Gault) 58.9 58.9 BUN/Creatinine Ratio 16 (6-20) 21 (6-20) Glucose Level 100 mg/dL (70-99) 80 mg/dL (70-99) Calcium Level 8.0 mg/dL (8.5-10.1) 8.6 mg/dL (8.5-10.1) Total Bilirubin 0.4 mg/dL (0.2-1.0) 0.4 mg/dL (0.2-1.0) Aspartate Amino Transf (AST/SGOT) 24 U/L (15-37) 19 U/L (15-37) Alanine Aminotransferase (ALT/SGPT) 103 U/L (14-59) 91 U/L (14-59) Alkaline Phosphatase 176 U/L (46-116) 160 U/L (46-116) Total Protein 6.3 g/dL (6.4-8.2) 7.0 g/dL (6.4-8.2) Albumin 3.3 g/dL (3.4-5.0) 3.3 g/dL (3.4-5.0) Albumin/Globulin Ratio 1.1 (1.0-1.7) 0.9 (1.0-1.7) Laboratory Tests Test 08/14/19 08:20 08/15/19 05:00 White Blood Count 15.2 x10^3/uL (4.0-11.0) 17.7 x10^3/uL (4.0-11.0) Red Blood Count 4.05 x10^6/uL (3.50-5.40) 4.24 x10^6/uL (3.50-5.40) Hemoglobin 11.9 g/dL (12.0-15.5) 12.4 g/dL (12.0-15.5) Hematocrit 36.4 % (36.0-47.0) 38.0 % (36.0-47.0) Mean Corpuscular Volume 90 fL (79-100) 90 fL (79-100) Mean Corpuscular Hemoglobin 29 pg (25-35) 29 pg (25-35) Mean Corpuscular Hemoglobin Concent 33 g/dL (31-37) 33 g/dL (31-37) Red Cell Distribution Width 13.9 % (11.5-14.5) 14.1 % (11.5-14.5) Platelet Count 216 x10^3/uL (140-400) 246 x10^3/uL (140-400) Neutrophils (%) (Auto) 69 % (31-73) 76 % (31-73) Lymphocytes (%) (Auto) 24 % (24-48) 16 % (24-48) Monocytes (%) (Auto) 7 % (0-9) 8 % (0-9) Eosinophils (%) (Auto) 1 % (0-3) 0 % (0-3) Basophils (%) (Auto) 0 % (0-3) 0 % (0-3) Neutrophils # (Auto) 10.4 x10^3/uL (1.8-7.7) 13.4 x10^3/uL (1.8-7.7) Lymphocytes # (Auto) 3.6 x10^3/uL (1.0-4.8) 2.8 x10^3/uL (1.0-4.8) Monocytes # (Auto) 1.1 x10^3/uL (0.0-1.1) 1.4 x10^3/uL (0.0-1.1) Eosinophils # (Auto) 0.1 x10^3/uL (0.0-0.7) 0.1 x10^3/uL (0.0-0.7) Basophils # (Auto) 0.0 x10^3/uL (0.0-0.2) 0.0 x10^3/uL (0.0-0.2) Segmented Neutrophils % 63 % (35-66) Band Neutrophils % 1 % (0-9) Lymphocytes % 30 % (24-48) Monocytes % 5 % (0-10) Eosinophils % 1 % (0-5) Nucleated Red Blood Cells 1 Platelet Estimate Adequate (ADEQUATE) Polychromasia Occasional Sodium Level 145 mmol/L (136-145) 144 mmol/L (136-145) Potassium Level 3.2 mmol/L (3.5-5.1) 3.6 mmol/L (3.5-5.1) Chloride Level 104 mmol/L (98-107) 104 mmol/L (98-107) Carbon Dioxide Level 33 mmol/L (21-32) 34 mmol/L (21-32) Anion Gap 8 (6-14) 6 (6-14) Blood Urea Nitrogen 16 mg/dL (7-20) 21 mg/dL (7-20) Creatinine 1.0 mg/dL (0.6-1.0) 1.0 mg/dL (0.6-1.0) Estimated GFR (Cockcroft-Gault) 58.9 58.9 BUN/Creatinine Ratio 16 (6-20) 21 (6-20) Glucose Level 100 mg/dL (70-99) 80 mg/dL (70-99) Calcium Level 8.0 mg/dL (8.5-10.1) 8.6 mg/dL (8.5-10.1) Total Bilirubin 0.4 mg/dL (0.2-1.0) 0.4 mg/dL (0.2-1.0) Aspartate Amino Transf (AST/SGOT) 24 U/L (15-37) 19 U/L (15-37) Alanine Aminotransferase (ALT/SGPT) 103 U/L (14-59) 91 U/L (14-59) Alkaline Phosphatase 176 U/L (46-116) 160 U/L (46-116) Total Protein 6.3 g/dL (6.4-8.2) 7.0 g/dL (6.4-8.2) Albumin 3.3 g/dL (3.4-5.0) 3.3 g/dL (3.4-5.0) Albumin/Globulin Ratio 1.1 (1.0-1.7) 0.9 (1.0-1.7) Microbiology 08/08/19 Urine Culture - Final, Complete 08/08/19 Urine Culture Result 1 (LEIGHTON) - Final, Complete Medications Current Medications Ondansetron HCl (Zofran) 4 mg 1X ONCE IV Last administered on 08/08/19 20:33; Start 08/08/19 at 20:30; Stop 08/08/19 at 20:31; Status DC Famotidine (Pepcid Vial) 20 mg 1X ONCE IVP Last administered on 08/08/19at 20:33; Start 08/08/19 at 20:30; Stop 08/08/19 at 20:31; Status DC Ketorolac Tromethamine (Toradol 15mg Vial) 15 mg 1X ONCE IV Last administered on 08/08/19 20:33; Start 08/08/19 at 20:15; Stop 08/08/19 at 20:16; Status DC Sodium Chloride 1,000 ml @ 1,000 mls/hr 1X ONCE IV Last administered on 08/08/19at 20:33; Start 08/08/19 at 20:30; Stop 08/08/19 at 21:29; Status DC Fluconazole (Diflucan) 200 mg 1X ONCE PO Last administered on 08/08/19 20:47; Start 08/08/19 at 21:00; Stop 08/08/19 at 21:01; Status DC Fentanyl Citrate (Fentanyl 2ml Vial) 50 mcg 1X ONCE IV Last administered on 08/08/19at 21:51; Start 08/08/19 at 22:00; Stop 08/08/19 at 22:01; Status DC Ondansetron HCl (Zofran) 4 mg PRN Q8HRS PRN IV NAUSEA/VOMITING 1ST CHOICE; Start 08/08/19 at 21:45; Stop 08/09/19 at 08:01; Status DC Fentanyl Citrate (Fentanyl 2ml Vial) 50 mcg PRN Q2HRS PRN IV SEVERE PAIN 7-10 Last administered on 08/14/19at 11:47; Start 08/08/19 at 21:45; Status Hold Sodium Chloride 1,000 ml @ 100 mls/hr Q10H IV Last administered on 08/13/19at 12:27; Start 08/09/19 at 08:00; Status Hold Ondansetron HCl (Zofran) 4 mg PRN Q6HRS PRN IV NAUSEA/VOMITING 1ST CHOICE; Start 08/09/19 at 08:00; Stop 08/10/19 at 07:59; Status DC Tramadol HCl (Ultram) 50 mg PRN Q6HRS PRN PO MILD TO MODERATE PAIN Last administered on 08/11/19 20:51; Start 08/09/19 at 08:00; Stop 08/12/19 at 06:02; Status DC Acetaminophen (Tylenol) 500 mg PRN Q6HRS PRN PO MILD PAIN 1-3 Last administered on 08/11/19 17:39; Start 08/09/19 at 08:00 Calcium/Vitamin D (Oscal D 500mg/ 200uts) 1 tab DAILY PO Last administered on 08/14/19 09:27; Start 08/09/19 at 09:00 Levothyroxine Sodium (Synthroid) 137 mcg DAILY06 PO Last administered on 08/15/19 05:58; Start 08/09/19 at 10:30 Lisinopril (Prinivil) 5 mg DAILY PO Last administered on 08/14/19 09:27; Start 08/09/19 at 09:00; Stop 08/14/19 at 16:36; Status DC Docusate Sodium (Colace) 100 mg DAILY PO Last administered on 08/14/19 09:27; Start 08/09/19 at 09:00 Non-Formulary Medication (Gluc/Servando-Msm#2/ C/D3/Fran/Born (Ljmqsmfddj-Accbyplpsox-Ngj Tab)) 1 tab-cap DAILY PO ; Start 08/09/19 at 09:00; Status UNV Pantoprazole Sodium (Protonix) 40 mg DAILYAC PO Last administered on 08/14/19 06:21; Start 08/09/19 at 11:30 Venlafaxine HCl (Effexor) 50 mg TID PO Last administered on 08/14/19 21:33; Start 08/09/19 at 09:00 Albuterol/ Ipratropium (Duoneb) 3 ml RTQID NEB Last administered on 08/15/19 07:18; Start 08/09/19 at 12:00 Albuterol/ Ipratropium (Duoneb) 3 ml 1X ONCE NEB Last administered on 08/09/19 09:08; Start 08/09/19 at 09:00; Stop 08/09/19 at 09:01; Status DC Methylprednisolone Sodium Succinate (SOLU-Medrol 125MG VIAL) 125 mg 1X ONCE IV Last administered on 9/16/19at 09:08; Start 08/09/19 at 09:00; Stop 08/09/19 at 09:01; Status DC Methylprednisolone Sodium Succinate (SOLU-Medrol 40MG VIAL) 40 mg Q8HRS IV ; Start 08/09/19 at 14:00; Stop 08/09/19 at 13:01; Status DC Guaifenesin (Robitussin Dm) 10 ml PRN Q6HRS PRN PO COUGH; Start 08/09/19 at 09:00; Stop 08/09/19 at 09:21; Status DC Guaifenesin (Robitussin Dm) 10 ml QID PO Last administered on 08/13/19at 21:07; Start 08/09/19 at 09:30; Stop 08/14/19 at 19:42; Status DC Albuterol Sulfate (Ventolin Neb Soln) 2.5 mg PRN Q4HRS PRN NEB SHORTNESS OF BREATH; Start 08/09/19 at 09:30 Methylprednisolone Sodium Succinate (SOLU-Medrol 40MG VIAL) 40 mg BID IV Last administered on 08/10/19at 08:45; Start 08/09/19 at 13:15; Stop 08/10/19 at 10:47; Status DC Budesonide (Pulmicort) 0.5 mg RTBID NEB Last administered on 08/15/19at 07:18; Start 08/09/19 at 20:00 Amylase/Lipase/ Protease (Zenpep 10,000) 2 cap TIDWMEALS PO Last administered on 08/14/19at 17:01; Start 08/09/19 at 17:00 Amylase/Lipase/ Protease (Zenpep 5,000) 2 cap TIDWMEALS PO ; Start 08/10/19 at 12:00; Status UNV Methylprednisolone Sodium Succinate (SOLU-Medrol 40MG VIAL) 40 mg QD IV Last administered on 08/11/19at 11:45; Start 08/10/19 at 10:45; Stop 08/12/19 at 08:36; Status DC Tramadol HCl (Ultram) 50 mg QID PO Last administered on 08/14/19at 17:01; Start 08/12/19 at 09:00; Stop 08/14/19 at 18:36; Status DC Morphine Sulfate (Morphine Sulfate) 4 mg 1X ONCE IV Last administered on 08/12/19 06:09; Start 08/12/19 at 06:00; Stop 08/12/19 at 06:04; Status DC Lidocaine (Lidoderm) 1 patch DAILY TD Last administered on 08/13/19at 08:43; Start 08/12/19 at 09:00 Miscellaneous (Lidoderm Patch Removal) 1 ea QHS MC Last administered on 08/13/19at 21:07; Start 08/12/19 at 21:00 Methylprednisolone Sodium Succinate (SOLU-Medrol 40MG VIAL) 30 mg DAILY IV Last administered on 08/14/19at 09:35; Start 08/12/19 at 10:45 Acetaminophen/ Hydrocodone Bitart (Lortab 5/325) 1 tab PRN Q4HRS PRN PO MODERATE-SEVERE PAIN Last administered on 08/14/19at 06:21; Start 08/12/19 at 20:30; Status Hold Hydralazine HCl (Apresoline Inj) 10 mg PRN Q4HRS PRN IVP ELEVATED BP, SEE COMMENTS Last administered on 08/14/19at 02:45; Start 08/13/19 at 00:00 Polyethylene Glycol (miraLAX PACKET) 17 gm PRN DAILY PRN PO CONSTIPATION 2ND CHOICE; Start 08/13/19 at 12:45 Polyethylene Glycol (miraLAX PACKET) 17 gm DAILY PO Last administered on 08/14/19at 09:27; Start 08/13/19 at 13:00 Bisacodyl (Dulcolax Tab) 5 mg PRN DAILY PRN PO CONSTIPATION 1ST CHOICE; Start 08/13/19 at 12:45 Potassium Chloride (Klor-Con) 40 meq 1X ONCE PO Last administered on 08/14/19at 13:37; Start 08/14/19 at 12:30; Stop 08/14/19 at 12:31; Status DC Potassium Chloride (Klor-Con) 20 meq DAILYWBKFT PO ; Start 08/15/19 at 08:00 Sodium Monofluorophosphate (Fleet Adult) 133 ml DAILY PRN NC CONSTIPATION; Start 08/14/19 at 12:30 Docusate Sodium (Enemeez) 283 mg 1X ONCE NC Last administered on 08/14/19at 13:37; Start 08/14/19 at 13:00; Stop 08/14/19 at 13:01; Status DC Hydrochlorothiazide (Microzide) 12.5 mg DAILY PO Last administered on 08/14/19at 13:37; Start 08/14/19 at 13:00 Lisinopril (Prinivil) 10 mg DAILY PO Last administered on 08/14/19at 13:37; Start 08/14/19 at 13:00 Tramadol HCl (Ultram) 50 mg PRN QID PRN PO PAIN; Start 08/14/19 at 18:45 Magnesium Citrate (Citroma) 296 ml PRN 1X PRN PO CONSTIPATION Last administered on 08/14/19at 19:25; Start 08/14/19 at 18:45 Ketorolac Tromethamine (Toradol 15mg Vial) 15 mg PRN Q6HRS PRN IV PAIN Last administered on 08/15/19at 05:00; Start 08/14/19 at 18:45; Stop 08/19/19 at 18:44 Guaifenesin (Robitussin Dm) 10 ml PRN QID PRN PO cough; Start 08/14/19 at 19:45 Active Scripts Active Reported Iwdpxobeep-Feeyooxzywe-Ald Tab (Gluc/Servando-Msm#2/C/D3/Fran/Born) 1 Each Tablet 1 Tab-Cap PO DAILY Effexor Xr (Venlafaxine Hcl) 150 Mg Cap.er.24h 1 Cap PO DAILY Levothyroxine Sodium 137 Mcg Tablet 1 Tab PO DAILY Lisinopril 5 Mg Tablet 1 Tab PO DAILY Protonix (Pantoprazole Sodium) 20 Mg Tablet.dr 1 Tab PO DAILY Stool Softener (Docusate Sodium) 50 Mg Capsule 50 Mg PO DAILY Tylenol Extra Strength (Acetaminophen) 500 Mg Tablet 500 Mg PO Q6HRS PRN Calcium 500 + Vit D 200 Caplet (Calcium Carbonate/Vitamin D3) 1 Each Tablet 1 Each PO DAILY Vitals/I & O Vital Sign - Last 24 Hours 08/14/19 08/14/19 08/14/19 08/14/19 08:15 08:41 08:42 09:27 Resp 16 Pulse Ox 97 97 O2 Delivery Room Air Room Air Room Air Room Air 08/14/19 08/14/19 08/14/19 08/14/19 09:27 11:00 11:28 11:47 Temp 98.0 98.0 Pulse 63 61 Resp 18 16 B/P (MAP) 158/93 161/97 (118) Pulse Ox 95 O2 Delivery Room Air Room Air Room Air 08/14/19 08/14/19 08/14/19 08/14/19 12:27 12:27 13:37 13:37 Pulse 61 Resp 16 16 16 B/P (MAP) 161/97 O2 Delivery Room Air Room Air Room Air 08/14/19 08/14/19 08/14/19 08/14/19 15:00 15:45 16:35 17:01 Temp 98.0 98.0 Pulse 64 Resp 18 16 16 B/P (MAP) 162/94 (116) Pulse Ox 95 97 O2 Delivery Room Air Room Air Room Air Room Air 08/14/19 08/14/19 08/14/19 08/14/19 19:00 19:35 19:50 23:02 Temp 97.4 98.0 97.4 98.0 Pulse 55 59 Resp 18 18 B/P (MAP) 146/81 (102) 151/75 (100) Pulse Ox 100 97 94 O2 Delivery Room Air Room Air Room Air 08/15/19 08/15/19 08/15/19 03:00 07:20 07:21 Temp 99.0 99.0 Pulse 64 Resp 20 B/P (MAP) 160/96 (117) Pulse Ox 95 97 97 O2 Delivery Room Air Room Air Room Air Intake and Output 08/14/19 08/14/19 08/15/19 15:00 23:00 07:00 Intake Total 580 ml 400 ml 780 ml Balance 580 ml 400 ml 780 ml AZEB HOLLY MD Aug 15, 2019 08:03
[2019-08-15] MEDS: LIDOCAINE (700MG/PATCH) PATCH. TD SCH (09:00)
[2019-08-15] MEDS: POLYETHYLENE GLYCOL 3350 17 GM PACKET. PO SCH (09:00)
[2019-08-15] MEDS: DOCUSATE SODIUM 100 MG CAPSULE. PO SCH (09:30)
[2019-08-15] MEDS: CALCIUM CARB/VIT D3 500/200 TABLET. PO SCH (09:31)
[2019-08-15] MEDS: VENLAFAXINE 50 MG TABLET. PO SCH ×3 (09:31→21:17)
[2019-08-15] MEDS: traMADol 50 MG TABLET PO PRN ×3 (09:31→21:19)
[2019-08-15] MEDS: LISINOPRIL 10 MG TABLET PO SCH (09:31)
[2019-08-15] MEDS: methylPREDNISolone SOD SUCC PF 40 MG/ML VIAL. IV SCH (09:32)
[2019-08-15] MEDS: hydroCHLOROthiazide 12.5 MG CAPSULE PO SCH (09:32)
[2019-08-15 11:00] VITALS: BP 159/89
[2019-08-15] MEDS: PIPERACILLIN/TAZOBACTAM 3.375 GM in IV NORMAL SALINE 50ML 50 ML IV SCH ×2 (12:23→18:14)
[2019-08-15 15:00] VITALS: BP 133/73
[2019-08-15] MEDS: ALBUTEROL SULFATE 2.5 MG/3 ML NEBU. NEB PRN (19:44)
--- NOTE | 2019-08-15 20:06 | RAD ---
ABDOMEN LTD: 08/15/2019 12:05 PM Indication: 49 years old Female. Pain, pseudocyst. Comparison: None. TECHNIQUE: Sonographic evaluation of the right upper quadrant was performed utilizing grayscale and color Doppler imaging. FINDINGS: Liver: Homogenous normal echotexture.. There is hepatopedal flow within the portal venous system. Right hepatic lobe measures 16.6 cm. Biliary system: CBD measures 5.3 mm. There is no intrahepatic or extrahepatic biliary dilatation. Gallbladder: Cholecystectomy. Pancreas: Cystic area within the head of pancreas measures 1.6 x 1.5 x 1.4 cm with associated calcification. Right kidney: 9.3 x 4.4 x 4.2 cm. No hydronephrosis. Normal echotexture without focal mass or renal calculus. Free fluid:None. IMPRESSION: 1. Redemonstration of peripherally calcified area within the neck/head of pancreas measuring 1.6 x 1.5 x 1.4 cm by ultrasound. This finding is not significantly changed given differences in modality. Short interval follow-up may be of benefit. Electronically signed by: Shamika Epstein MD (08/15/2019 8:03 PM) [id number]
[2019-08-15 20:25] VITALS: BP 144/80
[2019-08-15] MEDS: PATCH REMOVAL. MC SCH (21:00)
[2019-08-15] MEDS: LACTOBACILLUS RHAMNOSUS GG 1 CAPSULE. PO SCH (21:17)
[2019-08-16] VITALS (7 sets, daily range): BP systolic 134–158; BP diastolic 74–93
[2019-08-16] MEDS: PIPERACILLIN/TAZOBACTAM 3.375 GM in IV NORMAL SALINE 50ML 50 ML IV SCH ×5 (00:05→23:49)
[2019-08-16 03:51] LABS: BASO # 0.1 x10^3/uL (0.0-0.2); BASO % 0 % (0-3); EOS % 0 % (0-3); HEMATOCRIT 36.3 % (36.0-47.0); HEMOGLOBIN 11.9 g/dL (12.0-15.5); LYMPH # 2.3 x10^3/uL (1.0-4.8); LYMPH % 12 % (24-48); MEAN CORPUSCULAR HEMOGLOBIN 30 pg (25-35); MEAN CORPUSCULAR HGB CONC 33 g/dL (31-37); MEAN CORPUSCULAR VOLUME 91 fL (79-100); MONO # 1.6 x10^3/uL (0.0-1.1); MONO % 8 % (0-9); NEUT # 15.3 x10^3/uL (1.8-7.7); NEUT % 79 % (31-73); PLATELET COUNT 206 x10^3/uL (140-400); RED BLOOD COUNT 4.01 x10^6/uL (3.50-5.40); RED CELL DISTRIBUTION WIDTH 14.4 % (11.5-14.5); WHITE BLOOD COUNT 19.3 x10^3/uL (4.0-11.0)
[2019-08-16 04:13] LABS: ALBUMIN 2.8 g/dL (3.4-5.0); ALBUMIN/GLOBULIN RATIO 0.9 (1.0-1.7); CREATININE 1.2 mg/dL (0.6-1.0); GFR 47.7; POTASSIUM 4.5 mmol/L (3.5-5.1); TOTAL BILIRUBIN 0.4 mg/dL (0.2-1.0)
[2019-08-16] MEDS: traMADol 50 MG TABLET PO PRN ×3 (05:15→20:59)
[2019-08-16] MEDS: LEVOTHYROXINE 137 MCG TABLET PO SCH (06:03)
[2019-08-16] MEDS: PANTOPRAZOLE 40 MG TABLET.DR. PO SCH (07:50)
[2019-08-16] MEDS: KETOROLAC 15 MG/ML VIAL. IV PRN ×3 (07:50→20:59)
[2019-08-16] MEDS: BUDESONIDE 0.5 MG/2 ML NEBU. NEB SCH ×2 (08:13→20:20)
[2019-08-16] MEDS: LIDOCAINE (700MG/PATCH) PATCH. TD SCH (09:00)
[2019-08-16] MEDS: POLYETHYLENE GLYCOL 3350 17 GM PACKET. PO SCH (09:00)
[2019-08-16] MEDS: LACTOBACILLUS RHAMNOSUS GG 1 CAPSULE. PO SCH ×2 (09:07→20:59)
[2019-08-16] MEDS: LIPASE/PROTEAS/AMYLAS 10/32/42 CAPSULE.DR. PO SCH ×3 (09:08→17:09)
[2019-08-16] MEDS: DOCUSATE SODIUM 100 MG CAPSULE. PO SCH (09:08)
[2019-08-16] MEDS: POTASSIUM CHLORIDE 20 MEQ TABLET.ER. PO SCH (09:08)
[2019-08-16] MEDS: CALCIUM CARB/VIT D3 500/200 TABLET. PO SCH (09:08)
[2019-08-16] MEDS: hydroCHLOROthiazide 12.5 MG CAPSULE PO SCH (09:08)
[2019-08-16] MEDS: LISINOPRIL 10 MG TABLET PO SCH (09:09)
[2019-08-16] MEDS: VENLAFAXINE 50 MG TABLET. PO SCH ×3 (09:09→21:00)
[2019-08-16] MEDS: methylPREDNISolone SOD SUCC PF 40 MG/ML VIAL. IV SCH (09:10)
--- NOTE | 2019-08-16 09:51 | PDOC ---
PROGRESS NOTES Chief Complaint Chief Complaint impression 1. Acute idioapthic pancreatitis r/o pseudocyst -non drinker, PAIN WORSE 08/13, narcotics reduced Along the anterior margin of the pancreatic head is an indeterminate lesion measuring up to 3.5 cm with surrounding inflammatory stranding. This might represent acute on chronic pancreatitis, or possibly sequela of chronic pancreatitis such as calcified pseudocyst. peripherally calcified area within the neck/head of pancreas measuring 1.6 x 1.5 x 1.4 cm by ultrasound 08/15 2. Morbid obesity BMI 46.4 3. WHeezy, seasonal allergies -better - flovent on dc, CXR NAD 4. HTN, hypothy - chronic stable 5,. HArd of hearing since - has amplifier 6. Skin lesions - bug bites/scratches no evidence of shingles 7. cxr c/w Linear opacities left lung base likely scarring/atelectasis. 8. morbid obesity 9. transaminitis 10. UNCONTROLLED PAIN 11. LEUKOCYTOSIS 08/12 Not improving. Thoroughly evaluated in the past @ [facility] 08/13 pain worse, MRI DEFERRED TO GI kub c/w lots of stool, try enema fleetsx 1 08/14 08/15 large BM YESTERDAY, HELPED PAIN ONLY ABOUT 5% WILL SONO TODAY ABD, CONT PAIN RX ADD IV ZOSYN, BLOOD CULTURE 26 min pt exam, chart review, > 50% of time spent with exam, chart review, pt care coordination History of Present Illness History of Present Illness Still epigastric pain radiating to back BUt ,lipase down to 466 NO fevers GI note reviewed, waiting for records [facility] re recent CT - i followed up with RN and engineer/conductor ( khushboo signed a waiver to release records) Ambulating, at bedside She non toxic appearing but claims food made pain worse? NO more wheezing! - flovent on dc per pulmo note dry intertriginous areas - but might benefit from a shower? PLAN: COnt IVF - COnt ambulating ad gilberto REcheck lipase tmr/labs Dw TRial of pancreatic enzyme per [facility]I recs - i put the order in if they are agreeable with my choice but can change as deemed appropriate ff up [facility] ct scan Vitals Vitals Vital Signs Date Time Temp Pulse Resp B/P (MAP) Pulse Ox O2 Delivery O2 Flow Rate FiO2 08/16/19 09:12 60 154/93 08/16/19 08:14 96 Room Air 08/16/19 07:00 98.5 18 98.5 Physical Exam General: Alert, Oriented X3, Cooperative, No acute distress, mild distress Heart: Regular rate, Normal S1, Normal S2 Lungs: Clear Abdomen: Normal bowel sounds, Soft, No tenderness, No hepatosplenomegaly, No masses Extremities: No clubbing, No cyanosis, No edema, Normal pulses, No tenderness/swelling Skin: No rashes, No breakdown, No significant lesion Labs LABS STATUS: ADM IN ORD. PHYSICIAN: AZEB HOLLY MD REASON: PAIN, PSEUDOCYST PROCEDURE: ABDOMEN LTD ABDOMEN LTD: 08/15/2019 12:05 PM Indication: 49 years old Female. Pain, pseudocyst. Comparison: None. TECHNIQUE: Sonographic evaluation of the right upper quadrant was performed utilizing grayscale and color Doppler imaging. FINDINGS: Liver: Homogenous normal echotexture.. There is hepatopedal flow within the portal venous system. Right hepatic lobe measures 16.6 cm. Biliary system: CBD measures 5.3 mm. There is no intrahepatic or extrahepatic biliary dilatation. Gallbladder: Cholecystectomy. Pancreas: Cystic area within the head of pancreas measures 1.6 x 1.5 x 1.4 cm with associated calcification. Right kidney: 9.3 x 4.4 x 4.2 cm. No hydronephrosis. Normal echotexture without focal mass or renal calculus. Free fluid:None. IMPRESSION: 1. Redemonstration of peripherally calcified area within the neck/head of pancreas measuring 1.6 x 1.5 x 1.4 cm by ultrasound. This finding is not significantly changed given differences in modality. Short interval follow-up may be of benefit. Electronically signed by: Shamika Epstein MD (08/15/2019 8:03 PM) [facility] Laboratory Tests Test 08/16/19 03:30 White Blood Count 19.3 x10^3/uL (4.0-11.0) Red Blood Count 4.01 x10^6/uL (3.50-5.40) Hemoglobin 11.9 g/dL (12.0-15.5) Hematocrit 36.3 % (36.0-47.0) Mean Corpuscular Volume 91 fL (79-100) Mean Corpuscular Hemoglobin 30 pg (25-35) Mean Corpuscular Hemoglobin Concent 33 g/dL (31-37) Red Cell Distribution Width 14.4 % (11.5-14.5) Platelet Count 206 x10^3/uL (140-400) Neutrophils (%) (Auto) 79 % (31-73) Lymphocytes (%) (Auto) 12 % (24-48) Monocytes (%) (Auto) 8 % (0-9) Eosinophils (%) (Auto) 0 % (0-3) Basophils (%) (Auto) 0 % (0-3) Neutrophils # (Auto) 15.3 x10^3/uL (1.8-7.7) Lymphocytes # (Auto) 2.3 x10^3/uL (1.0-4.8) Monocytes # (Auto) 1.6 x10^3/uL (0.0-1.1) Eosinophils # (Auto) 0.0 x10^3/uL (0.0-0.7) Basophils # (Auto) 0.1 x10^3/uL (0.0-0.2) Erythrocyte Sedimentation Rate 11 (0-25) Sodium Level 143 mmol/L (136-145) Potassium Level 4.5 mmol/L (3.5-5.1) Chloride Level 105 mmol/L (98-107) Carbon Dioxide Level 33 mmol/L (21-32) Anion Gap 5 (6-14) Blood Urea Nitrogen 26 mg/dL (7-20) Creatinine 1.2 mg/dL (0.6-1.0) Estimated GFR (Cockcroft-Gault) 47.7 BUN/Creatinine Ratio 22 (6-20) Glucose Level 125 mg/dL (70-99) Calcium Level 8.0 mg/dL (8.5-10.1) Total Bilirubin 0.4 mg/dL (0.2-1.0) Aspartate Amino Transf (AST/SGOT) 20 U/L (15-37) Alanine Aminotransferase (ALT/SGPT) 58 U/L (14-59) Alkaline Phosphatase 140 U/L (46-116) Total Protein 6.0 g/dL (6.4-8.2) Albumin 2.8 g/dL (3.4-5.0) Albumin/Globulin Ratio 0.9 (1.0-1.7) Assessment and Plan Assessmemt and Plan Problems Medical Problems: (1) Acute pancreatitis Status: Acute (2) Dyslipidemia Status: Chronic (3) Elevated LFTs Status: Acute (4) Elevated lipase Status: Acute (5) Failure of outpatient treatment Status: Acute (6) HTN (hypertension) Status: Chronic (7) Hypothyroidism Status: Chronic (8) Intractable abdominal pain Status: Acute (9) Yeast cystitis Status: Acute Comment Review of Relevant I have reviewed the following items kira (where applicable) has been applied. Labs Laboratory Tests Test 08/15/19 05:00 08/16/19 03:30 White Blood Count 17.7 x10^3/uL (4.0-11.0) 19.3 x10^3/uL (4.0-11.0) Red Blood Count 4.24 x10^6/uL (3.50-5.40) 4.01 x10^6/uL (3.50-5.40) Hemoglobin 12.4 g/dL (12.0-15.5) 11.9 g/dL (12.0-15.5) Hematocrit 38.0 % (36.0-47.0) 36.3 % (36.0-47.0) Mean Corpuscular Volume 90 fL (79-100) 91 fL (79-100) Mean Corpuscular Hemoglobin 29 pg (25-35) 30 pg (25-35) Mean Corpuscular Hemoglobin Concent 33 g/dL (31-37) 33 g/dL (31-37) Red Cell Distribution Width 14.1 % (11.5-14.5) 14.4 % (11.5-14.5) Platelet Count 246 x10^3/uL (140-400) 206 x10^3/uL (140-400) Neutrophils (%) (Auto) 76 % (31-73) 79 % (31-73) Lymphocytes (%) (Auto) 16 % (24-48) 12 % (24-48) Monocytes (%) (Auto) 8 % (0-9) 8 % (0-9) Eosinophils (%) (Auto) 0 % (0-3) 0 % (0-3) Basophils (%) (Auto) 0 % (0-3) 0 % (0-3) Neutrophils # (Auto) 13.4 x10^3/uL (1.8-7.7) 15.3 x10^3/uL (1.8-7.7) Lymphocytes # (Auto) 2.8 x10^3/uL (1.0-4.8) 2.3 x10^3/uL (1.0-4.8) Monocytes # (Auto) 1.4 x10^3/uL (0.0-1.1) 1.6 x10^3/uL (0.0-1.1) Eosinophils # (Auto) 0.1 x10^3/uL (0.0-0.7) 0.0 x10^3/uL (0.0-0.7) Basophils # (Auto) 0.0 x10^3/uL (0.0-0.2) 0.1 x10^3/uL (0.0-0.2) Sodium Level 144 mmol/L (136-145) 143 mmol/L (136-145) Potassium Level 3.6 mmol/L (3.5-5.1) 4.5 mmol/L (3.5-5.1) Chloride Level 104 mmol/L (98-107) 105 mmol/L (98-107) Carbon Dioxide Level 34 mmol/L (21-32) 33 mmol/L (21-32) Anion Gap 6 (6-14) 5 (6-14) Blood Urea Nitrogen 21 mg/dL (7-20) 26 mg/dL (7-20) Creatinine 1.0 mg/dL (0.6-1.0) 1.2 mg/dL (0.6-1.0) Estimated GFR (Cockcroft-Gault) 58.9 47.7 BUN/Creatinine Ratio 21 (6-20) 22 (6-20) Glucose Level 80 mg/dL (70-99) 125 mg/dL (70-99) Calcium Level 8.6 mg/dL (8.5-10.1) 8.0 mg/dL (8.5-10.1) Total Bilirubin 0.4 mg/dL (0.2-1.0) 0.4 mg/dL (0.2-1.0) Aspartate Amino Transf (AST/SGOT) 19 U/L (15-37) 20 U/L (15-37) Alanine Aminotransferase (ALT/SGPT) 91 U/L (14-59) 58 U/L (14-59) Alkaline Phosphatase 160 U/L (46-116) 140 U/L (46-116) Total Protein 7.0 g/dL (6.4-8.2) 6.0 g/dL (6.4-8.2) Albumin 3.3 g/dL (3.4-5.0) 2.8 g/dL (3.4-5.0) Albumin/Globulin Ratio 0.9 (1.0-1.7) 0.9 (1.0-1.7) Erythrocyte Sedimentation Rate 11 (0-25) Laboratory Tests Test 08/16/19 03:30 White Blood Count 19.3 x10^3/uL (4.0-11.0) Red Blood Count 4.01 x10^6/uL (3.50-5.40) Hemoglobin 11.9 g/dL (12.0-15.5) Hematocrit 36.3 % (36.0-47.0) Mean Corpuscular Volume 91 fL (79-100) Mean Corpuscular Hemoglobin 30 pg (25-35) Mean Corpuscular Hemoglobin Concent 33 g/dL (31-37) Red Cell Distribution Width 14.4 % (11.5-14.5) Platelet Count 206 x10^3/uL (140-400) Neutrophils (%) (Auto) 79 % (31-73) Lymphocytes (%) (Auto) 12 % (24-48) Monocytes (%) (Auto) 8 % (0-9) Eosinophils (%) (Auto) 0 % (0-3) Basophils (%) (Auto) 0 % (0-3) Neutrophils # (Auto) 15.3 x10^3/uL (1.8-7.7) Lymphocytes # (Auto) 2.3 x10^3/uL (1.0-4.8) Monocytes # (Auto) 1.6 x10^3/uL (0.0-1.1) Eosinophils # (Auto) 0.0 x10^3/uL (0.0-0.7) Basophils # (Auto) 0.1 x10^3/uL (0.0-0.2) Erythrocyte Sedimentation Rate 11 (0-25) Sodium Level 143 mmol/L (136-145) Potassium Level 4.5 mmol/L (3.5-5.1) Chloride Level 105 mmol/L (98-107) Carbon Dioxide Level 33 mmol/L (21-32) Anion Gap 5 (6-14) Blood Urea Nitrogen 26 mg/dL (7-20) Creatinine 1.2 mg/dL (0.6-1.0) Estimated GFR (Cockcroft-Gault) 47.7 BUN/Creatinine Ratio 22 (6-20) Glucose Level 125 mg/dL (70-99) Calcium Level 8.0 mg/dL (8.5-10.1) Total Bilirubin 0.4 mg/dL (0.2-1.0) Aspartate Amino Transf (AST/SGOT) 20 U/L (15-37) Alanine Aminotransferase (ALT/SGPT) 58 U/L (14-59) Alkaline Phosphatase 140 U/L (46-116) Total Protein 6.0 g/dL (6.4-8.2) Albumin 2.8 g/dL (3.4-5.0) Albumin/Globulin Ratio 0.9 (1.0-1.7) Microbiology 08/08/19 Urine Culture - Final, Complete 08/08/19 Urine Culture Result 1 (LEIGHTON) - Final, Complete Medications Current Medications Ondansetron HCl (Zofran) 4 mg 1X ONCE IV Last administered on 08/08/19at 20:33; Start 08/08/19 at 20:30; Stop 08/08/19 at 20:31; Status DC Famotidine (Pepcid Vial) 20 mg 1X ONCE IVP Last administered on 08/08/19 20:33; Start 08/08/19 at 20:30; Stop 08/08/19 at 20:31; Status DC Ketorolac Tromethamine (Toradol 15mg Vial) 15 mg 1X ONCE IV Last administered on 08/08/19 20:33; Start 08/08/19 at 20:15; Stop 08/08/19 at 20:16; Status DC Sodium Chloride 1,000 ml @ 1,000 mls/hr 1X ONCE IV Last administered on 08/08/19at 20:33; Start 08/08/19 at 20:30; Stop 08/08/19 at 21:29; Status DC Fluconazole (Diflucan) 200 mg 1X ONCE PO Last administered on 08/08/19 20:47; Start 08/08/19 at 21:00; Stop 08/08/19 at 21:01; Status DC Fentanyl Citrate (Fentanyl 2ml Vial) 50 mcg 1X ONCE IV Last administered on 08/08/19 21:51; Start 08/08/19 at 22:00; Stop 08/08/19 at 22:01; Status DC Ondansetron HCl (Zofran) 4 mg PRN Q8HRS PRN IV NAUSEA/VOMITING 1ST CHOICE; Start 08/08/19 at 21:45; Stop 08/09/19 at 08:01; Status DC Fentanyl Citrate (Fentanyl 2ml Vial) 50 mcg PRN Q2HRS PRN IV SEVERE PAIN 7-10 Last administered on 08/14/19 11:47; Start 08/08/19 at 21:45; Stop 08/15/19 at 15:56; Status DC Sodium Chloride 1,000 ml @ 100 mls/hr Q10H IV Last administered on 08/13/19 12:27; Start 08/09/19 at 08:00; Stop 08/15/19 at 15:56; Status DC Ondansetron HCl (Zofran) 4 mg PRN Q6HRS PRN IV NAUSEA/VOMITING 1ST CHOICE; Start 08/09/19 at 08:00; Stop 08/10/19 at 07:59; Status DC Tramadol HCl (Ultram) 50 mg PRN Q6HRS PRN PO MILD TO MODERATE PAIN Last administered on 08/11/19 20:51; Start 08/09/19 at 08:00; Stop 08/12/19 at 06:02; Status DC Acetaminophen (Tylenol) 500 mg PRN Q6HRS PRN PO MILD PAIN 1-3 Last administered on 08/11/19 17:39; Start 08/09/19 at 08:00 Calcium/Vitamin D (Oscal D 500mg/ 200uts) 1 tab DAILY PO Last administered on 08/16/19 09:12; Start 08/09/19 at 09:00 Levothyroxine Sodium (Synthroid) 137 mcg DAILY06 PO Last administered on 06:03; Start 08/09/19 at 10:30 Lisinopril (Prinivil) 5 mg DAILY PO Last administered on 9/21/19at 09:27; Start 08/09/19 at 09:00; Stop 08/14/19 at 16:36; Status DC Docusate Sodium (Colace) 100 mg DAILY PO Last administered on 08/16/19at 09:12; Start 08/09/19 at 09:00 Non-Formulary Medication (Gluc/Servando-Msm#2/ C/D3/Fran/Born (Khgsrlodmc-Haqcrmqmyqx-Hcg Tab)) 1 tab-cap DAILY PO ; Start 08/09/19 at 09:00; Status UNV Pantoprazole Sodium (Protonix) 40 mg DAILYAC PO Last administered on 08/16/19at 07:52; Start 08/09/19 at 11:30 Venlafaxine HCl (Effexor) 50 mg TID PO Last administered on 08/16/19at 09:12; Start 08/09/19 at 09:00 Albuterol/ Ipratropium (Duoneb) 3 ml RTQID NEB Last administered on 08/15/19at 15:29; Start 08/09/19 at 12:00; Stop 08/15/19 at 16:14; Status DC Albuterol/ Ipratropium (Duoneb) 3 ml 1X ONCE NEB Last administered on 08/09/19at 09:08; Start 08/09/19 at 09:00; Stop 08/09/19 at 09:01; Status DC Methylprednisolone Sodium Succinate (SOLU-Medrol 125MG VIAL) 125 mg 1X ONCE IV Last administered on 08/09/19at 09:08; Start 08/09/19 at 09:00; Stop 08/09/19 at 09:01; Status DC Methylprednisolone Sodium Succinate (SOLU-Medrol 40MG VIAL) 40 mg Q8HRS IV ; Start 08/09/19 at 14:00; Stop 08/09/19 at 13:01; Status DC Guaifenesin (Robitussin Dm) 10 ml PRN Q6HRS PRN PO COUGH; Start 08/09/19 at 09:00; Stop 08/09/19 at 09:21; Status DC Guaifenesin (Robitussin Dm) 10 ml QID PO Last administered on 08/13/19at 21:07; Start 08/09/19 at 09:30; Stop 08/14/19 at 19:42; Status DC Albuterol Sulfate (Ventolin Neb Soln) 2.5 mg PRN Q4HRS PRN NEB SHORTNESS OF BREATH Last administered on 08/15/19 19:44; Start 08/09/19 at 09:30 Methylprednisolone Sodium Succinate (SOLU-Medrol 40MG VIAL) 40 mg BID IV Last administered on 08/10/19 08:45; Start 08/09/19 at 13:15; Stop 08/10/19 at 10:47; Status DC Budesonide (Pulmicort) 0.5 mg RTBID NEB Last administered on 08/16/19 08:14; Start 08/09/19 at 20:00 Amylase/Lipase/ Protease (Zenpep 10,000) 2 cap TIDWMEALS PO Last administered on 08/16/19 09:12; Start 08/09/19 at 17:00 Amylase/Lipase/ Protease (Zenpep 5,000) 2 cap TIDWMEALS PO ; Start 08/10/19 at 12:00; Status UNV Methylprednisolone Sodium Succinate (SOLU-Medrol 40MG VIAL) 40 mg QD IV Last administered on 08/11/19at 11:45; Start 08/10/19 at 10:45; Stop 08/12/19 at 08:36; Status DC Tramadol HCl (Ultram) 50 mg QID PO Last administered on 08/14/19 17:01; Start 08/12/19 at 09:00; Stop 08/14/19 at 18:36; Status DC Morphine Sulfate (Morphine Sulfate) 4 mg 1X ONCE IV Last administered on 08/12/19 06:09; Start 08/12/19 at 06:00; Stop 08/12/19 at 06:04; Status DC Lidocaine (Lidoderm) 1 patch DAILY TD Last administered on 08/13/19 08:43; Start 08/12/19 at 09:00 Miscellaneous (Lidoderm Patch Removal) 1 ea QHS MC Last administered on 08/13/19 21:07; Start 08/12/19 at 21:00 Methylprednisolone Sodium Succinate (SOLU-Medrol 40MG VIAL) 30 mg DAILY IV Last administered on 08/16/19 09:13; Start 08/12/19 at 10:45 Acetaminophen/ Hydrocodone Bitart (Lortab 5/325) 1 tab PRN Q4HRS PRN PO MODERATE-SEVERE PAIN Last administered on 08/14/19at 06:21; Start 08/12/19 at 20:30; Stop 08/15/19 at 15:56; Status DC Hydralazine HCl (Apresoline Inj) 10 mg PRN Q4HRS PRN IVP ELEVATED BP, SEE COMMENTS Last administered on 08/14/19at 02:45; Start 08/13/19 at 00:00 Polyethylene Glycol (miraLAX PACKET) 17 gm PRN DAILY PRN PO CONSTIPATION 2ND CHOICE; Start 08/13/19 at 12:45 Polyethylene Glycol (miraLAX PACKET) 17 gm DAILY PO Last administered on 08/14/19at 09:27; Start 08/13/19 at 13:00 Bisacodyl (Dulcolax Tab) 5 mg PRN DAILY PRN PO CONSTIPATION 1ST CHOICE; Start 08/13/19 at 12:45 Potassium Chloride (Klor-Con) 40 meq 1X ONCE PO Last administered on 08/14/19at 13:37; Start 08/14/19 at 12:30; Stop 08/14/19 at 12:31; Status DC Potassium Chloride (Klor-Con) 20 meq DAILYWBKFT PO Last administered on 08/16/19at 09:12; Start 08/15/19 at 08:00 Sodium Monofluorophosphate (Fleet Adult) 133 ml DAILY PRN [place] CONSTIPATION; Start 08/14/19 at 12:30 Docusate Sodium (Enemeez) 283 mg 1X ONCE [place] Last administered on 08/14/19at 13:37; Start 08/14/19 at 13:00; Stop 08/14/19 at 13:01; Status DC Hydrochlorothiazide (Microzide) 12.5 mg DAILY PO Last administered on 08/16/19at 09:12; Start 08/14/19 at 13:00 Lisinopril (Prinivil) 10 mg DAILY PO Last administered on 08/16/19at 09:12; Start 08/14/19 at 13:00 Tramadol HCl (Ultram) 50 mg PRN QID PRN PO MODERATE-SEVERE PAIN Last administered on 08/16/19at 05:15; Start 08/14/19 at 18:45 Magnesium Citrate (Citroma) 296 ml PRN 1X PRN PO CONSTIPATION Last administered on 08/14/19at 19:25; Start 08/14/19 at 18:45 Ketorolac Tromethamine (Toradol 15mg Vial) 15 mg PRN Q6HRS PRN IV PAIN Last administered on 08/16/19at 07:52; Start 08/14/19 at 18:45; Stop 08/19/19 at 18:44 Guaifenesin (Robitussin Dm) 10 ml PRN QID PRN PO cough; Start 08/14/19 at 19:45 Piperacillin Sod/ Tazobactam Sod 3.375 gm/Sodium Chloride 50 ml @ 100 mls/hr Q6HRS IV Last administered on 08/16/19at 06:03; Start 08/15/19 at 12:30 Lactobacillus Rhamnosus (Culturelle) 1 cap BID PO Last administered on 08/16/19at 09:12; Start 08/15/19 at 21:00 Active Scripts Active Reported Iykyupzmur-Gofezweaqmu-Nip Tab (Gluc/Servando-Msm#2/C/D3/Fran/Born) 1 Each Tablet 1 Tab-Cap PO DAILY Effexor Xr (Venlafaxine Hcl) 150 Mg Cap.er.24h 1 Cap PO DAILY Levothyroxine Sodium 137 Mcg Tablet 1 Tab PO DAILY Lisinopril 5 Mg Tablet 1 Tab PO DAILY Protonix (Pantoprazole Sodium) 20 Mg Tablet.dr 1 Tab PO DAILY Stool Softener (Docusate Sodium) 50 Mg Capsule 50 Mg PO DAILY Tylenol Extra Strength (Acetaminophen) 500 Mg Tablet 500 Mg PO Q6HRS PRN Calcium 500 + Vit D 200 Caplet (Calcium Carbonate/Vitamin D3) 1 Each Tablet 1 Each PO DAILY Vitals/I & O Vital Sign - Last 24 Hours 08/15/19 08/15/19 08/15/19 08/15/19 08:10 09:33 09:33 11:00 Temp 98.6 98.6 Pulse 61 67 Resp 16 16 B/P (MAP) 145/84 159/89 (112) Pulse Ox 97 O2 Delivery Room Air Room Air Room Air 08/15/19 08/15/19 08/15/19 08/15/19 12:04 15:00 15:29 15:50 Temp 98.2 98.2 Pulse 61 Resp 16 16 B/P (MAP) 133/73 (93) Pulse Ox 94 O2 Delivery Room Air Room Air Room Air Room Air 08/15/19 08/15/19 08/15/19 08/15/19 16:06 17:31 19:45 19:46 Resp 16 16 O2 Delivery Room Air Room Air Room Air Room Air 08/15/19 08/15/19 08/15/19 08/15/19 20:05 20:25 21:19 23:14 Temp 98.0 98.0 Pulse 62 Resp 18 20 20 B/P (MAP) 144/80 (101) Pulse Ox 97 O2 Delivery Room Air Room Air Room Air Room Air 08/16/19 08/16/19 08/16/19 08/16/19 00:06 04:20 05:15 06:21 Temp 97.8 98.2 97.8 98.2 Pulse 61 63 Resp 20 20 20 20 B/P (MAP) 134/84 (101) 152/86 (108) Pulse Ox 97 95 O2 Delivery Room Air Room Air Room Air Room Air 08/16/19 08/16/19 08/16/19 08/16/19 07:00 07:35 08:14 09:12 Temp 98.5 98.5 Pulse 60 60 Resp 18 B/P (MAP) 154/93 (113) 154/93 Pulse Ox 96 96 O2 Delivery Room Air Room Air Room Air Intake and Output 08/15/19 08/16/19 08/16/19 17:00 01:00 09:00 Intake Total 480 ml 240 ml Balance 480 ml 240 ml AZEB HOLLY MD Aug 16, 2019 09:51
[2019-08-16] MEDS: ALBUTEROL SULFATE 2.5 MG/3 ML NEBU. NEB PRN (11:06)
--- NOTE | 2019-08-16 16:03 | PDOC ---
Subjective: Subjective: "Manda rough." Making no headway with pain. Meds don't help. "Burning." Gets sweaty - chronic issue but worse now. Tolerating PO and stooling - not related to pain - does say food sits in epigastrium. Says was told pain management would come by - no consult per nurse. again asks if an MRI would help - says hospitalist told them maybe GI would order an MRI. Also asks if she could have a tumor pressing on her celiac nerve. Also says he was told that "this will keeps getting worse until something is found." Objective: Vital Signs: Vital Signs Date Time Temp Pulse Resp B/P (MAP) Pulse Ox O2 Delivery O2 Flow Rate FiO2 08/16/19 13:45 Room Air 08/16/19 11:08 96 08/16/19 11:00 97.9 66 18 155/81 (105) 97.9 Labs: Laboratory Tests Test 08/16/19 03:30 White Blood Count 19.3 x10^3/uL Red Blood Count 4.01 x10^6/uL Hemoglobin 11.9 g/dL Hematocrit 36.3 % Mean Corpuscular Volume 91 fL Mean Corpuscular Hemoglobin 30 pg Mean Corpuscular Hemoglobin Concent 33 g/dL Red Cell Distribution Width 14.4 % Platelet Count 206 x10^3/uL Neutrophils (%) (Auto) 79 % Lymphocytes (%) (Auto) 12 % Monocytes (%) (Auto) 8 % Eosinophils (%) (Auto) 0 % Basophils (%) (Auto) 0 % Neutrophils # (Auto) 15.3 x10^3/uL Lymphocytes # (Auto) 2.3 x10^3/uL Monocytes # (Auto) 1.6 x10^3/uL Eosinophils # (Auto) 0.0 x10^3/uL Basophils # (Auto) 0.1 x10^3/uL Erythrocyte Sedimentation Rate 11 Sodium Level 143 mmol/L Potassium Level 4.5 mmol/L Chloride Level 105 mmol/L Carbon Dioxide Level 33 mmol/L Anion Gap 5 Blood Urea Nitrogen 26 mg/dL Creatinine 1.2 mg/dL Estimated GFR (Cockcroft-Gault) 47.7 BUN/Creatinine Ratio 22 Glucose Level 125 mg/dL Calcium Level 8.0 mg/dL Total Bilirubin 0.4 mg/dL Aspartate Amino Transf (AST/SGOT) 20 U/L Alanine Aminotransferase (ALT/SGPT) 58 U/L Alkaline Phosphatase 140 U/L Total Protein 6.0 g/dL Albumin 2.8 g/dL Albumin/Globulin Ratio 0.9 BLOOD CULTURE Preliminary NO GROWTH AFTER 1 DAY Imaging: KUB 08/13 IMPRESSION: Moderate diffuse colonic stool burden. No radiographic evidence of high-grade bowel obstruction. US 08/15 IMPRESSION: 1. Redemonstration of peripherally calcified area within the neck/head of pancreas measuring 1.6 x 1.5 x 1.4 cm by ultrasound. This finding is not significantly changed given differences in modality. Short interval follow-up may be of benefit. PE: GEN: NAD LUNGS: CTAB HEART: RRR, ABD: soft, uncomfortable LUQ NEURO/PSYCH: A & O �3 A/P: Chronic abd and back pain Pancreatic cyst - evaluated w/ recent EUS/biopsy (benign) at -- Significant time spent again. Will ask pain management to see. ANA BANG Aug 16, 2019 16:03
[2019-08-16] MEDS: PATCH REMOVAL. MC SCH (20:58)
[2019-08-17] MEDS: traMADol 50 MG TABLET PO PRN ×2 (02:52→10:48)
[2019-08-17] MEDS: KETOROLAC 15 MG/ML VIAL. IV PRN ×2 (02:52→10:49)
[2019-08-17 03:12] VITALS: BP 169/86
[2019-08-17] MEDS: PIPERACILLIN/TAZOBACTAM 3.375 GM in IV NORMAL SALINE 50ML 50 ML IV SCH (05:54)
[2019-08-17] MEDS: PANTOPRAZOLE 40 MG TABLET.DR. PO SCH (06:11)
[2019-08-17] MEDS: LEVOTHYROXINE 137 MCG TABLET PO SCH (06:11)
[2019-08-17 07:00] VITALS: BP 146/65
[2019-08-17] MEDS: POTASSIUM CHLORIDE 20 MEQ TABLET.ER. PO SCH (08:01)
[2019-08-17] MEDS: LIPASE/PROTEAS/AMYLAS 10/32/42 CAPSULE.DR. PO SCH ×3 (08:01→17:10)
[2019-08-17] MEDS: VENLAFAXINE 50 MG TABLET. PO SCH ×3 (08:01→21:32)
[2019-08-17] MEDS: hydroCHLOROthiazide 12.5 MG CAPSULE PO SCH (08:01)
[2019-08-17] MEDS: methylPREDNISolone SOD SUCC PF 40 MG/ML VIAL. IV SCH (08:02)
[2019-08-17] MEDS: LACTOBACILLUS RHAMNOSUS GG 1 CAPSULE. PO SCH ×2 (08:02→21:32)
[2019-08-17] MEDS: DOCUSATE SODIUM 100 MG CAPSULE. PO SCH (08:02)
[2019-08-17] MEDS: LISINOPRIL 10 MG TABLET PO SCH (08:02)
[2019-08-17] MEDS: CALCIUM CARB/VIT D3 500/200 TABLET. PO SCH (08:02)
[2019-08-17] MEDS: BUDESONIDE 0.5 MG/2 ML NEBU. NEB SCH ×2 (08:51→19:14)
[2019-08-17] MEDS: POLYETHYLENE GLYCOL 3350 17 GM PACKET. PO SCH (09:00)
[2019-08-17] MEDS: LIDOCAINE (700MG/PATCH) PATCH. TD SCH (09:00)
--- NOTE | 2019-08-17 09:09 | PDOC ---
PROGRESS NOTES Chief Complaint Chief Complaint impression 1. Acute idioapthic pancreatitis r/o pseudocyst -non drinker, PAIN WORSE 08/13, narcotics reduced Along the anterior margin of the pancreatic head is an indeterminate lesion measuring up to 3.5 cm with surrounding inflammatory stranding. This might represent acute on chronic pancreatitis, or possibly sequela of chronic pancreatitis such as calcified pseudocyst. peripherally calcified area within the neck/head of pancreas measuring 1.6 x 1.5 x 1.4 cm by ultrasound 08/15 2. Morbid obesity BMI 46.4 3. WHeezy, seasonal allergies -better - flovent on dc, CXR NAD 4. HTN, hypothy - chronic stable 5,. HArd of hearing since - has amplifier 6. Skin lesions - bug bites/scratches no evidence of shingles 7. cxr c/w Linear opacities left lung base likely scarring/atelectasis. 8. morbid obesity 9. transaminitis 10. UNCONTROLLED PAIN 11. LEUKOCYTOSIS 08/12 Not improving. Thoroughly evaluated in the past @ [facility] 08/13 pain worse, MRI DEFERRED TO GI [facility] c/w lots of stool, try enema fleetsx 1 08/14 08/15 large BM YESTERDAY, HELPED PAIN ONLY ABOUT 5% WILL SONO TODAY ABD, CONT PAIN RX ADD IV ZOSYN, BLOOD CULTURE 08/17 PAIN 07/03 BUT PT APPEARS IN MINIMAL PAIN, EATING WELL, PLAYING VIDEO-GAMES ON PHONE 29 min pt exam, chart review, > 50% of time spent with exam, chart review, pt care coordination History of Present Illness History of Present Illness Still epigastric pain radiating to back BUt ,lipase down to 466 NO fevers GI note reviewed, waiting for records [facility] re recent CT - i followed up with RN an d alumnae secretary ( alheidiay signed a waiver to release records) Ambulating, at bedside She non toxic appearing but claims food made pain worse? NO more wheezing! - flovent on dc per pulmo note dry intertriginous areas - but might benefit from a shower? PLAN: COnt IVF - COnt ambulating ad gilberto REcheck lipase tmr/labs Dw TRial of pancreatic enzyme per gI recs - i put the order in if they are agreeable with my choice but can change as deemed appropriate ff up [facility] ct scan Vitals Vitals Vital Signs Date Time Temp Pulse Resp B/P (MAP) Pulse Ox O2 Delivery O2 Flow Rate FiO2 08/17/19 08:51 94 Room Air 08/17/19 08:03 52 169/86 08/17/19 07:00 97.7 18 97.7 08/16/19 22:23 3.0 Physical Exam General: Alert, Oriented X3, Cooperative, No acute distress Heart: Regular rate, Normal S1, Normal S2 Lungs: Clear Abdomen: Normal bowel sounds, Soft, No tenderness, No hepatosplenomegaly, No masses Extremities: No clubbing, No cyanosis, No edema, Normal pulses, No tenderness/swelling Skin: No rashes, No breakdown, No significant lesion Assessment and Plan Assessmemt and Plan Problems Medical Problems: (1) Acute pancreatitis Status: Acute (2) Dyslipidemia Status: Chronic (3) Elevated LFTs Status: Acute (4) Elevated lipase Status: Acute (5) Failure of outpatient treatment Status: Acute (6) HTN (hypertension) Status: Chronic (7) Hypothyroidism Status: Chronic (8) Intractable abdominal pain Status: Acute (9) Yeast cystitis Status: Acute Comment Review of Relevant I have reviewed the following items kira (where applicable) has been applied. Labs Laboratory Tests Test 08/16/19 03:30 White Blood Count 19.3 x10^3/uL (4.0-11.0) Red Blood Count 4.01 x10^6/uL (3.50-5.40) Hemoglobin 11.9 g/dL (12.0-15.5) Hematocrit 36.3 % (36.0-47.0) Mean Corpuscular Volume 91 fL (79-100) Mean Corpuscular Hemoglobin 30 pg (25-35) Mean Corpuscular Hemoglobin Concent 33 g/dL (31-37) Red Cell Distribution Width 14.4 % (11.5-14.5) Platelet Count 206 x10^3/uL (140-400) Neutrophils (%) (Auto) 79 % (31-73) Lymphocytes (%) (Auto) 12 % (24-48) Monocytes (%) (Auto) 8 % (0-9) Eosinophils (%) (Auto) 0 % (0-3) Basophils (%) (Auto) 0 % (0-3) Neutrophils # (Auto) 15.3 x10^3/uL (1.8-7.7) Lymphocytes # (Auto) 2.3 x10^3/uL (1.0-4.8) Monocytes # (Auto) 1.6 x10^3/uL (0.0-1.1) Eosinophils # (Auto) 0.0 x10^3/uL (0.0-0.7) Basophils # (Auto) 0.1 x10^3/uL (0.0-0.2) Erythrocyte Sedimentation Rate 11 (0-25) Sodium Level 143 mmol/L (136-145) Potassium Level 4.5 mmol/L (3.5-5.1) Chloride Level 105 mmol/L (98-107) Carbon Dioxide Level 33 mmol/L (21-32) Anion Gap 5 (6-14) Blood Urea Nitrogen 26 mg/dL (7-20) Creatinine 1.2 mg/dL (0.6-1.0) Estimated GFR (Cockcroft-Gault) 47.7 BUN/Creatinine Ratio 22 (6-20) Glucose Level 125 mg/dL (70-99) Calcium Level 8.0 mg/dL (8.5-10.1) Total Bilirubin 0.4 mg/dL (0.2-1.0) Aspartate Amino Transf (AST/SGOT) 20 U/L (15-37) Alanine Aminotransferase (ALT/SGPT) 58 U/L (14-59) Alkaline Phosphatase 140 U/L (46-116) Total Protein 6.0 g/dL (6.4-8.2) Albumin 2.8 g/dL (3.4-5.0) Albumin/Globulin Ratio 0.9 (1.0-1.7) Microbiology 08/15/19 Blood Culture - Preliminary, Resulted NO GROWTH AFTER 1 DAY 08/08/19 Urine Culture - Final, Complete 08/08/19 Urine Culture Result 1 ([facility]ON) - Final, Complete Medications Current Medications Ondansetron HCl (Zofran) 4 mg 1X ONCE IV Last administered on 08/08/19at 20:33; Start 08/08/19 at 20:30; Stop 08/08/19 at 20:31; Status DC Famotidine (Pepcid Vial) 20 mg 1X ONCE IVP Last administered on 08/08/19at 20:33; Start 08/08/19 at 20:30; Stop 08/08/19 at 20:31; Status DC Ketorolac Tromethamine (Toradol 15mg Vial) 15 mg 1X ONCE IV Last administered on 08/08/19at 20:33; Start 08/08/19 at 20:15; Stop 08/08/19 at 20:16; Status DC Sodium Chloride 1,000 ml @ 1,000 mls/hr 1X ONCE IV Last administered on 08/08/19at 20:33; Start 08/08/19 at 20:30; Stop 08/08/19 at 21:29; Status DC Fluconazole (Diflucan) 200 mg 1X ONCE PO Last administered on 08/08/19at 20:47; Start 08/08/19 at 21:00; Stop 08/08/19 at 21:01; Status DC Fentanyl Citrate (Fentanyl 2ml Vial) 50 mcg 1X ONCE IV Last administered on at 21:51; Start 08/08/19 at 22:00; Stop 08/08/19 at 22:01; Status DC Ondansetron HCl (Zofran) 4 mg PRN Q8HRS PRN IV NAUSEA/VOMITING 1ST CHOICE; Start 08/08/19 at 21:45; Stop 08/09/19 at 08:01; Status DC Fentanyl Citrate (Fentanyl 2ml Vial) 50 mcg PRN Q2HRS PRN IV SEVERE PAIN 7-10 Last administered on 08/14/19at 11:47; Start 08/08/19 at 21:45; Stop 08/15/19 at 15:56; Status DC Sodium Chloride 1,000 ml @ 100 mls/hr Q10H IV Last administered on 08/13/19at 12:27; Start 08/09/19 at 08:00; Stop 08/15/19 at 15:56; Status DC Ondansetron HCl (Zofran) 4 mg PRN Q6HRS PRN IV NAUSEA/VOMITING 1ST CHOICE; Start 08/09/19 at 08:00; Stop 08/10/19 at 07:59; Status DC Tramadol HCl (Ultram) 50 mg PRN Q6HRS PRN PO MILD TO MODERATE PAIN Last administered on 08/11/19at 20:51; Start 08/09/19 at 08:00; Stop 08/12/19 at 06:02; Status DC Acetaminophen (Tylenol) 500 mg PRN Q6HRS PRN PO MILD PAIN 1-3 Last administered on 08/11/19at 17:39; Start 08/09/19 at 08:00 Calcium/Vitamin D (Oscal D 500mg/ 200uts) 1 tab DAILY PO Last administered on 08/17/19 08:03; Start 08/09/19 at 09:00 Levothyroxine Sodium (Synthroid) 137 mcg DAILY06 PO Last administered on 08/17/19at 06:11; Start 08/09/19 at 10:30 Lisinopril (Prinivil) 5 mg DAILY PO Last administered on 08/14/19at 09:27; Start 08/09/19 at 09:00; Stop 08/14/19 at 16:36; Status DC Docusate Sodium (Colace) 100 mg DAILY PO Last administered on 08/17/19 08:03; Start 08/09/19 at 09:00 Non-Formulary Medication (Gluc/Servando-Msm#2/ C/D3/Fran/Born (Xewetkaknu-Zafoapbkdtf-Hud Tab)) 1 tab-cap DAILY PO ; Start 08/09/19 at 09:00; Status UNV Pantoprazole Sodium (Protonix) 40 mg DAILYAC PO Last administered on 08/17/19 06:11; Start 08/09/19 at 11:30 Venlafaxine HCl (Effexor) 50 mg TID PO Last administered on 08/17/19at 08:02; Start 08/09/19 at 09:00 Albuterol/ Ipratropium (Duoneb) 3 ml RTQID NEB Last administered on 08/15/19at 15:29; Start 08/09/19 at 12:00; Stop 08/15/19 at 16:14; Status DC Albuterol/ Ipratropium (Duoneb) 3 ml 1X ONCE NEB Last administered on 08/09/19at 09:08; Start 08/09/19 at 09:00; Stop 08/09/19 at 09:01; Status DC Methylprednisolone Sodium Succinate (SOLU-Medrol 125MG VIAL) 125 mg 1X ONCE IV Last administered on 08/09/19at 09:08; Start 08/09/19 at 09:00; Stop 08/09/19 at 09:01; Status DC Methylprednisolone Sodium Succinate (SOLU-Medrol 40MG VIAL) 40 mg Q8HRS IV ; Start 08/09/19 at 14:00; Stop 08/09/19 at 13:01; Status DC Guaifenesin (Robitussin Dm) 10 ml PRN Q6HRS PRN PO COUGH; Start 08/09/19 at 09:00; Stop 08/09/19 at 09:21; Status DC Guaifenesin (Robitussin Dm) 10 ml QID PO Last administered on 08/13/19at 21:07; Start 08/09/19 at 09:30; Stop 08/14/19 at 19:42; Status DC Albuterol Sulfate (Ventolin Neb Soln) 2.5 mg PRN Q4HRS PRN NEB SHORTNESS OF BREATH Last administered on 08/16/19at 11:07; Start 08/09/19 at 09:30 Methylprednisolone Sodium Succinate (SOLU-Medrol 40MG VIAL) 40 mg BID IV Last administered on 08/10/19at 08:45; Start 08/09/19 at 13:15; Stop 08/10/19 at 10:47; Status DC Budesonide (Pulmicort) 0.5 mg RTBID NEB Last administered on 08/17/19at 08:51; Start 08/09/19 at 20:00 Amylase/Lipase/ Protease (Zenpep 10,000) 2 cap TIDWMEALS PO Last administered on 08/17/19at 08:02; Start 08/09/19 at 17:00 Amylase/Lipase/ Protease (Zenpep 5,000) 2 cap TIDWMEALS PO ; Start 08/10/19 at 12:00; Status UNV Methylprednisolone Sodium Succinate (SOLU-Medrol 40MG VIAL) 40 mg QD IV Last administered on 08/11/19at 11:45; Start 08/10/19 at 10:45; Stop 08/12/19 at 08:36; Status DC Tramadol HCl (Ultram) 50 mg QID PO Last administered on 08/14/19at 17:01; Start 08/12/19 at 09:00; Stop 08/14/19 at 18:36; Status DC Morphine Sulfate (Morphine Sulfate) 4 mg 1X ONCE IV Last administered on 08/12/19at 06:09; Start 08/12/19 at 06:00; Stop 08/12/19 at 06:04; Status DC Lidocaine (Lidoderm) 1 patch DAILY TD Last administered on 08/13/19at 08:43; Start 08/12/19 at 09:00 Miscellaneous (Lidoderm Patch Removal) 1 ea QHS MC Last administered on 08/13/19at 21:07; Start 08/12/19 at 21:00 Methylprednisolone Sodium Succinate (SOLU-Medrol 40MG VIAL) 30 mg DAILY IV Last administered on 08/17/19 08:03; Start 08/12/19 at 10:45 Acetaminophen/ Hydrocodone Bitart (Lortab 5/325) 1 tab PRN Q4HRS PRN PO MODERATE-SEVERE PAIN Last administered on 08/14/19at 06:21; Start 08/12/19 at 20:30; Stop 08/15/19 at 15:56; Status DC Hydralazine HCl (Apresoline Inj) 10 mg PRN Q4HRS PRN IVP ELEVATED BP, SEE COMMENTS Last administered on 08/14/19at 02:45; Start 08/13/19 at 00:00 Polyethylene Glycol (miraLAX PACKET) 17 gm PRN DAILY PRN PO CONSTIPATION 2ND CHOICE; Start 08/13/19 at 12:45 Polyethylene Glycol (miraLAX PACKET) 17 gm DAILY PO Last administered on 08/14/19at 09:27; Start 08/13/19 at 13:00 Bisacodyl (Dulcolax Tab) 5 mg PRN DAILY PRN PO CONSTIPATION 1ST CHOICE; Start 08/13/19 at 12:45 Potassium Chloride (Klor-Con) 40 meq 1X ONCE PO Last administered on 08/14/19at 13:37; Start 08/14/19 at 12:30; Stop 08/14/19 at 12:31; Status DC Potassium Chloride (Klor-Con) 20 meq DAILYWBKFT PO Last administered on 08/17/19at 08:02; Start 08/15/19 at 08:00 Sodium Monofluorophosphate (Fleet Adult) 133 ml DAILY PRN ID CONSTIPATION; Start 08/14/19 at 12:30 Docusate Sodium (Enemeez) 283 mg 1X ONCE ID Last administered on 08/14/19at 13:37; Start 08/14/19 at 13:00; Stop 08/14/19 at 13:01; Status DC Hydrochlorothiazide (Microzide) 12.5 mg DAILY PO Last administered on 08/17/19 08:03; Start 08/14/19 at 13:00 Lisinopril (Prinivil) 10 mg DAILY PO Last administered on 08/17/19 08:03; Start 08/14/19 at 13:00 Tramadol HCl (Ultram) 50 mg PRN QID PRN PO MODERATE-SEVERE PAIN Last administered on 08/17/19 02:52; Start 08/14/19 at 18:45 Magnesium Citrate (Citroma) 296 ml PRN 1X PRN PO CONSTIPATION Last administered on 08/14/19at 19:25; Start 08/14/19 at 18:45 Ketorolac Tromethamine (Toradol 15mg Vial) 15 mg PRN Q6HRS PRN IV PAIN Last administered on 08/17/19 02:52; Start 08/14/19 at 18:45; Stop 08/19/19 at 18:44 Guaifenesin (Robitussin Dm) 10 ml PRN QID PRN PO cough; Start 08/14/19 at 19:45 Piperacillin Sod/ Tazobactam Sod 3.375 gm/Sodium Chloride 50 ml @ 100 mls/hr Q6HRS IV Last administered on 08/17/19at 05:54; Start 08/15/19 at 12:30 Lactobacillus Rhamnosus (Culturelle) 1 cap BID PO Last administered on 08/17/19at 08:03; Start 08/15/19 at 21:00 Active Scripts Active Reported Kjvfgqdnvi-Wxifldmqdoo-Cds Tab (Gluc/Servando-Msm#2/C/D3/Fran/Born) 1 Each Tablet 1 Tab-Cap PO DAILY Effexor Xr (Venlafaxine Hcl) 150 Mg Cap.er.24h 1 Cap PO DAILY Levothyroxine Sodium 137 Mcg Tablet 1 Tab PO DAILY Lisinopril 5 Mg Tablet 1 Tab PO DAILY Protonix (Pantoprazole Sodium) 20 Mg Tablet.dr 1 Tab PO DAILY Stool Softener (Docusate Sodium) 50 Mg Capsule 50 Mg PO DAILY Tylenol Extra Strength (Acetaminophen) 500 Mg Tablet 500 Mg PO Q6HRS PRN Calcium 500 + Vit D 200 Caplet (Calcium Carbonate/Vitamin D3) 1 Each Tablet 1 Each PO DAILY Vitals/I & O Vital Sign - Last 24 Hours 9/2308/16/19 08/16/19 08/16/19 07:35 08:14 09:12 11:00 Temp 97.9 97.9 Pulse 60 66 Resp 18 B/P (MAP) 154/93 155/81 (105) Pulse Ox 96 93 O2 Delivery Room Air Room Air Room Air 08/16/19 08/16/19 08/16/19 08/16/19 11:08 12:30 13:45 15:00 Temp 98.0 98.0 Pulse 61 Resp 18 B/P (MAP) 145/74 (97) Pulse Ox 96 93 O2 Delivery Room Air Room Air Room Air Room Air 08/16/19 08/16/19 08/16/19 08/16/19 19:04 20:00 20:23 21:00 Temp 97.8 97.8 Pulse 66 Resp 18 B/P (MAP) 147/75 (99) Pulse Ox 95 94 94 O2 Delivery Room Air Room Air Room Air Room Air 08/16/19 08/16/19 08/17/19 08/17/19 22:23 23:22 02:52 03:12 Temp 97.4 97.6 97.4 97.6 Pulse 66 52 Resp 20 20 B/P (MAP) 158/91 (113) 169/86 (113) Pulse Ox 94 93 93 96 O2 Delivery Room Air BiPAP/CPAP Room Air BiPAP/CPAP O2 Flow Rate 3.0 08/17/19 08/17/19 08/17/19 08/17/19 05:49 07:00 08:00 08:03 Temp 97.7 97.7 Pulse 59 52 Resp 18 B/P (MAP) 146/65 (92) 169/86 Pulse Ox 96 94 O2 Delivery Room Air Room Air Room Air 08/17/19 08:51 Pulse Ox 94 O2 Delivery Room Air Intake and Output 08/16/19 08/17/19 08/17/19 16:59 00:59 08:59 Intake Total 325 ml 300 ml Balance 325 ml 300 ml AZEB HOLLY MD Aug 17, 2019 09:09
--- NOTE | 2019-08-17 09:14 | PDOC ---
Subjective: Subjective: Feels the same - burning LUQ pain through to left flank and around left side. Tolerating PO. Objective: Vital Signs: Vital Signs Date Time Temp Pulse Resp B/P (MAP) Pulse Ox O2 Delivery O2 Flow Rate FiO2 08/17/19 08:51 94 Room Air 08/17/19 08:03 52 169/86 08/17/19 07:00 97.7 18 97.7 08/16/19 22:23 3.0 PE: GEN: NAD LUNGS: CTAB HEART: RRR ABD: LUQ tenderness per usual NEURO/PSYCH: A & O �3 A/P: Chronic abd and back pain Pancreatic cyst - evaluated w/ recent EUS/biopsy (benign) at [facility] - suspect this is not the only reason for her pain Leukocytosis on IV steroids -- Awaiting pain management opinion. ?need for Zosyn ?need for steroids Continue PPI, pancreatic enzymes, Miralax. ANA BANG Aug 17, 2019 09:14
[2019-08-17 11:00] VITALS: BP 156/74
--- NOTE | 2019-08-17 13:03 | PDOC ---
SUBJECTIVE Subjective ABDOMINAL AND LEFT BACK PAIN OBJECTIVE Objective 49-year-old female admitted c/o abdominal pain, subsequently has been found to have acute pancreatitis. Apparently, she has findings of chronic pancreatitis in the past and she has been evaluated by [facility]. She was complaining of back pain, particularly on the left side with burning in the area with certain positioning. Vital Signs Vital Signs Date Time Temp Pulse Resp B/P (MAP) Pulse Ox O2 Delivery O2 Flow Rate FiO2 08/17/19 11:00 97.5 61 16 156/74 (101) 95 Room Air 97.5 08/17/19 10:49 18 Room Air 08/17/19 08:51 94 Room Air 08/17/19 08:03 52 169/86 08/17/19 08:00 Room Air 08/17/19 07:00 97.7 59 18 146/65 (92) 94 Room Air 97.7 08/17/19 05:49 96 Room Air 08/17/19 03:12 97.6 52 20 169/86 (113) 96 BiPAP/CPAP 97.6 08/17/19 02:52 93 Room Air 08/16/19 23:22 97.4 66 20 158/91 (113) 93 BiPAP/CPAP 97.4 08/16/19 22:23 94 Room Air 3.0 08/16/19 21:00 94 Room Air 08/16/19 20:23 94 Room Air 08/16/19 20:00 Room Air 08/16/19 19:04 97.8 66 18 147/75 (99) 95 Room Air 97.8 08/16/19 15:00 98.0 61 18 145/74 (97) 93 Room Air 98.0 08/16/19 13:45 Room Air I & O Intake and Output 08/17/19 07:00 Intake Total 625 ml Balance 625 ml Intake Oral 625 ml ASSESSMENT/PLAN Assessment/Plan Chart reviewed, imaging reviewed. GI w/u in progress Pain has some myofascial components in left mid-back REC: maintain Tramadol prn; PT for deep tissue manipulation mid-back/streching/heat,etc. KEITH BARNHART MD Aug 17, 2019 13:03
[2019-08-17] MEDS: HYDROmorphone 2 MG/ML VIAL IV PRN ×2 (14:06→21:34)
[2019-08-17 15:00] VITALS: BP 120/67
[2019-08-17 15:25] LABS: BASO % 0 % (0-3); EOS % 0 % (0-3); HEMATOCRIT 40.5 % (36.0-47.0); LYMPH % 5 % (24-48); MEAN CORPUSCULAR HEMOGLOBIN 29 pg (25-35); MEAN CORPUSCULAR HGB CONC 32 g/dL (31-37); MEAN CORPUSCULAR VOLUME 90 fL (79-100); MONO # 0.8 x10^3/uL (0.0-1.1); MONO % 4 % (0-9); NEUT # 19.4 x10^3/uL (1.8-7.7); NEUT % 91 % (31-73); PLATELET COUNT 240 x10^3/uL (140-400); RED BLOOD COUNT 4.48 x10^6/uL (3.50-5.40); RED CELL DISTRIBUTION WIDTH 14.2 % (11.5-14.5); WHITE BLOOD COUNT 21.2 x10^3/uL (4.0-11.0)
[2019-08-17 15:45] LABS: ALBUMIN 3.4 g/dL (3.4-5.0); ALBUMIN/GLOBULIN RATIO 0.9 (1.0-1.7); CALCIUM 8.5 mg/dL (8.5-10.1); CREATININE 1.2 mg/dL (0.6-1.0); GFR 47.7; TOTAL BILIRUBIN 0.5 mg/dL (0.2-1.0); TOTAL PROTEIN 7.2 g/dL (6.4-8.2)
[2019-08-17 16:07] LABS: % LYMPHS 7 % (24-48); % MONOS 5 % (0-10); % SEGS 88 % (35-66); PLT ESTIMATE ADEQUATE (ADEQUATE)
[2019-08-17 19:35] VITALS: BP 160/81
[2019-08-17] MEDS: PATCH REMOVAL. MC SCH (21:00)
[2019-08-17 23:11] VITALS: BP 153/99
[2019-08-18] MEDS: KETOROLAC 15 MG/ML VIAL. IV PRN ×2 (02:47→21:07)
[2019-08-18 03:48] VITALS: BP 134/77
[2019-08-18] MEDS: PANTOPRAZOLE 40 MG TABLET.DR. PO SCH (06:15)
[2019-08-18] MEDS: LEVOTHYROXINE 137 MCG TABLET PO SCH (06:15)
[2019-08-18 07:00] VITALS: BP 130/72
[2019-08-18] MEDS: BUDESONIDE 0.5 MG/2 ML NEBU. NEB SCH ×2 (07:29→20:49)
[2019-08-18] MEDS: POLYETHYLENE GLYCOL 3350 17 GM PACKET. PO SCH (09:00)
[2019-08-18] MEDS: VENLAFAXINE 50 MG TABLET. PO SCH ×3 (09:24→21:07)
[2019-08-18] MEDS: LIPASE/PROTEAS/AMYLAS 10/32/42 CAPSULE.DR. PO SCH ×3 (09:24→17:27)
[2019-08-18] MEDS: CALCIUM CARB/VIT D3 500/200 TABLET. PO SCH (09:25)
[2019-08-18] MEDS: traMADol 50 MG TABLET PO PRN ×2 (09:25→22:19)
[2019-08-18] MEDS: DOCUSATE SODIUM 100 MG CAPSULE. PO SCH (09:25)
[2019-08-18] MEDS: hydroCHLOROthiazide 12.5 MG CAPSULE PO SCH (09:25)
[2019-08-18] MEDS: LACTOBACILLUS RHAMNOSUS GG 1 CAPSULE. PO SCH ×2 (09:25→21:07)
[2019-08-18] MEDS: POTASSIUM CHLORIDE 20 MEQ TABLET.ER. PO SCH (09:25)
[2019-08-18] MEDS: LISINOPRIL 10 MG TABLET PO SCH (09:26)
[2019-08-18] MEDS: LIDOCAINE (700MG/PATCH) PATCH. TD SCH (09:26)
[2019-08-18 11:00] VITALS: BP 166/85
--- NOTE | 2019-08-18 11:39 | PDOC ---
PROGRESS NOTES Chief Complaint Chief Complaint impression 1. Acute idioapthic pancreatitis r/o pseudocyst -non drinker, PAIN WORSE 08/13, narcotics reduced 2. Morbid obesity BMI 46.4 3. WHeezy, seasonal allergies -better - flovent on dc, CXR NAD 4. HTN, hypothy - chronic stable 5,. HArd of hearing since - has amplifier 6. Skin lesions - bug bites/scratches no evidence of shingles 7. cxr c/w Linear opacities left lung base likely scarring/atelectasis. 8. morbid obesity 9. transaminitis 10. UNCONTROLLED PAIN 11. LEUKOCYTOSIS History of Present Illness History of Present Illness tense discussion today day 10 of hospital stay and once started eating, recurrence epig pain and lipase up to 1509 She asks about [facility] records and we discussed - ahd endoscopic US and biopsy - benign results SHe started to cry as i was asking about managing at home We also talked about PICC< TPN, ltac if this continues and if she wishes to pursue that route - dw SW, she wont qualify ltac but Mine and rebecca will screen for pplace, TPN and PICC Dw too, he asks about panc CA - I sais i seriously doubt that ALl images i provided a copy, plus the [facility] biopsy is benign PLAN: BAck down to liq diet (she even cried more about being NPO again) Keep current IVF and pain med PPLace screen for TPN PICC if needed re check lipase tmr, time 34 mins Vitals Vitals Vital Signs Date Time Temp Pulse Resp B/P (MAP) Pulse Ox O2 Delivery O2 Flow Rate FiO2 08/18/19 09:26 52 130/72 08/18/19 09:26 Room Air 08/18/19 07:29 94 08/18/19 07:00 98.6 16 98.6 Physical Exam General: Alert, Oriented X3, Cooperative, No acute distress Heart: Regular rate, Normal S1, Normal S2 Lungs: Clear Abdomen: Normal bowel sounds, Soft, No tenderness, No hepatosplenomegaly, No masses Extremities: No clubbing, No cyanosis, No edema, Normal pulses, No tenderness/swelling Skin: No rashes, No breakdown, No significant lesion Labs LABS Laboratory Tests Test 08/17/19 15:11 White Blood Count 21.2 x10^3/uL (4.0-11.0) Red Blood Count 4.48 x10^6/uL (3.50-5.40) Hemoglobin 13.0 g/dL (12.0-15.5) Hematocrit 40.5 % (36.0-47.0) Mean Corpuscular Volume 90 fL (79-100) Mean Corpuscular Hemoglobin 29 pg (25-35) Mean Corpuscular Hemoglobin Concent 32 g/dL (31-37) Red Cell Distribution Width 14.2 % (11.5-14.5) Platelet Count 240 x10^3/uL (140-400) Neutrophils (%) (Auto) 91 % (31-73) Lymphocytes (%) (Auto) 5 % (24-48) Monocytes (%) (Auto) 4 % (0-9) Eosinophils (%) (Auto) 0 % (0-3) Basophils (%) (Auto) 0 % (0-3) Neutrophils # (Auto) 19.4 x10^3/uL (1.8-7.7) Lymphocytes # (Auto) 1.0 x10^3/uL (1.0-4.8) Monocytes # (Auto) 0.8 x10^3/uL (0.0-1.1) Eosinophils # (Auto) 0.0 x10^3/uL (0.0-0.7) Basophils # (Auto) 0.0 x10^3/uL (0.0-0.2) Segmented Neutrophils % 88 % (35-66) Lymphocytes % 7 % (24-48) Monocytes % 5 % (0-10) Platelet Estimate Adequate (ADEQUATE) Sodium Level 143 mmol/L (136-145) Potassium Level 5.0 mmol/L (3.5-5.1) Chloride Level 104 mmol/L (98-107) Carbon Dioxide Level 32 mmol/L (21-32) Anion Gap 7 (6-14) Blood Urea Nitrogen 27 mg/dL (7-20) Creatinine 1.2 mg/dL (0.6-1.0) Estimated GFR (Cockcroft-Gault) 47.7 BUN/Creatinine Ratio 23 (6-20) Glucose Level 148 mg/dL (70-99) Calcium Level 8.5 mg/dL (8.5-10.1) Total Bilirubin 0.5 mg/dL (0.2-1.0) Aspartate Amino Transf (AST/SGOT) 150 U/L (15-37) Alanine Aminotransferase (ALT/SGPT) 141 U/L (14-59) Alkaline Phosphatase 207 U/L (46-116) Total Protein 7.2 g/dL (6.4-8.2) Albumin 3.4 g/dL (3.4-5.0) Albumin/Globulin Ratio 0.9 (1.0-1.7) Lipase 1906 U/L (73-393) Review of Systems Review of Systems unccoperative, crying, flustered, frustrated Assessment and Plan Assessmemt and Plan Problems Medical Problems: (1) Acute pancreatitis Status: Acute (2) Dyslipidemia Status: Chronic (3) Elevated LFTs Status: Acute (4) Elevated lipase Status: Acute (5) Failure of outpatient treatment Status: Acute (6) HTN (hypertension) Status: Chronic (7) Hypothyroidism Status: Chronic (8) Intractable abdominal pain Status: Acute (9) Yeast cystitis Status: Acute Comment Review of Relevant I have reviewed the following items kira (where applicable) has been applied. Labs Laboratory Tests Test 08/17/19 15:11 White Blood Count 21.2 x10^3/uL (4.0-11.0) Red Blood Count 4.48 x10^6/uL (3.50-5.40) Hemoglobin 13.0 g/dL (12.0-15.5) Hematocrit 40.5 % (36.0-47.0) Mean Corpuscular Volume 90 fL (79-100) Mean Corpuscular Hemoglobin 29 pg (25-35) Mean Corpuscular Hemoglobin Concent 32 g/dL (31-37) Red Cell Distribution Width 14.2 % (11.5-14.5) Platelet Count 240 x10^3/uL (140-400) Neutrophils (%) (Auto) 91 % (31-73) Lymphocytes (%) (Auto) 5 % (24-48) Monocytes (%) (Auto) 4 % (0-9) Eosinophils (%) (Auto) 0 % (0-3) Basophils (%) (Auto) 0 % (0-3) Neutrophils # (Auto) 19.4 x10^3/uL (1.8-7.7) Lymphocytes # (Auto) 1.0 x10^3/uL (1.0-4.8) Monocytes # (Auto) 0.8 x10^3/uL (0.0-1.1) Eosinophils # (Auto) 0.0 x10^3/uL (0.0-0.7) Basophils # (Auto) 0.0 x10^3/uL (0.0-0.2) Segmented Neutrophils % 88 % (35-66) Lymphocytes % 7 % (24-48) Monocytes % 5 % (0-10) Platelet Estimate Adequate (ADEQUATE) Sodium Level 143 mmol/L (136-145) Potassium Level 5.0 mmol/L (3.5-5.1) Chloride Level 104 mmol/L (98-107) Carbon Dioxide Level 32 mmol/L (21-32) Anion Gap 7 (6-14) Blood Urea Nitrogen 27 mg/dL (7-20) Creatinine 1.2 mg/dL (0.6-1.0) Estimated GFR (Cockcroft-Gault) 47.7 BUN/Creatinine Ratio 23 (6-20) Glucose Level 148 mg/dL (70-99) Calcium Level 8.5 mg/dL (8.5-10.1) Total Bilirubin 0.5 mg/dL (0.2-1.0) Aspartate Amino Transf (AST/SGOT) 150 U/L (15-37) Alanine Aminotransferase (ALT/SGPT) 141 U/L (14-59) Alkaline Phosphatase 207 U/L (46-116) Total Protein 7.2 g/dL (6.4-8.2) Albumin 3.4 g/dL (3.4-5.0) Albumin/Globulin Ratio 0.9 (1.0-1.7) Lipase 1906 U/L (73-393) Laboratory Tests Test 08/17/19 15:11 White Blood Count 21.2 x10^3/uL (4.0-11.0) Red Blood Count 4.48 x10^6/uL (3.50-5.40) Hemoglobin 13.0 g/dL (12.0-15.5) Hematocrit 40.5 % (36.0-47.0) Mean Corpuscular Volume 90 fL (79-100) Mean Corpuscular Hemoglobin 29 pg (25-35) Mean Corpuscular Hemoglobin Concent 32 g/dL (31-37) Red Cell Distribution Width 14.2 % (11.5-14.5) Platelet Count 240 x10^3/uL (140-400) Neutrophils (%) (Auto) 91 % (31-73) Lymphocytes (%) (Auto) 5 % (24-48) Monocytes (%) (Auto) 4 % (0-9) Eosinophils (%) (Auto) 0 % (0-3) Basophils (%) (Auto) 0 % (0-3) Neutrophils # (Auto) 19.4 x10^3/uL (1.8-7.7) Lymphocytes # (Auto) 1.0 x10^3/uL (1.0-4.8) Monocytes # (Auto) 0.8 x10^3/uL (0.0-1.1) Eosinophils # (Auto) 0.0 x10^3/uL (0.0-0.7) Basophils # (Auto) 0.0 x10^3/uL (0.0-0.2) Segmented Neutrophils % 88 % (35-66) Lymphocytes % 7 % (24-48) Monocytes % 5 % (0-10) Platelet Estimate Adequate (ADEQUATE) Sodium Level 143 mmol/L (136-145) Potassium Level 5.0 mmol/L (3.5-5.1) Chloride Level 104 mmol/L (98-107) Carbon Dioxide Level 32 mmol/L (21-32) Anion Gap 7 (6-14) Blood Urea Nitrogen 27 mg/dL (7-20) Creatinine 1.2 mg/dL (0.6-1.0) Estimated GFR (Cockcroft-Gault) 47.7 BUN/Creatinine Ratio 23 (6-20) Glucose Level 148 mg/dL (70-99) Calcium Level 8.5 mg/dL (8.5-10.1) Total Bilirubin 0.5 mg/dL (0.2-1.0) Aspartate Amino Transf (AST/SGOT) 150 U/L (15-37) Alanine Aminotransferase (ALT/SGPT) 141 U/L (14-59) Alkaline Phosphatase 207 U/L (46-116) Total Protein 7.2 g/dL (6.4-8.2) Albumin 3.4 g/dL (3.4-5.0) Albumin/Globulin Ratio 0.9 (1.0-1.7) Lipase 1906 U/L (73-393) Microbiology 08/15/19 Blood Culture - Preliminary, Resulted NO GROWTH AFTER 2 DAYS 08/08/19 Urine Culture - Final, Complete 08/08/19 Urine Culture Result 1 ([facility]ON) - Final, Complete Medications Current Medications Ondansetron HCl (Zofran) 4 mg 1X ONCE IV Last administered on 08/08/19at 20:33; Start 08/08/19 at 20:30; Stop 08/08/19 at 20:31; Status DC Famotidine (Pepcid Vial) 20 mg 1X ONCE IVP Last administered on 08/08/19at 20:33; Start 08/08/19 at 20:30; Stop 08/08/19 at 20:31; Status DC Ketorolac Tromethamine (Toradol 15mg Vial) 15 mg 1X ONCE IV Last administered on 08/08/19at 20:33; Start 08/08/19 at 20:15; Stop 08/08/19 at 20:16; Status DC Sodium Chloride 1,000 ml @ 1,000 mls/hr 1X ONCE IV Last administered on 08/08/19at 20:33; Start 08/08/19 at 20:30; Stop 08/08/19 at 21:29; Status DC Fluconazole (Diflucan) 200 mg 1X ONCE PO Last administered on 08/08/19at 20:47; Start 08/08/19 at 21:00; Stop 08/08/19 at 21:01; Status DC Fentanyl Citrate (Fentanyl 2ml Vial) 50 mcg 1X ONCE IV Last administered on 08/08/19at 21:51; Start 08/08/19 at 22:00; Stop 08/08/19 at 22:01; Status DC Ondansetron HCl (Zofran) 4 mg PRN Q8HRS PRN IV NAUSEA/VOMITING 1ST CHOICE; Start 08/08/19 at 21:45; Stop 08/09/19 at 08:01; Status DC Fentanyl Citrate (Fentanyl 2ml Vial) 50 mcg PRN Q2HRS PRN IV SEVERE PAIN 7-10 Last administered on 08/14/19at 11:47; Start 08/08/19 at 21:45; Stop 08/15/19 at 15:56; Status DC Sodium Chloride 1,000 ml @ 100 mls/hr Q10H IV Last administered on 08/13/19 12:27; Start 08/09/19 at 08:00; Stop 08/15/19 at 15:56; Status DC Ondansetron HCl (Zofran) 4 mg PRN Q6HRS PRN IV NAUSEA/VOMITING 1ST CHOICE; Start 08/09/19 at 08:00; Stop 08/10/19 at 07:59; Status DC Tramadol HCl (Ultram) 50 mg PRN Q6HRS PRN PO MILD TO MODERATE PAIN Last administered on 08/11/19at 20:51; Start 08/09/19 at 08:00; Stop 08/12/19 at 06:02; Status DC Acetaminophen (Tylenol) 500 mg PRN Q6HRS PRN PO MILD PAIN 1-3 Last administered on 08/11/19 17:39; Start 08/09/19 at 08:00 Calcium/Vitamin D (Oscal D 500mg/ 200uts) 1 tab DAILY PO Last administered on 08/18/19 09:26; Start 08/09/19 at 09:00 Levothyroxine Sodium (Synthroid) 137 mcg DAILY06 PO Last administered on 06:15; Start 08/09/19 at 10:30 Lisinopril (Prinivil) 5 mg DAILY PO Last administered on 08/14/19 09:27; Start 08/09/19 at 09:00; Stop 08/14/19 at 16:36; Status DC Docusate Sodium (Colace) 100 mg DAILY PO Last administered on 08/18/19 09:26; Start 08/09/19 at 09:00 Non-Formulary Medication (Gluc/Servando-Msm#2/ C/D3/Fran/Born (Podxhmsymt-Epokmjqyvsa-Dkj Tab)) 1 tab-cap DAILY PO ; Start 08/09/19 at 09:00; Status UNV Pantoprazole Sodium (Protonix) 40 mg DAILYAC PO Last administered on 08/18/19 06:15; Start 08/09/19 at 11:30 Venlafaxine HCl (Effexor) 50 mg TID PO Last administered on 08/18/19 09:26; Start 08/09/19 at 09:00 Albuterol/ Ipratropium (Duoneb) 3 ml RTQID NEB Last administered on 08/15/19at 15:29; Start 08/09/19 at 12:00; Stop 08/15/19 at 16:14; Status DC Albuterol/ Ipratropium (Duoneb) 3 ml 1X ONCE NEB Last administered on 08/09/19at 09:08; Start 08/09/19 at 09:00; Stop 08/09/19 at 09:01; Status DC Methylprednisolone Sodium Succinate (SOLU-Medrol 125MG VIAL) 125 mg 1X ONCE IV Last administered on 08/09/19at 09:08; Start 08/09/19 at 09:00; Stop 08/09/19 at 09:01; Status DC Methylprednisolone Sodium Succinate (SOLU-Medrol 40MG VIAL) 40 mg Q8HRS IV ; Start 08/09/19 at 14:00; Stop 08/09/19 at 13:01; Status DC Guaifenesin (Robitussin Dm) 10 ml PRN Q6HRS PRN PO COUGH; Start 08/09/19 at 09:00; Stop 08/09/19 at 09:21; Status DC Guaifenesin (Robitussin Dm) 10 ml QID PO Last administered on 08/13/19at 21:07; Start 08/09/19 at 09:30; Stop 08/14/19 at 19:42; Status DC Albuterol Sulfate (Ventolin Neb Soln) 2.5 mg PRN Q4HRS PRN NEB SHORTNESS OF BREATH Last administered on 08/16/19at 11:07; Start 08/09/19 at 09:30 Methylprednisolone Sodium Succinate (SOLU-Medrol 40MG VIAL) 40 mg BID IV Last administered on 08/10/19at 08:45; Start 08/09/19 at 13:15; Stop 08/10/19 at 10:47; Status DC Budesonide (Pulmicort) 0.5 mg RTBID NEB Last administered on 08/18/19at 07:29; Start 08/09/19 at 20:00 Amylase/Lipase/ Protease (Zenpep 10,000) 2 cap TIDWMEALS PO Last administered on 08/18/19at 09:26; Start 08/09/19 at 17:00 Amylase/Lipase/ Protease (Zenpep 5,000) 2 cap TIDWMEALS PO ; Start 08/10/19 at 12:00; Status UNV Methylprednisolone Sodium Succinate (SOLU-Medrol 40MG VIAL) 40 mg QD IV Last administered on 08/11/19at 11:45; Start 08/10/19 at 10:45; Stop 08/12/19 at 0 8:36; Status DC Tramadol HCl (Ultram) 50 mg QID PO Last administered on 08/14/19at 17:01; Start 08/12/19 at 09:00; Stop 08/14/19 at 18:36; Status DC Morphine Sulfate (Morphine Sulfate) 4 mg 1X ONCE IV Last administered on 08/12/19at 06:09; Start 08/12/19 at 06:00; Stop 08/12/19 at 06:04; Status DC Lidocaine (Lidoderm) 1 patch DAILY TD Last administered on 08/18/19at 09:26; Start 08/12/19 at 09:00 Miscellaneous (Lidoderm Patch Removal) 1 ea QHS MC Last administered on 08/13/19at 21:07; Start 08/12/19 at 21:00 Methylprednisolone Sodium Succinate (SOLU-Medrol 40MG VIAL) 30 mg DAILY IV Last administered on 08/17/19at 08:03; Start 08/12/19 at 10:45; Stop 08/18/19 at 08:37; Status DC Acetaminophen/ Hydrocodone Bitart (Lortab 5/325) 1 tab PRN Q4HRS PRN PO MOD ERATE-SEVERE PAIN Last administered on 08/14/19at 06:21; Start 08/12/19 at 20:30; Stop 08/15/19 at 15:56; Status DC Hydralazine HCl (Apresoline Inj) 10 mg PRN Q4HRS PRN IVP ELEVATED BP, SEE COMMENTS Last administered on 08/14/19at 02:45; Start 08/13/19 at 00:00 Polyethylene Glycol (miraLAX PACKET) 17 gm PRN DAILY PRN PO CONSTIPATION 2ND CHOICE; Start 08/13/19 at 12:45 Polyethylene Glycol (miraLAX PACKET) 17 gm DAILY PO Last administered on 08/14/19at 09:27; Start 08/13/19 at 13:00 Bisacodyl (Dulcolax Tab) 5 mg PRN DAILY PRN PO CONSTIPATION 1ST CHOICE; Start 08/13/19 at 12:45 Potassium Chloride (Klor-Con) 40 meq 1X ONCE PO Last administered on 08/14/19at 13:37; Start 08/14/19 at 12:30; Stop 08/14/19 at 12:31; Status DC Potassium Chloride (Klor-Con) 20 meq DAILYWBKFT PO Last administered on 08/18/19 09:26; Start 08/15/19 at 08:00 Sodium Monofluorophosphate (Fleet Adult) 133 ml DAILY PRN MA CONSTIPATION; Start 08/14/19 at 12:30 Docusate Sodium (Enemeez) 283 mg 1X ONCE MA Last administered on 08/14/19at 1 3:37; Start 08/14/19 at 13:00; Stop 08/14/19 at 13:01; Status DC Hydrochlorothiazide (Microzide) 12.5 mg DAILY PO Last administered on 08/18/19 09:26; Start 08/14/19 at 13:00 Lisinopril (Prinivil) 10 mg DAILY PO Last administered on 08/18/19 09:26; S tart 08/14/19 at 13:00 Tramadol HCl (Ultram) 50 mg PRN QID PRN PO MODERATE-SEVERE PAIN Last administered on 08/18/19 09:26; Start 08/14/19 at 18:45 Magnesium Citrate (Citroma) 296 ml PRN 1X PRN PO CONSTIPATION Last administered on 08/14/19at 19:25; Start 08/14/19 at 18:45 Ketorolac Tromethamine (Toradol 15mg Vial) 15 mg PRN Q6HRS PRN IV PAIN Last administered on 08/18/19at 02:47; Start 08/14/19 at 18:45; Stop 08/19/19 at 18:44 Guaifenesin (Robitussin Dm) 10 ml PRN QID PRN PO cough; Start 08/14/19 at 19:45 Piperacillin Sod/ Tazobactam Sod 3.375 gm/Sodium Chloride 50 ml @ 100 mls/hr Q6HRS IV Last administered on 08/17/19at 05:54; Start 08/15/19 at 12:30; Stop 08/17/19 at 10:52; Status DC Lactobacillus Rhamnosus (Culturelle) 1 cap BID PO Last administered on 08/18/19at 09:26; Start 08/15/19 at 21:00 Hydromorphone HCl (Dilaudid) 1 mg PRN Q4HRS PRN IV severe pain Last administered on 08/17/19at 21:34; Start 08/17/19 at 13:45 Active Scripts Active Reported Ecqitqwvzg-Efhzdcytxcs-Ofq Tab (Gluc/Servando-Msm#2/C/D3/Fran/Born) 1 Each Tablet 1 Tab-Cap PO DAILY Effexor Xr (Venlafaxine Hcl) 150 Mg Cap.er.24h 1 Cap PO DAILY Levothyroxine Sodium 137 Mcg Tablet 1 Tab PO DAILY Lisinopril 5 Mg Tablet 1 Tab PO DAILY Protonix (Pantoprazole Sodium) 20 Mg Tablet.dr 1 Tab PO DAILY Stool Softener (Docusate Sodium) 50 Mg Capsule 50 Mg PO DAILY Tylenol Extra Strength (Acetaminophen) 500 Mg Tablet 500 Mg PO Q6HRS PRN Calcium 500 + Vit D 200 Caplet (Calcium Carbonate/Vitamin D3) 1 Each Tablet 1 Each PO DAILY Vitals/I & O Vital Sign - Last 24 Hours 08/17/19 08/17/19 08/17/19 08/17/19 13:09 14:09 15:00 15:15 Temp 97.7 97.7 Pulse 70 Resp 18 24 16 16 B/P (MAP) 120/67 (84) Pulse Ox 97 O2 Delivery Room Air Room Air Room Air Room Air 08/17/19 08/17/19 08/17/19 08/17/19 19:15 19:35 20:00 21:34 Temp 97.7 97.7 Pulse 52 Resp 18 17 B/P (MAP) 160/81 (107) Pulse Ox 93 97 O2 Delivery Room Air Room Air Room Air Room Air 08/17/19 08/18/19 08/18/19 08/18/19 23:11 01:41 03:48 07:00 Temp 97.6 98.2 98.6 97.6 98.2 98.6 Pulse 56 54 52 Resp 16 21 16 16 B/P (MAP) 153/99 (117) 134/77 (96) 130/72 (91) Pulse Ox 95 93 98 O2 Delivery Room Air Room Air Room Air Room Air 08/18/19 08/18/19 08/18/19 07:29 09:26 09:26 Pulse 52 B/P (MAP) 130/72 Pulse Ox 94 O2 Delivery Room Air Room Air Intake and Output 08/17/19 08/17/19 08/18/19 15:00 23:00 07:00 Intake Total 440 ml 300 ml 510 ml Balance 440 ml 300 ml 510 ml TONYA LORD MD Aug 18, 2019 11:39
--- NOTE | 2019-08-18 12:53 | PDOC ---
Subjective: Subjective: Pain worse since yesterday afternoon - mostly LUQ now. Talks about elevated lipase and WBC. Objective: Objective: Reviewed primary note - family has asked us many of the same questions many times throughout admission. Changed to full liquid diet. Had CT on 08/02, US on 08/15. Vital Signs: Vital Signs Date Time Temp Pulse Resp B/P (MAP) Pulse Ox O2 Delivery O2 Flow Rate FiO2 08/18/19 11:00 98.1 55 20 166/85 (112) 94 Room Air 98.1 Labs: Laboratory Tests Test 08/17/19 15:11 White Blood Count 21.2 x10^3/uL Red Blood Count 4.48 x10^6/uL Hemoglobin 13.0 g/dL Hematocrit 40.5 % Mean Corpuscular Volume 90 fL Mean Corpuscular Hemoglobin 29 pg Mean Corpuscular Hemoglobin Concent 32 g/dL Red Cell Distribution Width 14.2 % Platelet Count 240 x10^3/uL Neutrophils (%) (Auto) 91 % Lymphocytes (%) (Auto) 5 % Monocytes (%) (Auto) 4 % Eosinophils (%) (Auto) 0 % Basophils (%) (Auto) 0 % Neutrophils # (Auto) 19.4 x10^3/uL Lymphocytes # (Auto) 1.0 x10^3/uL Monocytes # (Auto) 0.8 x10^3/uL Eosinophils # (Auto) 0.0 x10^3/uL Basophils # (Auto) 0.0 x10^3/uL Segmented Neutrophils % 88 % Lymphocytes % 7 % Monocytes % 5 % Platelet Estimate Adequate Sodium Level 143 mmol/L Potassium Level 5.0 mmol/L Chloride Level 104 mmol/L Carbon Dioxide Level 32 mmol/L Anion Gap 7 Blood Urea Nitrogen 27 mg/dL Creatinine 1.2 mg/dL Estimated GFR (Cockcroft-Gault) 47.7 BUN/Creatinine Ratio 23 Glucose Level 148 mg/dL Calcium Level 8.5 mg/dL Total Bilirubin 0.5 mg/dL Aspartate Amino Transf (AST/SGOT) 150 U/L Alanine Aminotransferase (ALT/SGPT) 141 U/L Alkaline Phosphatase 207 U/L Total Protein 7.2 g/dL Albumin 3.4 g/dL Albumin/Globulin Ratio 0.9 Lipase 1906 U/L PE: GEN: uncomfortable LUNGS: room air ABD: LUQ discomfort, soft, BS+ NEURO/PSYCH: A & O �3 A/P: Chronic abd and back pain Pancreatic cyst - evaluated w/ recent EUS/biopsy (benign) at Elevated lipase, elevated LFTs Leukocytosis on IV steroids (discontinued yesterday?) Recent parathyroidectomy - supposed to see home care rn @ S/p cholecystectomy -- Not making progress. ANA BANG Aug 18, 2019 12:53
[2019-08-18] MEDS: HYDROmorphone 2 MG/ML VIAL IV PRN (14:24)
[2019-08-18 15:00] VITALS: BP 133/77
[2019-08-18 19:00] VITALS: BP 147/80
[2019-08-18] MEDS: PATCH REMOVAL. MC SCH (21:00)
[2019-08-18 23:00] VITALS: BP 117/74
[2019-08-19] MEDS: HYDROmorphone 2 MG/ML VIAL IV PRN (01:25)
[2019-08-19] MEDS ORDERED: ONDANSETRON ODT 4 MG TAB.RAPDIS. PO PRN (02:15)
[2019-08-19 03:00] VITALS: BP 118/101
[2019-08-19] MEDS: LEVOTHYROXINE 137 MCG TABLET PO SCH (05:55)
[2019-08-19] MEDS: PANTOPRAZOLE 40 MG TABLET.DR. PO SCH (05:55)
[2019-08-19] MEDS: traMADol 50 MG TABLET PO PRN (05:56)
[2019-08-19] MEDS: KETOROLAC 15 MG/ML VIAL. IV PRN (05:56)
[2019-08-19 07:00] VITALS: BP 106/57
[2019-08-19] MEDS: BUDESONIDE 0.5 MG/2 ML NEBU. NEB SCH (08:24)
[2019-08-19] MEDS: LIPASE/PROTEAS/AMYLAS 10/32/42 CAPSULE.DR. PO SCH (08:41)
[2019-08-19] MEDS: VENLAFAXINE 50 MG TABLET. PO SCH (08:41)
[2019-08-19] MEDS: DOCUSATE SODIUM 100 MG CAPSULE. PO SCH (08:41)
[2019-08-19] MEDS: CALCIUM CARB/VIT D3 500/200 TABLET. PO SCH (08:42)
[2019-08-19 08:43] VITALS: BP 106/57
[2019-08-19] MEDS: LACTOBACILLUS RHAMNOSUS GG 1 CAPSULE. PO SCH (08:43)
[2019-08-19] MEDS: LISINOPRIL 10 MG TABLET PO SCH (08:43)
[2019-08-19] MEDS: POTASSIUM CHLORIDE 20 MEQ TABLET.ER. PO SCH (08:43)
[2019-08-19] MEDS: hydroCHLOROthiazide 12.5 MG CAPSULE PO SCH (08:44)
[2019-08-19] MEDS: POLYETHYLENE GLYCOL 3350 17 GM PACKET. PO SCH (08:44)
[2019-08-19] MEDS: LIDOCAINE (700MG/PATCH) PATCH. TD SCH (08:46)
--- NOTE | 2019-08-19 08:58 | SNU/HH DC ---
DISCHARGE WITH HOME HEALTH DISCHARGE INFORMATION: Final Diagnosis: Problems Medical Problems: (1) Acute pancreatitis Status: Acute (2) Dyslipidemia Status: Chronic (3) Elevated LFTs Status: Acute (4) Elevated lipase Status: Acute (5) Failure of outpatient treatment Status: Acute (6) HTN (hypertension) Status: Chronic (7) Hypothyroidism Status: Chronic (8) Intractable abdominal pain Status: Acute (9) Yeast cystitis Status: Acute Condition on Discharge: Stable CODE STATUS: Code Status: Full HOME HEALTH: Face to Face: I certify this patient is under my care and that I, or a nurse practitioner or physician's civil engineering assistant working with me, had a face to face encounter that meets the physician face to face encounter requirements with this patient on []. Medical Complications: Other (pancreatitis) Retirement For: Assess & Educate Safety RN For Eval/Treatment: Yes Physical Therapy For: Evalulation/Treatment Occupational Therapy For: Evaluation/Treatment Home Health Aide For: Self-care HEAD LOADER For: Community Resources Pt Meets Homebound Status: Unsteady balance w/ amb, POST DISCHARGE ORDERS: DIET AFTER DISCHARGE: ADA CERTIFICATION STATEMENT: Certification Statement: Certification Statement: Based on the above finding, I certify that this patient is confined to the home and needs intermittent alf care, physical therapy and/or speech therapy, or continues to need occupational therapy.~ This patient is under my care, and I have initiated the establishment of the plan of care.~ This patient will be followed by myself or a community physician who will periodically review the plan of care. Home Meds Reported Medications Gluc/Servando-Msm#2/C/D3/Fran/Born (XCFCHLZDPA-[id number]-GLE TAB) 1 Each Tablet, 1 TAB-CAP PO DAILY for arthritis, TAB 08/09/19 Venlafaxine Hcl (EFFEXOR XR) 150 Mg Cap.er.24h, 1 CAP PO DAILY for depression, #30 CAP 1 Refill 08/09/19 Levothyroxine Sodium (LEVOTHYROXINE SODIUM) 137 Mcg Tablet, 1 TAB PO DAILY for hypothyroid, #30 TAB 5 Refills 08/09/19 Lisinopril (LISINOPRIL) 5 Mg Tablet, 1 TAB PO DAILY for htn, #30 TAB 5 Refills 08/09/19 Pantoprazole Sodium (PROTONIX) 20 Mg Tablet.dr, 1 TAB PO DAILY for gerd, #30 TAB 08/09/19 Docusate Sodium (STOOL SOFTENER) 50 Mg Capsule, 50 MG PO DAILY for constipation, CAP 08/09/19 Acetaminophen (TYLENOL EXTRA STRENGTH) 500 Mg Tablet, 500 MG PO Q6HRS PRN for PAIN, TAB 08/09/19 Calcium Carbonate/Vitamin D3 (CALCIUM 500 + VIT D 200 CAPLET) 1 Each Tablet, 1 EACH PO DAILY for supplement, TAB 08/09/19 RILEY LUKE III DO Aug 19, 2019 08:58
--- NOTE | 2019-08-19 09:47 | PDOC ---
[employer] PROGRESS NOTE Chief Complaint Chief Complaint impression 1. Acute idioapthic pancreatitis r/o pseudocyst -non drinker, PAIN WORSE 08/13, narcotics reduced 2. Morbid obesity BMI 46.4 3. Wheezy, seasonal allergies -better - flovent on dc, CXR NAD 4. HTN, hypothy - chronic stable 5,. HArd of hearing since - has amplifier 6. Skin lesions - bug bites/scratches no evidence of shingles 7. cxr c/w Linear opacities left lung base likely scarring/atelectasis. 8. morbid obesity 9. transaminitis 10. UNCONTROLLED PAIN 11. LEUKOCYTOSIS History of Present Illness History of Present Illness 08/19/19 Pt seen and examined at bedside Accompanied by Pt was anxious and sad about her long hospital stay Pt reported that she had not been able to seek pain control until recently obtaining insurance She reported that pain was relieved when she was given Dilaudid Accompanied by D/w RN who reported her WBC is still elevated. Last reported WBC was 21 from 08/1708/18/19 Pt seen and examined by Dr. Miranda at bedside Tense discussion today day 10 of hospital stay and once started eating, recurrence epig pain and lipase up to 1509 She asks about [facility] records and we discussed - ahd endoscopic US and biopsy - benign results She started to cry as Dr. Miranda was asking about managing at home We also talked about PICC< TPN, ltac if this continues and if she wishes to pursue that route - dw SW, she wont qualify ltac but Maddy and rebecca will screen for place, TPN and PICC Dw too, he asks about panc CA - Dr. Miranda doubts this ALl images Dr. Miranda provided a copy, plus the [facility] biopsy is benign Vitals/I&O Vitals/I&O: Vital Signs Date Time Temp Pulse Resp B/P (MAP) Pulse Ox O2 Delivery O2 Flow Rate FiO2 08/19/19 08:43 57 106/57 08/19/19 08:25 93 Room Air 08/19/19 07:00 98.2 16 98.2 08/19/19 03:00 3.0 Physical Exam General: Alert, Oriented X3, Cooperative, No acute distress Heart: Regular rate, Normal S1, Normal S2 Lungs: Clear Abdomen: Normal bowel sounds, Soft, No tenderness, No hepatosplenomegaly, No masses Extremities: No clubbing, No cyanosis, No edema, Normal pulses, No tenderness/swelling Skin: No rashes, No breakdown, No significant lesion Labs Labs: Laboratory Tests Test 08/19/19 05:30 Lipase 3120 U/L ([id number]) Review of Systems Review of Systems: Pt co pain Pt denies fever Pt denies numbness and tingling Assessment and Plan Assessmemt and Plan Problems Medical Problems: (1) Acute pancreatitis Status: Acute (2) Dyslipidemia Status: Chronic (3) Elevated LFTs Status: Acute (4) Elevated lipase Status: Acute (5) Failure of outpatient treatment Status: Acute (6) HTN (hypertension) Status: Chronic (7) Hypothyroidism Status: Chronic (8) Intractable abdominal pain Status: Acute (9) Yeast cystitis Status: Acute Assessment Acute pancreatitis Dyslipidemia Elevated LFTs Elevated lipase HTN Hypothyroidism Plan Discharge in progress Discussed options for home health Provided prescriptions for Dilaudid 2mg/30tab for pain Prescription for augmentin PO DVT prophylaxis Full code Comment Review of Relevant I have reviewed the following items kira (where applicable) has been applied. Medications: Current Medications Medications (Trade) Dose Ordered Sig/Moraima Route PRN Reason Start Time Stop Time Status Last Admin Dose Admin Ondansetron HCl (Zofran Odt) 4 mg PRN Q6HRS PRN PO NAUSEA/VOMITING 1ST CHOICE 08/19/19 02:15 08/19/19 02:26 RILEY LUKE III DO Aug 19, 2019 09:47
--- NOTE | 2019-08-19 11:12 | PDOC ---
A/P: Chronic abd and back pain - CT 08/02, US 08/15 Pancreatic cyst - evaluated w/ imaging and recent E[facility] Pancreatitis (unclear etiology - FH pancreatitis? 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 Discussed option of TPN or celiac block yesterday. D/w Dr. Schuler - ?rehab w/ pain management or [facility] transfer - asked social work to see. Nurse called later before I saw the pt - they decided to leave and were not interested in waiting to see social work or any more providers. Continue pancreatic enzymes - nurse will call to pharmacy. ANA BANG Aug 19, 2019 11:12
== END 2019-08-19 11:19 | disposition home health service (06) | DRG 438 ==
LOC: ER 19:20 → 4 NORTH 21:19
PROVIDERS: ADMIT Family Medicine; ATTEND Family Medicine
PROC: 5A09357 Assistance with Respiratory Ventilation, Less than 24 Consecutive Hours, Continuous Positive Airway Pressure (ICD-10-PCS; principal; 2019-08-16)
PROC: 5A09357 Assistance with Respiratory Ventilation, Less than 24 Consecutive Hours, Continuous Positive Airway Pressure (ICD-10-PCS; 2019-08-17)
DX: K86.2 Cyst of pancreas (principal); K85.90 Acute pancreatitis without necrosis or infection, unspecified; Z68.42 Body mass index [BMI] 45.0-49.9, adult; J98.11 Atelectasis; B37.41 Candidal cystitis and urethritis; E66.01 Morbid (severe) obesity due to excess calories; C55 Malignant neoplasm of uterus, part unspecified; D86.9 Sarcoidosis, unspecified; E03.9 Hypothyroidism, unspecified; E78.5 Hyperlipidemia, unspecified; F32.9 Major depressive disorder, single episode, unspecified; G89.29 Other chronic pain; H91.90 Unspecified hearing loss, unspecified ear; I10 Essential (primary) hypertension; J45.909 Unspecified asthma, uncomplicated; K21.9 Gastro-esophageal reflux disease without esophagitis; L98.9 Disorder of the skin and subcutaneous tissue, unspecified; M20.40 Other hammer toe(s) (acquired), unspecified foot; M81.0 Age-related osteoporosis without current pathological fracture; Z80.9 Family history of malignant neoplasm, unspecified; Z82.49 Family history of ischemic heart disease and other diseases of the circulatory system; Z85.07 Personal history of malignant neoplasm of pancreas; Z85.42 Personal history of malignant neoplasm of other parts of uterus; Z88.1 Allergy status to other antibiotic agents; Z90.49 Acquired absence of other specified parts of digestive tract; Z90.710 Acquired absence of both cervix and uterus; Z87.891 Personal history of nicotine dependence; Z88.8 Allergy status to other drugs, medicaments and biological substances
CPT/HCPCS: 36415; 71046; 74022; 76705; 80053; 80061; 81001; 82553; 83605; 83690; 83735; 84484; 85007; 85025; 85610; 85651; 85730; 87040; 87086; 93005; 94640; 94760; 96374; 96375; J0360; J1170; J1885; J2270; J2405; J2543; J2920; J2930; J3010; J3490; J7030; J7613; J7620; J7626; Q0162; 99285-25; G0378